=== PATIENT | female | born 1940 | race Caucasian/White ===

== ENCOUNTER → 2017-09-15 17:16 | Outpatient (CLI) | payer MEDICARE, BC, SELFPAY | PROVIDERS: Visit Provider Urology | DX: R31.9 Hematuria, unspecified (principal); R82.99 Other abnormal findings in urine | CPT/HCPCS: 87086; 87088 ==

== ENCOUNTER → 2017-10-21 10:25 | Outpatient (CLI) | payer MEDICARE, BC, SELFPAY ==
[2017-10-21 13:03] LABS: Absolute Lymphocyte Count 0.65 X10^3/ul (0.83-4.51); Absolute Neutrophil Count 5.7 X10^3/uL (2.0-7.7); Basophil# 0.02 X10^3/uL; Basophil% 0.3 % (0-1); Eosinophil# 0.19 X10^3/uL; Eosinophils% 2.7 % (0-5); Hematocrit 37.1 % (37-47); Hemoglobin 11.9 g/dl (12.0-15.0); Lymphocyte # 0.65 X10^3/ul (4.0); Lymphocyte % 9.1 % (19-41); Mean Corp Hgb Conc 32.1 g/gl (32-36); Mean Corpuscular Hgb 30.4 pg (27.0-32.0); Mean Corpuscular Volume 94.6 fL (81-99); Mean Platelet Vol. 9.4 fl (6.2-12.0); Monocyte% 8.4 % (0-10); Neutrophil # 5.65 X10^3/uL (2.7-7.7); Neutrophil % 79.1 % (47-70); Platelet Count 246 K/mm3 (150-450); RBC Distribution Width CV 14.6 % (11.6-14.6); RBC Distribution Width SD 48.4 fl (35.1-43.9); Red Blood Count 3.92 M/mm3 (4.2-5.4); White Blood Count 7.1 K/mm3 (4.4-11.0)
[2017-10-21 13:06] LABS: POSITIVE COUNT NO; POSITIVE DIFFERENTIAL NO; POSITIVE MORPHOLOGY NO
[2017-10-21 13:20] LABS: Anion Gap 7 (5-15); BUN 13 mg/dL (7-18); BUN/Creat Ratio 14.1 RATIO (10-20); Calcium,Total 9.8 mg/dL (8.5-10.1); Chloride 99 mmol/L (98-107); Creatinine, Serum 0.92 mg/dL (0.55-1.02); EST Glomerular Filtration Rate 63 mL/min (>60); Est Glom Filt Rate - Afr Amer 76 mL/min (>60); Glucose 98 mg/dL (74-106); Potassium 3.7 mmol/L (3.5-5.1); Sodium Level 139 mmol/L (136-145); T4 Free Direct 1.52 ng/dL (0.76-1.46); Thyroid Stim Hormone (TSH) 0.97 uIU/mL (0.358-3.74)
== END ==
PROVIDERS: Visit Provider Family Medicine
DX: I10 Essential (primary) hypertension (principal); E03.9 Hypothyroidism, unspecified
CPT/HCPCS: 36415; 80048; 84439; 84443; 85025

== ENCOUNTER → 2017-11-24 16:38 | Outpatient (CLI) | payer MEDICARE, BC, SELFPAY | PROVIDERS: Family Provider Family Medicine; PCP Family Medicine; Visit Provider Urology | DX: N39.0 Urinary tract infection, site not specified (principal) | CPT/HCPCS: 87077; 87086; 87088; 87186 ==

== ENCOUNTER → 2017-12-05 17:24 | Outpatient (CLI) | payer MEDICARE, BC, SELFPAY ==
--- NOTE | 2017-12-05 17:27 | CT_ITS ---
STUDY: CT CHEST WITH CONTRAST REASON FOR EXAM: Female, 77 years old. History of bladder cancer RADIATION DOSAGE (If Supplied By Facility): CTDIvol = ( 19.15 ) mGy, DLP = ( 2632.46 ) mGycm TECHNIQUE: Transaxial imaging was performed following intravenous administration of 100ML ml of Isovue 300 contrast material. Individualized dose optimization techniques were used for this CT. COMPARISON: None. FINDINGS: The lungs are normal. There is no demonstrated pleural abnormality. Normal heart and pericardium. Normal mediastinum. Normal hilar regions. Normal enhanced pulmonary arteries. Normal aorta arch and descending thoracic aorta. Normal osseous structures. There is no demonstrated abnormality of the visualized upper abdomen. CT/Chest WITH Contrast IMPRESSION: Normal enhanced CT Chest examination. Electronically Signed: Ha Vanegas MD at 2:35 EDT Tel , Service support ,
--- NOTE | 2017-12-05 17:27 | CT_ITS ---
STUDY: CT ABDOMEN AND PELVIS WITH CONTRAST REASON FOR EXAM: Female, 77 years old. Bladder cancer RADIATION DOSAGE (If Supplied By Facility): CTDIvol = ( 19.15 ) mGy, DLP = ( 2632.46 ) mGycm TECHNIQUE: Transaxial images were obtained from the dome of the diaphragm to the symphysis pubis with oral contrast. 100ML ml of Isovue 300 contrast was administered. Sagittal and coronal images were reconstructed. Individualized dose optimization techniques were used for this CT. COMPARISON: 09/20/2016 FINDINGS: The visualized lung bases are unremarkable. The visualized portions of the heart are within normal limits. Hypoattenuated lesion in the right posterior hepatic segment with peripheral puddling enhancement, unchanged compared to prior imaging. Calcified stones within a minimally distended gallbladder. No pericholecystic inflammation. Biliary ducts are unremarkable. Normal spleen. Normal pancreas. Normal bilateral adrenal glands. Hypoattenuated lesions within both kidneys measuring near water density. Normal ureters. Normal visualized stomach. Normal small intestine. Normal colon. The appendix is visualized and appears normal. Mild atherosclerotic calcification of the abdominal vasculature. Normal inferior vena cava. Normal retroperitoneum. Marked irregularity of the anterior urinary bladder wall with centralized calcification and pericystic inflammation, worsened from prior imaging. Uterus is surgically absent. Normal abdominal wall. Normal osseous structures. CT/Abdomen/Pelvis WITH Contrast IMPRESSION: 1. Marked irregular thickening of the anterior urinary bladder wall with internal calcification and surrounding ablation, consistent with patient's known history of bladder cancer. 2. Cholelithiasis with no CT evidence of acute cholecystitis. 3. Simple appearing bilateral renal cysts 4. Right posterior hepatic segment hemangioma Electronically Signed: Ha Vanegas MD at 1:52 EDT Tel , Service support ,
[2017-12-05 18:10] LABS: CREATININE FINGERSTICK 1.1 mg/dL (0.55-1.02)
== END ==
PROVIDERS: Family Provider Family Medicine; PCP Family Medicine; Visit Provider Urology
DX: Z01.812 Encounter for preprocedural laboratory examination (principal); Z85.51 Personal history of malignant neoplasm of bladder
CPT/HCPCS: 71260; 74177; Q9967; A4216

== ENCOUNTER → 2018-01-02 10:42 | Outpatient (CLI) | payer MEDICARE, BC, SELFPAY ==
[2018-01-02 12:27] LABS: Anion Gap 8 (5-15); BUN 10 mg/dL (7-18); BUN/Creat Ratio 12.1 RATIO (10-20); Calcium,Total 9.5 mg/dL (8.5-10.1); Chloride 98 mmol/L (98-107); Creatinine, Serum 0.83 mg/dL (0.55-1.02); EST Glomerular Filtration Rate 71 mL/min (>60); Est Glom Filt Rate - Afr Amer 86 mL/min (>60); Glucose 117 mg/dL (74-106); Potassium 3.9 mmol/L (3.5-5.1); Sodium Level 136 mmol/L (136-145)
== END ==
PROVIDERS: Family Provider Family Medicine; PCP Family Medicine; Visit Provider Family Medicine
DX: I10 Essential (primary) hypertension (principal)
CPT/HCPCS: 36415; 80048

== ENCOUNTER 2018-01-17 10:14 | Day surgery (SDC) | payer MEDICARE, BC, SELFPAY ==
--- NOTE | 2018-01-17 | COLBX_PTH ---
PATIENT: Mary ,SHAE Amado LOC: EN U#:[id number] AGE/SX: 77/F ROOM: RE01/17/[address]: Dr. Marta Covarrubias MD : 1940 BED: DIS: 01/17/2018 SPEC #: [id number] RECD: 01/17/18 14:49 STATUS: GENEVA REQ #: [id number] MAYA: 01/17/18 00:[address]: Marta Covarrubias DEPT: SURGICAL PATHOLOGY RECD BY: Ha Mcneal ENTERED: 01/17/18 14:49 SP TYPE: COLON BX OTHR DR: Dr. Yrn Allen MD Tissues: A - Ascending colon B - Descending colon Procedures: Surgery Specimen Level IV HEADER OPERATION: Colonoscopy (MAC) PRE-OP DIAGNOSIS: Screening TISSUE SUBMITTED: A - Ascending colon polyp biopsy, B - Descending colon polyp MICROSCOPIC DIAGNOSIS A. Ascending colon polyp, biopsy: Tubular adenoma. B. Descending colon polyp, biopsy: Tubular adenoma. OSITO:anai 01/18/18 MICROSCOPIC DESCRIPTION Slides are reviewed. GROSS DESCRIPTION A - Received in fixative is one container labeled with the patient's name and designated ascending colon polyp biopsy. The specimen consists of one irregular fragment of light gan soft tissue that measures 0.3 x 0.3 x 0.1 cm. The specimen is totally submitted in one cassette. B - Received in fixative is one container labeled with the patient's name and designated descending colon polyp. The specimen consists of a piece of gan-pink polyp measuring 0.5 x 0.5 x 0.3 cm. The specimen is totally submitted in one cassette. / OSITO:anai 01/17/18 TC:1 CPT: 58495 x2
[2018-01-17 10:40] VITALS: BP 121/58; PULSE 81; RESP 18; TEMP 37.2; O2SAT 100; BMI 31.4
[2018-01-17 12:23] VITALS: BP 100/57; BP 121/58; PULSE 70; RESP 16; TEMP 36.6; O2SAT 100
[2018-01-17 12:28] VITALS: BP 108/69; BP 121/58; PULSE 71; RESP 18; O2SAT 100
--- NOTE | 2018-01-17 12:30 | OP.ENDO_ITS ---
Patient Name: Clover Hernandez Procedure Date: 01/17/2018 11:29 AM Date of : 1940 Age: 77 Procedure: Colonoscopy Indications: Screening for colorectal malignant neoplasm Providers: Marta Covarrubias MD Referring MD: Marta Covarrubias MD Medicines: Monitored Anesthesia Care Patient Profile: Last Colonoscopy: none. The patient's first colonoscopy is today. Complications: No immediate complications. Procedure: Pre-Anesthesia Assessment: - Prior to the procedure, a History and Physical was performed, and patient medications and allergies were reviewed. The patient's tolerance of previous anesthesia was also reviewed. The risks and benefits of the procedure and the sedation options and risks were discussed with the patient. All questions were answered, and informed consent was obtained. Prior Anticoagulants: The patient has taken no previous anticoagulant or antiplatelet agents. ASA Grade Assessment: II - A patient with mild systemic disease. After reviewing the risks and benefits, the patient was deemed in satisfactory condition to undergo the procedure. After I obtained informed consent, the scope was passed under direct vision. Throughout the procedure, the patient's blood pressure, pulse, and oxygen saturations were monitored continuously. The pediatric colonoscope was introduced through the anus and advanced to the cecum, identified by the appendiceal orifice, IC valve and transillumination. The colonoscopy was somewhat difficult due to significant looping. Successful completion of the procedure was aided by applying abdominal pressure. The patient tolerated the procedure well. The quality of the bowel preparation was good. Scope In: 11:39:33 AM Scope Withdrawal Time 0 hours 18 minutes 57 seconds Scope Out: 12:17:28 PM Total Procedure Duration Time 0 hours 37 minutes 55 seconds Findings: A less than 5 mm polyp was found in the ascending colon. The polyp was sessile. The polyp was removed with a cold biopsy forceps. Resection and retrieval were complete. A 4 to 7 mm polyp was found in the descending colon. The polyp was semi-sessile. The polyp was removed with a hot snare. Resection and retrieval were complete. Multiple small-mouthed diverticula were found in the sigmoid colon and ascending colon. Hemorrhoids were found on perianal exam. Impression: - One less than 5 mm polyp in the ascending colon, removed with a cold biopsy forceps. Resected and retrieved. - One 4 to 7 mm polyp in the descending colon, removed with a hot snare. Resected and retrieved. - Diverticulosis in the sigmoid colon and in the ascending colon. - Hemorrhoids found on perianal exam. Recommendation: - Discharge patient to home. - High fiber diet. - Continue present medications. - Await pathology results. - Repeat colonoscopy in 3 - 5 years for surveillance based on pathology results. Procedure Code(s): --- Professional --- 41222, Colonoscopy, flexible; with removal of tumor(s), polyp(s), or other lesion(s) by snare technique 07303, 59, Colonoscopy, flexible; with biopsy, single or multiple Diagnosis Code(s): --- Professional --- Z12.11, Encounter for screening for malignant neoplasm of colon D12.2, Benign neoplasm of ascending colon D12.4, Benign neoplasm of descending colon K64.9, Unspecified hemorrhoids K57.30, Diverticulosis of large intestine without perforation or abscess without bleeding CPT copyright 2017 [employer]. All rights reserved. The codes documented in this report are preliminary and upon plug overwrap machine tender review may be revised to meet current compliance requirements. MD Marta Kearns MD 01/17/2018 12:30:49 PM This report has been signed electronically. Number of Addenda: 0 Note Initiated On: 01/17/2018 11:29 AM
[2018-01-17 12:33] VITALS: BP 109/78; BP 121/58; PULSE 72; RESP 18; O2SAT 99
[2018-01-17 12:38] VITALS: BP 116/65; BP 121/58; PULSE 71; RESP 18; TEMP 36.8; O2SAT 100
[2018-01-17 13:18] VITALS: BP 121/58
== END 2018-01-17 13:19 | disposition home or self-care (01) ==
LOC: EN 10:15 → AC 10:18
PROVIDERS: Family Provider Family Medicine; PCP Family Medicine; Referring Provider Surgery; Visit Provider Surgery
PROC: 0DJD8ZZ Inspection of Lower Intestinal Tract, Via Natural or Artificial Opening Endoscopic (ICD-10-PCS; CPT 45378; principal; 2018-01-17 11:25)
DX: Z12.11 Encounter for screening for malignant neoplasm of colon (principal); D12.2 Benign neoplasm of ascending colon; D12.4 Benign neoplasm of descending colon; K57.30 Diverticulosis of large intestine without perforation or abscess without bleeding; K64.9 Unspecified hemorrhoids; I10 Essential (primary) hypertension; E03.9 Hypothyroidism, unspecified; R32 Unspecified urinary incontinence; R35.0 Frequency of micturition; D64.9 Anemia, unspecified; Z78.0 Asymptomatic menopausal state; Z79.899 Other long term (current) drug therapy; Z85.51 Personal history of malignant neoplasm of bladder; Z87.440 Personal history of urinary (tract) infections; Z92.3 Personal history of irradiation; Z92.21 Personal history of antineoplastic chemotherapy; Z87.891 Personal history of nicotine dependence; Z90.710 Acquired absence of both cervix and uterus
CPT/HCPCS: 45380; 45385; 88305; J7120; A4216

== ENCOUNTER 2018-02-24 15:53 | Inpatient (IN) | payer MEDICARE, BC, SELFPAY ==
[2018-02-23 13:10] VITALS: BMI 28.6
[2018-02-24 15:53] VITALS: BP 113/53; PULSE 85; RESP 14; TEMP 36.9; O2SAT 95
[2018-02-24 17:16] LABS: Mucous, Urine 0 SEEN /hpf (<or=2+)
[2018-02-24 17:50] LABS: Color, Urine Red (Yellow); Glucose, Dipstick Normal (Normal); Ketone-Dipstick 5 mg/dl (Negative); Leukocyte Esterase-Dipstick 500 /ul (Negative); Nitrite-Dipstick Positive (Negative); Occult Blood-Urine 250 /ul (Negative); Protein-Dipstick 100 mg/dl (Negative); Urine Bilirubin Dipstick Negative (Negative); Urine Clarity Cloudy (Clear); Urine Urobilinogen 1 mg/dl (Normal)
[2018-02-24 17:51] LABS: Absolute Lymphocyte Count 0.83 X10^3/ul (0.83-4.51); Absolute Neutrophil Count 8.1 X10^3/uL (2.0-7.7); Basophil# 0.01 X10^3/uL; Basophil% 0.1 % (0-1); Eosinophil# 0.01 X10^3/uL; Eosinophils% 0.1 % (0-5); Hematocrit 27.8 % (37-47); Hemoglobin 8.5 g/dl (12.0-15.0); Lymphocyte # 0.83 X10^3/ul (4.0); Lymphocyte % 8.5 % (19-41); Mean Corp Hgb Conc 30.6 g/gl (32-36); Mean Corpuscular Hgb 27.3 pg (27.0-32.0); Mean Corpuscular Volume 89.4 fL (81-99); Mean Platelet Vol. 8.7 fl (6.2-12.0); Monocyte# 0.83 X10^3/uL; Monocyte% 8.5 % (0-10); Neutrophil # 8.12 X10^3/uL (2.7-7.7); Neutrophil % 82.6 % (47-70); Platelet Count 289 K/mm3 (150-450); RBC Distribution Width CV 18.2 % (11.6-14.6); RBC Distribution Width SD 59.5 fl (35.1-43.9); Red Blood Count 3.11 M/mm3 (4.2-5.4); White Blood Count 9.8 K/mm3 (4.4-11.0)
[2018-02-24 17:55] LABS: POSITIVE COUNT NO; POSITIVE DIFFERENTIAL NO; POSITIVE MORPHOLOGY NO
[2018-02-24 18:03] LABS: Anion Gap 8 (5-15); BUN 14 mg/dL (7-18); BUN/Creat Ratio 15.8 RATIO (10-20); Calcium,Total 8.4 mg/dL (8.5-10.1); Chloride 102 mmol/L (98-107); Creatinine, Serum 0.89 mg/dL (0.55-1.02); EST Glomerular Filtration Rate 66 mL/min (>60); Est Glom Filt Rate - Afr Amer 79 mL/min (>60); Estimated Creatinine Clearance 45.71 ml/min; Glucose 109 mg/dL (74-106); Potassium 3.2 mmol/L (3.5-5.1); Sodium Level 137 mmol/L (136-145)
[2018-02-24 18:17] LABS: Amorphous Sediment 4+; Bacteria 4+ /hpf (None Seen); Red Blood Cells-Urine > 100 SEEN /hpf (0-5); Squamous Epithelial Cells - UA 25-50 SEEN /hpf (5-10); White Blood Cells >100 SEEN /hpf (0-5)
[2018-02-24 18:50] LABS: International Normalized Ratio 1.3; Prothrombin Time (Protime)PT. 15.8 SECONDS (11.7-14.9)
[2018-02-24 19:13] VITALS: BP 145/75; PULSE 81; RESP 16; O2SAT 93
--- NOTE | 2018-02-24 19:22 | ED.DCSUM_ITS ---
- ER Visit Summary Date of Service: 02/24/18 Chief Complaint: [Romeo catheter problem] History of Present Illness: The patient is a 77 F [presents the emergency department complaint of Romeo catheter not draining. Patient has had a Romeo catheter in for about 2 weeks. Patient has a history of bladder cancer and recently was evaluated for possible surgery to remove her bladder and she was deemed not to be a good surgical candidate. Patient states that she had no urine in the Romeo bag this morning. Patient did state that her depends however was wet. Patient was advised by Dr. Alonzo to be evaluated in the emergency department. Patient denies any fevers. She has not had any vomiting. Patient denies any blood in her stool or black tarry stools. Patient currently on Coumadin for history of DVT and is also on Lovenox.] Physical Examination: [HEENT-PERRLA, EOMI. Cranial nerves II through XII grossly intact. TMs clear. Mucous membranes moist. No adenopathy. Cardiovascular-regular rate and rhythm without murmur or ectopy Lungs-clear to auscultation, chest wall stable without crepitus or subcu emphysema Abdomen-normoactive bowel sounds, soft, nontender, no rebound or rigidity, no peritoneal signs. Extremities-intact ?4, normal range of motion, normal pulses, atraumatic] Test Results: [CBC with additional cannot 9.8, hemoglobin 8.5, hematocrit 28, platelets 289. Chemistries unremarkable. INR was 1.3. Bladder scan initially only showed 28 cc.] Urinalysis was positive for greater than 100 WBCs, positive for nitrites, positive for 500 leukocyte esterase, positive for +4 bacteria. Urine culture was sent. Emergency Department Course and Treatment: [New Romeo catheter was placed.] Treatment Plan: [Patient was ordered vancomycin and Rocephin] Disposition: [Admit] Impression: [UTI Anemia Coumadin coagulopathy] This note was generated with [employer] dictation software. It may contain incorrect words, spelling, and punctuation that were not noted in review of the chart prior to signing ED Disposition - Plan for ED Patient: Chief Complaint: Romeo C/O Referrals: Yrn Allen MD [Primary Care Provider] -
--- NOTE | 2018-02-24 19:28 | PCM.HP.STD ---
Problem List (1) Cystitis Status: Acute History of Present Illness Date of Admission: 02/24/18 Chief Complaint: dominguez catheter not draining The patient is a 77 year old F with a significant history of bladder cancer status post chemotherapy and radiation and with an indwelling Dominguez catheter who presented to the emergency department because her catheter was not draining. However her depends were wet. Patient talked to her urologist who sent patient to the emergency department for for possible change of her urinary catheter. At emergency department her Dominguez catheter was changed and it was noticed to be draining appropriately. Her urinalysis was abnormal. Family reported that occasionally patient has chills. Patient was on outpatient cefdinir for a urinary tract infection. In regard to her bladder cancer patient was scheduled for surgery on the at [facility]. However while on the operating table it was found that her left leg was swollen. Also after patient had received anesthesia it was realized that her breathing pattern was not good. Because of the above-stated reasons and because of general deconditioning her bladder surgery was called off. Subsequent tests showed that patient had 2 blood clots in the left leg; one above the knee and one below the knee. She was started on Lovenox. About 3 days ago Coumadin was also started. At emergency department patient's INR was subtherapeutic at 1.3. Also to follow-up patient has low hemoglobin. In regard to her bladder cancer patient follows up with Dr. Mcgill Past Medical History Past Medical History (Chronic Problems): Chronic Problems (Last Reviewed 02/24/18 @ 20:24 by Murtaza Stanley MD) Bladder carcinoma (Chronic) History of bladder cancer (Chronic) Medical History: Medical History (Last Reviewed 02/24/18 @ 20:24 by Murtaza Stanley MD) Encounter for adjustment or management of vascular access device (Acute) Z45.2 Bladder carcinoma (Chronic) C67.9 Bladder cancer (Acute) C67.9 History of bladder cancer (Chronic) Z85.51 Hematuria, microscopic R31.29 History of hysterectomy Z98.890, Z90.710 Hypothyroidism E03.9 Incontinence R32 Recurrent UTI N39.0 UTI (urinary tract infection) N39.0 Urinary frequency R35.0 Hypertension I10 Allergies Sulfa (Sulfonamide Antibiotics) Allergy (Intermediate, Verified 02/24/18 15:57) Rash adhesive tape Adverse Reaction (Mild, Verified 02/24/18 15:57) Rash bee venom protein (honey bee) Adverse Reaction (Verified 02/24/18 15:57) Swelling Home Medications: Ambulatory Orders Medication Instructions Recorded traMADol [Ultram] 50 mg PO BID 11/22/15 Levothyroxine [Synthroid] 100 mcg PO DAILY 05/14/16 Acetaminophen [Tylenol Extra 500 mg PO Q6H PRN PRN 02/23/18 Strength] Cefdinir [Omnicef [equiv]] 300 mg PO Q12H 02/23/18 Fluoxetine [Prozac] 20 mg PO DAILY 02/23/18 Mirabegron [Myrbetriq] 50 mg PO DAILY 02/23/18 Warfarin [Coumadin ([facility])] 2.5 mg PO DAILY 02/23/18 Docusate Sodium [Colace] 100 mg PO DAILY 02/24/18 Enoxaparin Sodium [Lovenox] 80 mg SQ BID 02/24/18 Hydroxyzine HCl 1 - 2 tab PO DAILY 02/24/18 Surgical History: Surgical History (Last Reviewed 02/24/18 @ 20:24 by Murtaza Stanley MD) History of back surgery Z98.890 History of renal stent Z98.890 History of tonsillectomy Z98.890, Z90.89 S/P cystoscopy Z98.890 s/p port placement Lives: Spouse/ Significant Other Smoking Status: Former smoker Alcohol: None - *Family History Maternal Family History: Family History (Last Reviewed 02/24/18 @ 20:25 by Murtaza Stanley MD) Mother Hypertension Arthritis Father Metastatic cancer Review of Systems Constitutional: Reports: Chills HEENT: Denies: Head Aches, Sinus Congestion, Sinus Drainage Cardiovascular: Denies: Chest Pain, Palpitations Respiratory: Denies: Cough, Shortness of breath at rest, Sputum production Gastrointestinal: Denies: Abdominal Pain, Nausea, Vomiting Genitourinary: Reports: - - Dominguez catheter was not draining; but her depends were getting wet. Musculoskeletal: Reports: Back Pain. Denies: Joint Pain, Joint Tenderness Skin: Reports: Wounds - At the gluteal region Neurological: Denies: Numbness, Tingling, Focal weakness Psychiatric: Denies: Anxiety, Depression, Homicidal Ideations, Suicidal Ideations Hematologic/ Lymphatic: Denies: Easy Bruising, Easy Bleeding VTE Information - Inpt Only VTE Present on Admission: Yes VTE Mechan Device Prophylaxis: None VTE Pharm Prophylaxis ordered?: No Reason prophylaxis not ordered:: Treatment Not Indicated - On treatment dose of Lovenox and Coumadin for DVT. Patient Problems: Active and Suspected Problems (Last Reviewed 02/24/18 @ 20:24 by Murtaza Stanley MD) Cystitis (Acute) - Physical Exam General: Alert, Oriented x3, Cooperative HEENT: Atraumatic, PERRLA, EOMI, Normocephalic Neck: Supple, No JVD, Negative Carotid Bruits Lungs: Clear to auscultation, Normal air movement, - - Port-A-Cath on the right side of chest. Cardiovascular: Regular rate, No murmurs Abdomen: Bowel Sounds Present, Soft, Non Tender Extremities: No edema, Capillary Refill Less than 3 Seconds, Edema - Bilateral legs with some bruises on beal of left leg. Skin: No rashes, Ulcer/ Wound - Pressure ulcer on cheek of left buttocks and skin projections on the right buttocks. Noted to have prolapsed rectum. Musculoskeletal: No Tenderness to Palpation of Joints or Extremities Neurological: Neuro grossly intact Psych/Mental Status: Normal Affect, Appropriate Vital Signs Temp Pulse Resp BP Pulse Ox 98.4 F 81 16 145/75 H 93 02/24/18 15:53 02/24/18 19:13 02/24/18 19:13 02/24/18 19:13 02/24/18 19:13 Oxygen Delivery Method Room Air Weight: 79.379 kg Body Mass Index (BMI) 30.0 Laboratory Tests Past 24 Hrs 02/24/18 02/24/18 02/24/18 16:57 17:35 17:35 WBC 9.8 RBC 3.11 L Hgb 8.5 L Hct 27.8 L MCV 89.4 MCH 27.3 MCHC 30.6 L RDW 18.2 H RDW Differential 59.5 H Plt Count 289 MPV 8.7 Immature Gran % (Auto) 0.200 Neut % (Auto) 82.6 H Lymph % (Auto) 8.5 L [place] % (Auto) 8.5 Eos % (Auto) 0.1 Baso % (Auto) 0.1 Absolute Neuts (auto) 8.1 H Absolute Lymphs (auto) 0.83 Total Counted Not Reportable PT INR Sodium 137 Potassium 3.2 L Chloride 102 Carbon Dioxide 27.0 Anion Gap 8 BUN 14 Creatinine 0.89 Estim Creat Clear Calc 45.71 Est GFR (MDRD) Af Amer 79 Est GFR (MDRD) Non-Af 66 BUN/Creatinine Ratio 15.8 Glucose 109 H Calcium 8.4 L Urine Color Red Urine Clarity Cloudy Urine pH 8.0 Ur Specific [place] 1.010 Urine Protein 100 H Urine Glucose (UA) Normal Urine Ketones 5 H Urine Occult Blood 250 H Urine Nitrite Positive H Urine Bilirubin Negative Urine Urobilinogen 1 H Ur Leukocyte Esterase 500 H Urine RBC > 100 SEEN Urine WBC >100 SEEN Ur Squamous Epith Cells 25-50 SEEN Amorphous Sediment 4+ Urine Bacteria 4+ Urine Mucus 0 SEEN 02/24/18 18:20 WBC RBC Hgb Hct MCV MCH MCHC RDW RDW Differential Plt Count MPV Immature Gran % (Auto) Neut % (Auto) Lymph % (Auto) [place] % (Auto) Eos % (Auto) Baso % (Auto) Absolute Neuts (auto) Absolute Lymphs (auto) Total Counted PT 15.8 H INR 1.3 Sodium Potassium Chloride Carbon Dioxide Anion Gap BUN Creatinine Estim Creat Clear Calc Est GFR (MDRD) Af Amer Est GFR (MDRD) Non-Af BUN/Creatinine Ratio Glucose Calcium Urine Color Urine Clarity Urine pH Ur Specific [place] Urine Protein Urine Glucose (UA) Urine Ketones Urine Occult Blood Urine Nitrite Urine Bilirubin Urine Urobilinogen Ur Leukocyte Esterase Urine RBC Urine WBC Ur Squamous Epith Cells Amorphous Sediment Urine Bacteria Urine Mucus Assessment/Plan All Active Problems (Last Reviewed 02/24/18 @ 20:24 by Murtaza Stanley MD) Cystitis (Acute) Encounter for adjustment or management of vascular access device (Acute) Bladder cancer (Acute) The patient is a 77 year old F with a significant history of bladder cancer status post chemotherapy and radiation and with an indwelling Dominguez catheter who presented to the emergency department because her catheter was not draining; and found to have persistent abnormal urinalysis;as well as anemia. Acute cystitis Patient was started on cefdinir before this hospitalization. Of note she had a Dominguez catheter placed and this could be due to colonization. Will treat as acute cystitis. Urine cultures are pending. Patient received Ceftriaxone at the emergency department. Ceftriaxone continued. DVT In the last 2 weeks two blood clot was found in patient's left leg. Family reported that she has a previous history of DVT in the right leg. Of concern is that patient has a decreased hemoglobin. However to prevent PE will continue Coumadin with Lovenox bridge. We will continue same dose of Coumadin 2.5 mg without increasing the dosage. Consideration was made for heparin drip. However we will continue Lovenox and Coumadin for now. Bladder cancer Patient follows up with Dr. Alonzo and Dr. Mcgill Continue outpatient follow-up. We will continue mirabegron for bladder spasms. Normocytic Anemia RBCs are low. Review of old records show that her hemoglobin has dropped by about 3-4. Her last chemotherapy and radiation was about a year ago and is unlikely causing her symptoms. Occult stool; iron studies and haptoglobin ordered. LDH will be high anyway for patients with cancer. Consider discussing with Dr. Mcgill who is patient's oncologist Pressure ulcer on gluteal region Calmoseptine ordered Wound care consult. Back pain Patient and family reports a history of spinal stenosis with rods in her back. Ultram continued. Depression Prozac continued Hypothyroidism Synthroid continued. DVT prophylaxis Not indicated in the setting of patient being on Lovenox and Coumadin for DVT. Code Visit OBSV E&M: 29173 Initial observation care L3
[2018-02-24] MEDS: Ceftriaxone 1 GM/50 ML BAG IV (19:34)
[2018-02-24 19:39] VITALS: TEMP 38.1
[2018-02-24] MEDS: Acetaminophen 325 MG Tablet 650 MG PO (19:53)
[2018-02-24 21:22] VITALS: BP 106/49; PULSE 88; RESP 16; TEMP 37.4; O2SAT 94
[2018-02-24 21:36] VITALS: BMI 29.1
[2018-02-24 22:07] LABS: Iron 15 ug/dL (50-170); Iron Binding Capacity,Total 118 ug/dL (250-450); PERCENT IRON SATURATION 12.7 % (15.0-55.0)
[2018-02-24] MEDS: Enoxaparin 80 MG/0.8 ML Syringe SC (22:36)
[2018-02-24] MEDS: traMADol 50 MG Tablet PO (22:37)
[2018-02-24 22:41] VITALS: O2SAT 94
[2018-02-24] MEDS: Menthol/Lanolin/Calamine/Znox 113 GM Tube 1 APPLIC TOPICAL (22:45)
[2018-02-24 22:54] LABS: Ferritin 652 ng/mL (8-252)
[2018-02-24] MEDS: hydrOXYzine PAM 25 MG Capsule PO (23:24)
[2018-02-24] MEDS: Zolpidem Tartrate 5 MG Tablet PO (23:24)
--- NOTE | 2018-02-24 23:48 | NURSING ---
Called Lab about STAT haptoglobin put in by DR. Stanley and they said lab would come up in the am. to draw it with the other labs because it is sent out and results will not be back for 3 or 4 days.
[2018-02-25 02:31] VITALS: BP 124/53; PULSE 82; RESP 16; TEMP 36.8; O2SAT 95
--- NOTE | 2018-02-25 05:19 | NURSING ---
Checked with Villa in lab about PT/INR draw from central line. He advised against it in case someone would want to result a PTT off that lab sample which would not be allowed. He will notify tech to come and draw peripherally.
[2018-02-25] MEDS: Levothyroxine 100 MCG Tablet PO (06:17)
[2018-02-25 07:31] LABS: Absolute Lymphocyte Count 0.69 X10^3/ul (0.83-4.51); Absolute Neutrophil Count 6.8 X10^3/uL (2.0-7.7); Basophil# 0.02 X10^3/uL; Basophil% 0.2 % (0-1); Eosinophil# 0.12 X10^3/uL; Eosinophils% 1.4 % (0-5); Hematocrit 28.2 % (37-47); Hemoglobin 8.3 g/dl (12.0-15.0); Lymphocyte # 0.69 X10^3/ul (4.0); Lymphocyte % 8.2 % (19-41); Mean Corp Hgb Conc 29.4 g/gl (32-36); Mean Corpuscular Hgb 27.1 pg (27.0-32.0); Mean Corpuscular Volume 92.2 fL (81-99); Mean Platelet Vol. 9.5 fl (6.2-12.0); Monocyte# 0.74 X10^3/uL; Monocyte% 8.8 % (0-10); Neutrophil # 6.77 X10^3/uL (2.7-7.7); Neutrophil % 80.9 % (47-70); Platelet Count 312 K/mm3 (150-450); RBC Distribution Width CV 18.1 % (11.6-14.6); RBC Distribution Width SD 58.3 fl (35.1-43.9); Red Blood Count 3.06 M/mm3 (4.2-5.4); White Blood Count 8.4 K/mm3 (4.4-11.0)
[2018-02-25 07:32] LABS: POSITIVE COUNT NO; POSITIVE DIFFERENTIAL NO; POSITIVE MORPHOLOGY NO
[2018-02-25 07:40] VITALS: O2SAT 92
[2018-02-25 07:42] LABS: International Normalized Ratio 1.2; Prothrombin Time (Protime)PT. 15.5 SECONDS (11.7-14.9)
[2018-02-25 08:09] LABS: Anion Gap 8 (5-15); BUN 13 mg/dL (7-18); BUN/Creat Ratio 14.8 RATIO (10-20); Calcium,Total 8.6 mg/dL (8.5-10.1); Chloride 103 mmol/L (98-107); Creatinine, Serum 0.88 mg/dL (0.55-1.02); EST Glomerular Filtration Rate 66 mL/min (>60); Est Glom Filt Rate - Afr Amer 80 mL/min (>60); Estimated Creatinine Clearance 46.23 ml/min; Glucose 92 mg/dL (74-106); Potassium 3.7 mmol/L (3.5-5.1); Sodium Level 138 mmol/L (136-145)
[2018-02-25 08:12] VITALS: BP 112/60; PULSE 88; RESP 18; TEMP 37.3; O2SAT 96
[2018-02-25 08:14] VITALS: PULSE 88; RESP 18; O2SAT 93
[2018-02-25] MEDS: FLUoxetine 20 MG Capsule PO (11:00)
[2018-02-25] MEDS: Menthol/Lanolin/Calamine/Znox 113 GM Tube 1 APPLIC TOPICAL ×2 (11:00→22:24)
[2018-02-25] MEDS: Docusate Sodium 100 MG Capsule PO (11:00)
[2018-02-25] MEDS: traMADol 50 MG Tablet PO ×2 (11:00→22:22)
[2018-02-25] MEDS: Mirabegron 50 MG TAB.ER.24H PO (11:01)
[2018-02-25] MEDS: Enoxaparin 80 MG/0.8 ML Syringe SC ×2 (11:01→22:23)
[2018-02-25 15:00] VITALS: PULSE 80
--- NOTE | 2018-02-25 15:59 | CM.UR ---
See RM assessment. Patient denies any needs. States she does not want to go to SNF. States that she is fearful to do transfer. Been doing sponge baths due to fear of the transfers. PT is currently recommending 5x a week therapy. Patient at this time doesn't want to go to SNF but is willing to do home care. Is agreeable to [facility]. Ayla Valera RN, CCM.
--- NOTE | 2018-02-25 18:26 | PN_ITS ---
Patient Problems: Active and Suspected Problems (Last Reviewed 02/24/18 @ 20:24 by Murtaza Stanley MD) Cystitis (Acute) Subjective: Feels well, no complaints at this time, no lightheadedness or dizziness. Ousmane is now working Vitals/I&O's: Vital Signs Temp Pulse Resp BP Pulse Ox 99.1 F 80 18 112/60 93 02/25/18 08:12 02/25/18 15:00 02/25/18 08:14 02/25/18 08:12 02/25/18 08:14 Oxygen Delivery Method Room Air Weight: 170 lb 10.205 oz Body Mass Index (BMI) 29.1 Intake and Output for Last 24 Hours 02/23/18 02/24/18 02/25/18 23:59 23:59 23:59 Intake Total 1890 / 1890 Output Total 1025 / 1025 Balance 865 / 865 General: Alert, Oriented x3, Cooperative, No apparent distress HEENT: Atraumatic, EOMI, Normocephalic Oral: Moist Mucosa Neck: Supple, No JVD Lungs: Clear to auscultation, Normal air movement, No rhonchi, No wheeze, No rales Cardiovascular: Regular rate, Regular Rhythm, Normal S1, Normal S2, No murmurs Abdomen: Soft, Non Tender, Non-Distended, No Hepato-splenomegaly Extremities: No edema, Capillary Refill Less than 3 Seconds Skin: No rashes, No breakdown Neurological: Neuro grossly intact, Sensory exam intact to light touch and pain Microbiology Past 72 Hours 02/24/18 16:57 Urine Catheter - Dominguez Urine Culture - Preliminary GNR Poss Pseudomonas sp Laboratory Results 02/24/18 17:35: Iron 15 L, TIBC 118 L, Iron Saturation 12.7 L 02/24/18 17:35: Ferritin 652 H 02/24/18 18:20: PT 15.8 H, INR 1.3 02/25/18 06:10: PT 15.5 H, INR 1.2 02/25/18 06:10: Haptoglobin Pending 02/25/18 06:10: WBC 8.4, RBC 3.06 L, Hgb 8.3 L, Hct 28.2 L, MCV 92.2, MCH 27.1, MCHC 29.4 L, RDW 18.1 H, RDW Differential 58.3 H, Plt Count 312, MPV 9.5, Immature Gran % (Auto) 0.500, Neut % (Auto) 80.9 H, Lymph % (Auto) 8.2 L, [place] % (Auto) 8.8, Eos % (Auto) 1.4, Baso % (Auto) 0.2, Absolute Neuts (auto) 6.8, Absolute Lymphs (auto) 0.69 L, Total Counted Not Reportable 02/25/18 06:10: Sodium 138, Potassium 3.7, Chloride 103, Carbon Dioxide 27.0, Anion Gap 8, BUN 13, Creatinine 0.88, Estim Creat Clear Calc 46.23, Est GFR (MDRD) Af Amer 80, Est GFR (MDRD) Non-Af 66, BUN/Creatinine Ratio 14.8, Glucose 92, Calcium 8.6 Current Medications Acetaminophen (Tylenol) 650 mg PO Q6H PRN PRN PRN Reason: Mild Pain (scale 0-3)/T>100.7 Bisacodyl (Dulcolax) 10 mg PO DAILY PRN PRN PRN Reason: Constipation Calamine/Phenol (Calmoseptine Ointment) 1 applic TOPICAL BID [facility]; Protocol Last Admin: 02/25/18 11:00 Dose: 1 applicatio Docusate Sodium (Colace) 100 mg PO DAILY [facility] Last Admin: 02/25/18 11:00 Dose: 100 mg Enoxaparin Sodium (Lovenox) 80 mg SC BID [facility] Last Admin: 02/25/18 11:01 Dose: 80 mg Fluoxetine HCl (Prozac) 20 mg PO DAILY [facility] Last Admin: 02/25/18 11:00 Dose: 20 mg Heparin Sodium (Beef Lung) () 50 units IV UD PRN PRN Reason: HEPARIN FLUSH Hydroxyzine Pamoate (Vistaril Pamoate Capsule) 25 mg PO QHS [facility] Last Admin: 02/24/18 23:24 Dose: 25 mg Levothyroxine Sodium (Synthroid) 100 mcg PO DAILY@0600 [facility] Last Admin: 02/25/18 06:17 Dose: 100 mcg Magnesium Hydroxide (Milk Of Magnesia) 30 ml PO DAILY PRN PRN PRN Reason: Constipation Nutritional Formula (Lactose Free) (Ensure Enlive) 120 ml PO 4X/DAY [facility] Last Admin: 02/25/18 17:42 Dose: 120 ml Ondansetron HCl (Zofran) 4 mg IV Q8H PRN PRN PRN Reason: NAUSEA Sodium Chloride () 10 ml IV UD PRN PRN Reason: VAD FLUSH Tramadol HCl (Ultram) 50 mg PO BID [facility] Last Admin: 02/25/18 11:00 Dose: 50 mg Warfarin Sodium (Coumadin (Pbkc)) 2.5 mg PO DAILY@1700 [facility] Last Admin: 02/25/18 17:42 Dose: 2.5 mg Zolpidem Tartrate (Ambien (Generic)) 5 mg PO QHS PRN PRN PRN Reason: INSOMNIA Last Admin: 02/24/18 23:24 Dose: 5 mg Medical Necessity - Tobacco Use Smoking Status: Former smoker Tobacco Use: Cigarettes Assessment/Plan All Active Problems (Last Reviewed 02/24/18 @ 20:24 by Murtaza Stanley MD) Cystitis (Acute) Encounter for adjustment or management of vascular access device (Acute) Bladder cancer (Acute) 1. Malfunctioning Dominguez catheter/Chronic cystitis/Stage 2 bladder cancer/Pressure ulcer - She presented from home because her dominguez was not working - replaced in the ER and draining - She is not on operative candidate and has an open sore on her buttuck which precludes her from chemo at the moment - Per Oncology office noter, her chemo would be palliative in nature - Her cystitis is chronic and is on chronic amoxicillin for this and she is not symptomatic - Will DC abx - Wound care consult - I had a long discussion with her about prognosis and advance care planning, she does not want a SNF for therapy, will plan for DC on palliative care and home PT if possible. She will follow up with her PCP and oncologist as an outpatient for coordination fo care 2. DVT/Normocytic anemia - This was found 2 weeks ago at [facility] before her bladder resection surgery - Surgery was canceled because she was a poor candidate - She is currently on coumadin and will follow INR - can Can switch to xarelto or eliquis as an outpatient, PCC has demonstrated effect as a reversal agent for both - H/H is 8.3, will monitor, no aggressive work-up at the moment and will transfuse as needed 3. Depression - stable - c/w prozac 4. Hypothyroidism - stable - c/w synthroid DVT: Lovenox until coumadin is therapeutic Code Visit Inpatient E&M: 13591 Subs Hosp L2
[2018-02-25 20:00] VITALS: BP 116/60; PULSE 86; RESP 16; TEMP 37.4; O2SAT 95
[2018-02-25] MEDS: hydrOXYzine PAM 25 MG Capsule PO (22:22)
[2018-02-26 01:56] VITALS: BP 119/60; PULSE 79; RESP 16; TEMP 37.2; O2SAT 95
[2018-02-26] MEDS: Levothyroxine 100 MCG Tablet PO (06:09)
[2018-02-26] MEDS: 0.9% NaCl VAD Flush 10 ML IV ×3 (06:10→06:12)
--- NOTE | 2018-02-26 06:36 | PCM.PN.HOSP ---
Patient Problems: Active and Suspected Problems (Last Reviewed 02/24/18 @ 20:24 by Murtaza Stanley MD) Cystitis (Acute) Subjective: Feels fine, no complaints at the moment. Would like to go home Vitals/I&O's: Vital Signs Temp Pulse Resp BP Pulse Ox 98.9 F 79 16 119/60 95 02/26/18 01:56 02/26/18 01:56 02/26/18 01:56 02/26/18 01:56 02/26/18 01:56 Oxygen Delivery Method Room Air Weight: 170 lb 10.205 oz Body Mass Index (BMI) 29.1 Intake and Output for Last 24 Hours 02/24/18 02/25/18 02/26/18 23:59 23:59 23:59 Intake Total 1890 / 1890 Output Total 1025 / 1025 300 / 300 Balance 865 / 865 -300 / -300 General: Alert, Oriented x3, Cooperative, No apparent distress HEENT: Atraumatic, EOMI, Normocephalic Oral: Moist Mucosa Neck: Supple, No JVD Lungs: Clear to auscultation, Normal air movement, No rhonchi, No wheeze, No rales Cardiovascular: Regular rate, Regular Rhythm, Normal S1, Normal S2, No murmurs Abdomen: Soft, Non Tender, Non-Distended, No Hepato-splenomegaly Extremities: No edema, Capillary Refill Less than 3 Seconds Skin: No rashes, No breakdown Neurological: Neuro grossly intact, Sensory exam intact to light touch and pain Microbiology Past 72 Hours 02/24/18 16:57 Urine Catheter - Dominguez Urine Culture - Preliminary GNR Poss Pseudomonas sp Laboratory Results 02/25/18 06:10: PT 15.5 H, INR 1.2 02/25/18 06:10: Haptoglobin Pending 02/25/18 06:10: WBC 8.4, RBC 3.06 L, Hgb 8.3 L, Hct 28.2 L, MCV 92.2, MCH 27.1, MCHC 29.4 L, RDW 18.1 H, RDW Differential 58.3 H, Plt Count 312, MPV 9.5, Immature Gran % (Auto) 0.500, Neut % (Auto) 80.9 H, Lymph % (Auto) 8.2 L, [place] % (Auto) 8.8, Eos % (Auto) 1.4, Baso % (Auto) 0.2, Absolute Neuts (auto) 6.8, Absolute Lymphs (auto) 0.69 L, Total Counted Not Reportable 02/25/18 06:10: Sodium 138, Potassium 3.7, Chloride 103, Carbon Dioxide 27.0, Anion Gap 8, BUN 13, Creatinine 0.88, Estim Creat Clear Calc 46.23, Est GFR (MDRD) Af Amer 80, Est GFR (MDRD) Non-Af 66, BUN/Creatinine Ratio 14.8, Glucose 92, Calcium 8.6 02/26/18 05:55: WBC Pending, RBC Pending, Hgb Pending, Hct Pending, MCV Pending, MCH Pending, MCHC Pending, RDW Pending, RDW Differential Pending, Plt Count Pending, Neut % (Auto) Pending, Absolute Neuts (auto) Pending, Total Counted Pending Current Medications Acetaminophen (Tylenol) 650 mg PO Q6H PRN PRN PRN Reason: Mild Pain (scale 0-3)/T>100.7 Bisacodyl (Dulcolax) 10 mg PO DAILY PRN PRN PRN Reason: Constipation Calamine/Phenol (Calmoseptine Ointment) 1 applic TOPICAL BID [facility]; Protocol Last Admin: 02/25/18 22:24 Dose: 1 applicatio Docusate Sodium (Colace) 100 mg PO DAILY [facility] Last Admin: 02/25/18 11:00 Dose: 100 mg Enoxaparin Sodium (Lovenox) 80 mg SC BID [facility] Last Admin: 02/25/18 22:23 Dose: 80 mg Fluoxetine HCl (Prozac) 20 mg PO DAILY [facility] Last Admin: 02/25/18 11:00 Dose: 20 mg Heparin Sodium (Beef Lung) () 50 units IV UD PRN PRN Reason: HEPARIN FLUSH Hydroxyzine Pamoate (Vistaril Pamoate Capsule) 25 mg PO QHS [facility] Last Admin: 02/25/18 22:22 Dose: 25 mg Levothyroxine Sodium (Synthroid) 100 mcg PO DAILY@0600 [facility] Last Admin: 02/26/18 06:09 Dose: 100 mcg Magnesium Hydroxide (Milk Of Magnesia) 30 ml PO DAILY PRN PRN PRN Reason: Constipation Nutritional Formula (Lactose Free) (Ensure Enlive) 120 ml PO 4X/DAY [facility] Last Admin: 02/25/18 22:24 Dose: 120 ml Ondansetron HCl (Zofran) 4 mg IV Q8H PRN PRN PRN Reason: NAUSEA Sodium Chloride () 10 ml IV UD PRN PRN Reason: VAD FLUSH Last Admin: 02/26/18 06:12 Dose: 10 ml Tramadol HCl (Ultram) 50 mg PO BID [facility] Last Admin: 02/25/18 22:22 Dose: 50 mg Warfarin Sodium (Coumadin (Pbkc)) 2.5 mg PO DAILY@1700 [facility] Last Admin: 02/25/18 17:42 Dose: 2.5 mg Zolpidem Tartrate (Ambien (Generic)) 5 mg PO QHS PRN PRN PRN Reason: INSOMNIA Last Admin: 02/24/18 23:24 Dose: 5 mg Medical Necessity - Tobacco Use Smoking Status: Former smoker Tobacco Use: Cigarettes Assessment/Plan All Active Problems (Last Reviewed 02/24/18 @ 20:24 by Murtaza Stanley MD) Cystitis (Acute) Encounter for adjustment or management of vascular access device (Acute) Bladder cancer (Acute) 1. Malfunctioning Dominguez catheter/Chronic cystitis/Stage 2 bladder cancer/Pressure ulcer - She presented from home because her dominguez was not working, she has a dominguez because of chronic incontinence - replaced in the ER and draining - She is not on operative candidate and has an open sore on her buttock which precludes her from chemo at the moment - Per Oncology office note, her chemo would be palliative in nature - Her cystitis is chronic and is on chronic amoxicillin for this and she is not symptomatic, currently with Pseudomonas, will not treat unless symptomatic, afebrile and no leukocytosis - Wound care consult - I had a long discussion with her about prognosis and advance care planning, she does not want a SNF for therapy, will plan for DC on palliative care and home PT if possible. She will follow up with her PCP and oncologist as an outpatient for coordination fo care 2. DVT/Normocytic anemia - This was found 2 weeks ago at [facility] before her bladder resection surgery - Surgery was canceled because she was a poor candidate - She is currently on coumadin and will follow INR - can Can switch to xarelto or eliquis as an outpatient, PCC has demonstrated effect as a reversal agent for both - H/H is 8.3, will monitor, no aggressive work-up at the moment and will transfuse as needed 3. Depression - stable - c/w prozac 4. Hypothyroidism - stable - c/w synthroid DVT: Therapeutic Lovenox until coumadin is therapeutic Code Visit Inpatient E&M: 02214 Subs Hosp L2
[2018-02-26 06:38] LABS: Absolute Lymphocyte Count 0.83 X10^3/ul (0.83-4.51); Basophil# 0.01 X10^3/uL; Basophil% 0.1 % (0-1); Eosinophil# 0.16 X10^3/uL; Eosinophils% 1.8 % (0-5); Hematocrit 26.5 % (37-47); Hemoglobin 7.9 g/dl (12.0-15.0); Lymphocyte # 0.83 X10^3/ul (4.0); Lymphocyte % 9.4 % (19-41); Mean Corp Hgb Conc 29.8 g/gl (32-36); Mean Corpuscular Hgb 26.8 pg (27.0-32.0); Mean Corpuscular Volume 89.8 fL (81-99); Mean Platelet Vol. 8.5 fl (6.2-12.0); Monocyte% 9.1 % (0-10); Neutrophil # 6.98 X10^3/uL (2.7-7.7); Neutrophil % 79.3 % (47-70); Platelet Count 279 K/mm3 (150-450); RBC Distribution Width CV 18.2 % (11.6-14.6); RBC Distribution Width SD 59.7 fl (35.1-43.9); Red Blood Count 2.95 M/mm3 (4.2-5.4); White Blood Count 8.8 K/mm3 (4.4-11.0)
--- NOTE | 2018-02-26 06:39 | PN_ITS ---
Patient Problems: Active and Suspected Problems (Last Reviewed 02/24/18 @ 20:24 by Murtaza Stanley MD) Cystitis (Acute) Subjective: Feels fine, no complaints at the moment. Would like to go home Vitals/I&O's: Vital Signs Temp Pulse Resp BP Pulse Ox 98.9 F 79 16 119/60 95 02/26/18 01:56 02/26/18 01:56 02/26/18 01:56 02/26/18 01:56 02/26/18 01:56 Oxygen Delivery Method Room Air Weight: 170 lb 10.205 oz Body Mass Index (BMI) 29.1 Intake and Output for Last 24 Hours 02/24/18 02/25/18 02/26/18 23:59 23:59 23:59 Intake Total 1890 / 1890 Output Total 1025 / 1025 300 / 300 Balance 865 / 865 -300 / -300 General: Alert, Oriented x3, Cooperative, No apparent distress HEENT: Atraumatic, EOMI, Normocephalic Oral: Moist Mucosa Neck: Supple, No JVD Lungs: Clear to auscultation, Normal air movement, No rhonchi, No wheeze, No rales Cardiovascular: Regular rate, Regular Rhythm, Normal S1, Normal S2, No murmurs Abdomen: Soft, Non Tender, Non-Distended, No Hepato-splenomegaly Extremities: No edema, Capillary Refill Less than 3 Seconds Skin: No rashes, No breakdown Neurological: Neuro grossly intact, Sensory exam intact to light touch and pain Microbiology Past 72 Hours 02/24/18 16:57 Urine Catheter - Dominguez Urine Culture - Preliminary GNR Poss Pseudomonas sp Laboratory Results 02/25/18 06:10: PT 15.5 H, INR 1.2 02/25/18 06:10: Haptoglobin Pending 02/25/18 06:10: WBC 8.4, RBC 3.06 L, Hgb 8.3 L, Hct 28.2 L, MCV 92.2, MCH 27.1, MCHC 29.4 L, RDW 18.1 H, RDW Differential 58.3 H, Plt Count 312, MPV 9.5, Immature Gran % (Auto) 0.500, Neut % (Auto) 80.9 H, Lymph % (Auto) 8.2 L, [place] % (Auto) 8.8, Eos % (Auto) 1.4, Baso % (Auto) 0.2, Absolute Neuts (auto) 6.8, Absolute Lymphs (auto) 0.69 L, Total Counted Not Reportable 02/25/18 06:10: Sodium 138, Potassium 3.7, Chloride 103, Carbon Dioxide 27.0, Anion Gap 8, BUN 13, Creatinine 0.88, Estim Creat Clear Calc 46.23, Est GFR (MDRD) Af Amer 80, Est GFR (MDRD) Non-Af 66, BUN/Creatinine Ratio 14.8, Glucose 92, Calcium 8.6 02/26/18 05:55: WBC Pending, RBC Pending, Hgb Pending, Hct Pending, MCV Pending, MCH Pending, MCHC Pending, RDW Pending, RDW Differential Pending, Plt Count Pending, Neut % (Auto) Pending, Absolute Neuts (auto) Pending, Total Counted Pending Current Medications Acetaminophen (Tylenol) 650 mg PO Q6H PRN PRN PRN Reason: Mild Pain (scale 0-3)/T>100.7 Bisacodyl (Dulcolax) 10 mg PO DAILY PRN PRN PRN Reason: Constipation Calamine/Phenol (Calmoseptine Ointment) 1 applic TOPICAL BID [facility]; Protocol Last Admin: 02/25/18 22:24 Dose: 1 applicatio Docusate Sodium (Colace) 100 mg PO DAILY [facility] Last Admin: 02/25/18 11:00 Dose: 100 mg Enoxaparin Sodium (Lovenox) 80 mg SC BID [facility] Last Admin: 02/25/18 22:23 Dose: 80 mg Fluoxetine HCl (Prozac) 20 mg PO DAILY [facility] Last Admin: 02/25/18 11:00 Dose: 20 mg Heparin Sodium (Beef Lung) () 50 units IV UD PRN PRN Reason: HEPARIN FLUSH Hydroxyzine Pamoate (Vistaril Pamoate Capsule) 25 mg PO QHS [facility] Last Admin: 02/25/18 22:22 Dose: 25 mg Levothyroxine Sodium (Synthroid) 100 mcg PO DAILY@0600 [facility] Last Admin: 02/26/18 06:09 Dose: 100 mcg Magnesium Hydroxide (Milk Of Magnesia) 30 ml PO DAILY PRN PRN PRN Reason: Constipation Nutritional Formula (Lactose Free) (Ensure Enlive) 120 ml PO 4X/DAY [facility] Last Admin: 02/25/18 22:24 Dose: 120 ml Ondansetron HCl (Zofran) 4 mg IV Q8H PRN PRN PRN Reason: NAUSEA Sodium Chloride () 10 ml IV UD PRN PRN Reason: VAD FLUSH Last Admin: 02/26/18 06:12 Dose: 10 ml Tramadol HCl (Ultram) 50 mg PO BID [facility] Last Admin: 02/25/18 22:22 Dose: 50 mg Warfarin Sodium (Coumadin (Pbkc)) 2.5 mg PO DAILY@1700 [facility] Last Admin: 02/25/18 17:42 Dose: 2.5 mg Zolpidem Tartrate (Ambien (Generic)) 5 mg PO QHS PRN PRN PRN Reason: INSOMNIA Last Admin: 02/24/18 23:24 Dose: 5 mg Medical Necessity - Tobacco Use Smoking Status: Former smoker Tobacco Use: Cigarettes Assessment/Plan All Active Problems (Last Reviewed 02/24/18 @ 20:24 by Murtaza Stanley MD) Cystitis (Acute) Encounter for adjustment or management of vascular access device (Acute) Bladder cancer (Acute) 1. Malfunctioning Dominguez catheter/Chronic cystitis/Stage 2 bladder cancer/Pressure ulcer - She presented from home because her dominguez was not working, she has a dominguez because of chronic incontinence - replaced in the ER and draining - She is not on operative candidate and has an open sore on her buttock which precludes her from chemo at the moment - Per Oncology office note, her chemo would be palliative in nature - Her cystitis is chronic and is on chronic amoxicillin for this and she is not symptomatic, currently with Pseudomonas, will not treat unless symptomatic, afebrile and no leukocytosis - Wound care consult - I had a long discussion with her about prognosis and advance care planning, she does not want a SNF for therapy, will plan for DC on palliative care and home PT if possible. She will follow up with her PCP and oncologist as an outpatient for coordination fo care 2. DVT/Normocytic anemia - This was found 2 weeks ago at [facility] before her bladder resection surgery - Surgery was canceled because she was a poor candidate - She is currently on coumadin and will follow INR - can Can switch to xarelto or eliquis as an outpatient, PCC has demonstrated effect as a reversal agent for both - H/H is 8.3, will monitor, no aggressive work-up at the moment and will transfuse as needed 3. Depression - stable - c/w prozac 4. Hypothyroidism - stable - c/w synthroid DVT: Therapeutic Lovenox until coumadin is therapeutic Code Visit Inpatient E&M: 54652 Subs Hosp L2
[2018-02-26 07:09] LABS: POSITIVE COUNT NO; POSITIVE DIFFERENTIAL NO; POSITIVE MORPHOLOGY NO
[2018-02-26 08:00] VITALS: BP 115/61; PULSE 81; RESP 18; TEMP 37; O2SAT 97
[2018-02-26 08:41] VITALS: PULSE 94
[2018-02-26 08:45] LABS: International Normalized Ratio 1.2; Prothrombin Time (Protime)PT. 15.2 SECONDS (11.7-14.9)
[2018-02-26 10:19] LABS: Haptoglobin 342 mg/dL (34-200)
[2018-02-26] MEDS: Menthol/Lanolin/Calamine/Znox 113 GM Tube 1 APPLIC TOPICAL ×2 (10:55→22:23)
[2018-02-26] MEDS: Docusate Sodium 100 MG Capsule PO (10:55)
[2018-02-26] MEDS: Enoxaparin 80 MG/0.8 ML Syringe SC ×2 (10:56→22:22)
[2018-02-26] MEDS: FLUoxetine 20 MG Capsule PO (10:56)
[2018-02-26] MEDS: traMADol 50 MG Tablet PO ×2 (10:56→22:22)
[2018-02-26] MEDS: Mirabegron 50 MG TAB.ER.24H PO (10:56)
[2018-02-26 14:00] VITALS: BP 114/58; PULSE 82; PULSE 88; RESP 18; TEMP 37.1; O2SAT 94
[2018-02-26 20:33] VITALS: BP 123/66; PULSE 90; RESP 16; TEMP 37.6; O2SAT 94
[2018-02-26] MEDS: hydrOXYzine PAM 25 MG Capsule PO (22:22)
[2018-02-27] VITALS (11 sets, daily range): BP systolic 100–115; BP diastolic 45–64; PULSE 67–93; RESP 16–18; TEMP 36.6–38; O2SAT 93–96
[2018-02-27] MEDS: 0.9% NaCl VAD Flush 10 ML IV ×6 (05:58→17:28)
[2018-02-27] MEDS: Levothyroxine 100 MCG Tablet PO (05:58)
[2018-02-27 06:13] LABS: Absolute Lymphocyte Count 0.67 X10^3/ul (0.83-4.51); Absolute Neutrophil Count 7.1 X10^3/uL (2.0-7.7); Basophil# 0.01 X10^3/uL; Basophil% 0.1 % (0-1); Eosinophil# 0.16 X10^3/uL; Eosinophils% 1.8 % (0-5); Hematocrit 26.1 % (37-47); Hemoglobin 7.8 g/dl (12.0-15.0); Lymphocyte # 0.67 X10^3/ul (4.0); Lymphocyte % 7.6 % (19-41); Mean Corp Hgb Conc 29.9 g/gl (32-36); Mean Corpuscular Hgb 26.7 pg (27.0-32.0); Mean Corpuscular Volume 89.4 fL (81-99); Mean Platelet Vol. 8.4 fl (6.2-12.0); Monocyte# 0.82 X10^3/uL; Monocyte% 9.3 % (0-10); Platelet Count 272 K/mm3 (150-450); RBC Distribution Width CV 18.3 % (11.6-14.6); RBC Distribution Width SD 59.8 fl (35.1-43.9); Red Blood Count 2.92 M/mm3 (4.2-5.4); White Blood Count 8.8 K/mm3 (4.4-11.0)
[2018-02-27 06:15] LABS: POSITIVE COUNT NO; POSITIVE DIFFERENTIAL NO; POSITIVE MORPHOLOGY NO
[2018-02-27 06:24] LABS: Anion Gap 9 (5-15); BUN 13 mg/dL (7-18); BUN/Creat Ratio 15.9 RATIO (10-20); Calcium,Total 8.4 mg/dL (8.5-10.1); Chloride 103 mmol/L (98-107); Creatinine, Serum 0.82 mg/dL (0.55-1.02); EST Glomerular Filtration Rate 72 mL/min (>60); Est Glom Filt Rate - Afr Amer 87 mL/min (>60); Estimated Creatinine Clearance 49.61 ml/min; Glucose 96 mg/dL (74-106); Potassium 3.6 mmol/L (3.5-5.1); Sodium Level 139 mmol/L (136-145)
[2018-02-27] MEDS: Menthol/Lanolin/Calamine/Znox 113 GM Tube 1 APPLIC TOPICAL ×2 (08:07→21:28)
[2018-02-27] MEDS: Mirabegron 50 MG TAB.ER.24H PO (08:08)
[2018-02-27] MEDS: FLUoxetine 20 MG Capsule PO (08:08)
[2018-02-27] MEDS: traMADol 50 MG Tablet PO ×2 (08:11→21:28)
--- NOTE | 2018-02-27 12:16 | CASEMGMT ---
Social Work Note [facility] at [facility] to see other patients. Per [facility] they will speak to pt about Palliative Care. SW faxed referral to [facility] for Palliative Care Referral. Kay Osorio SUPERVISOR LOCOMOTIVE, ALTERATION TAILOR APPRENTICE
[2018-02-27] MEDS: Rivaroxaban 15 MG Tablet PO (17:11)
--- NOTE | 2018-02-27 18:09 | PCM.PROGNOTE ---
Patient Problems: Active and Suspected Problems (Last Reviewed 02/24/18 @ 20:24 by Murtaza Stanley MD) Cystitis (Acute) Subjective: Patient was seen and examined today, I had extensive conversation with her and her family today as well as her oncologist and her urologist. I also talked with hospice/palliative care concerning the patient-they saw the patient today and she told them that she was going to decide whether to become a hospice patient, this afternoon, patient states that she has made up her mind that she will go into the hospice program. She does not want to be resuscitated if she has an arrest, I will change her CODE STATUS today. Patient is consented to take blood after talking with her , she had an adverse blood reaction many years ago according to the . Patient has iron deficiency anemia, I will also give her IV iron. Also discussed using Eliquis or Xarelto instead of her Lovenox, patient is in favor of this, patient is currently on Coumadin which is not used in patients with DVTs and concurrent cancer. I have stopped the patient's Coumadin today. Patient is due to be seen by the wound care nurse, I have not inspected the patient's pressure injury areas today-I will talk with wound care tomorrow morning, they did not have time to see the patient today as she requested they return at a later time to reexamine her. - Physical Exam General: Alert, Oriented x3, Cooperative, No apparent distress, Well developed HEENT: Atraumatic, PERRLA, EOMI, Normocephalic Oral: Moist Mucosa Neck: Supple, No Nuchal Rigidity, Trachea Midline, Thyroid Normal Size and Texture Lungs: Clear to auscultation, Normal air movement, No rhonchi, No wheeze, No rales Cardiovascular: Regular rate, Regular Rhythm, Normal S1, Normal S2, No murmurs, No Ectopic Activity, PMI Normal, No rub noted, No Gallop Abdomen: Bowel Sounds Present, Soft, Non Tender, Non-Distended, No hernias noted Extremities: No clubbing, No cyanosis, No edema, Capillary Refill Less than 3 Seconds Skin: No rashes, No breakdown Neurological: Cranial nerves II-XII grossly intact, Neuro grossly intact, Sensory exam intact to light touch and pain, Coordination normal Psych/Mental Status: Normal Affect, Appropriate, Alert and oriented to time, place, person, mood and affect Vital Signs Temp Pulse Resp BP Pulse Ox 98.4 F 80 18 110/58 L 95 02/27/18 14:00 02/27/18 14:00 02/27/18 14:00 02/27/18 14:00 02/27/18 14:00 Oxygen Delivery Method Room Air Weight: 77.4 kg Body Mass Index (BMI) 29.1 Intake and Output for Last 24 Hours 02/25/18 02/26/18 02/27/18 23:59 23:59 23:59 Intake Total 1890 / 1890 800 / 800 1600 / 1600 Output Total 1025 / 1025 1250 / 1250 1450 / 1450 Balance 865 / 865 -450 / -450 150 / 150 Microbiology Past 72 Hours 02/26/18 15:39 Stool Occult Blood (HEIKE) - Final Stool 02/24/18 16:57 Urine Culture - Final Urine Catheter - Romeo Pseudomonas aeroginosa Laboratory Tests Past 24 Hrs 02/27/18 02/27/18 02/27/18 06:00 06:00 17:10 WBC 8.8 RBC 2.92 L Hgb 7.8 L Hct 26.1 L MCV 89.4 MCH 26.7 L MCHC 29.9 L RDW 18.3 H RDW Differential 59.8 H Plt Count 272 MPV 8.4 Immature Gran % (Auto) 0.200 Neut % (Auto) 81.0 H Lymph % (Auto) 7.6 L [place] % (Auto) 9.3 Eos % (Auto) 1.8 Baso % (Auto) 0.1 Absolute Neuts (auto) 7.1 Absolute Lymphs (auto) 0.67 L Total Counted Not Reportable Sodium 139 Potassium 3.6 Chloride 103 Carbon Dioxide 27.0 Anion Gap 9 BUN 13 Creatinine 0.82 Estim Creat Clear Calc 49.61 Est GFR (MDRD) Af Amer 87 Est GFR (MDRD) Non-Af 72 BUN/Creatinine Ratio 15.9 Glucose 96 Calcium 8.4 L Blood Type Pending Antibody Screen Pending Crossmatch See Detail Medical Necessity - Tobacco Use Smoking Status: Former smoker Tobacco Use: Cigarettes Assessment/Plan All Active Problems (Last Reviewed 02/24/18 @ 20:24 by Murtaza Stanley MD) Cystitis (Acute) Encounter for adjustment or management of vascular access device (Acute) Bladder cancer (Acute) #1 acute bladder obstruction secondary to blocked Romeo catheter-patient's Romeo catheter appears to be draining adequately at this time #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 #3 bladder cancer-patient does not want to go undergo any chemotherapy, she is not a surgical candidate, patient is consented to be active with hospice at the time of her discharge #4 iron deficiency anemia-probably secondary to chronic blood loss from bladder cancer with a possible overlay of nutritional iron deficiency-patient will receive Venofer today, I will give her another dose tomorrow, she will receive 2 units of packed red blood cells and I will recheck her hemoglobin in the morning. 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 #7 hypokalemia-resolved Code Visit Inpatient E&M: 97900 Subs Hosp L2
[2018-02-27] MEDS: Acetaminophen 325 MG Tablet 650 MG PO (19:01)
[2018-02-27] MEDS: hydrOXYzine PAM 25 MG Capsule PO (21:28)
[2018-02-28 00:04] VITALS: BP 107/60; PULSE 62; RESP 16; TEMP 36.4; O2SAT 96
--- NOTE | 2018-02-28 03:00 | NURSING ---
Urine leaking on pad and sheets. Pt currently has Romeo intact and draining however chux pad continues to be saturated on hourly checks. Dr. Richard notified. Ok to d/c current Romeo and insert new catheter.
[2018-02-28 04:30] VITALS: BP 129/69; PULSE 77; RESP 14; TEMP 37.1; O2SAT 95
--- NOTE | 2018-02-28 04:54 | NURSING ---
Pt continues to be incontinent of urine despite having dominguez intact. Urine noted in dominguez tubing and in drainage bag.
[2018-02-28] MEDS: Levothyroxine 100 MCG Tablet PO (06:02)
--- NOTE | 2018-02-28 07:37 | NURSING ---
wound photo: buttocks
[2018-02-28 08:15] VITALS: BP 114/57; PULSE 74; RESP 18; TEMP 37.1; O2SAT 96
[2018-02-28] MEDS: Rivaroxaban 15 MG Tablet PO ×2 (08:27→17:56)
[2018-02-28] MEDS: traMADol 50 MG Tablet PO (08:28)
[2018-02-28] MEDS: Menthol/Lanolin/Calamine/Znox 113 GM Tube 1 APPLIC TOPICAL (08:28)
[2018-02-28] MEDS: FLUoxetine 20 MG Capsule PO (08:28)
[2018-02-28] MEDS: 0.9% NaCl VAD Flush 10 ML IV ×3 (09:27→19:21)
[2018-02-28 09:34] LABS: Hematocrit 31.4 % (37-47); Hemoglobin 9.9 g/dl (12.0-15.0)
--- NOTE | 2018-02-28 14:04 | CHAPLAIN ---
Type of Pastoral Visit _x__ Initial Visit ___ Follow-up Visit ___ On-call Visit ___ General Patient Visit ___ Spiritual Assessment ___ Family Conference ___ Bereavement ___ Rapid Response ___ Code Blue ___ Other (describe below) Pastoral Care Referral From _x__ Patient ___ Family ___ Nurse ___ Physician ___ Machine Carton Marker ___ Crimping Press Operator ___ Other (describe below) Sacrament/Intervention _x__ Active listening ___ Anointing ___ Rastafari ___ Bereavement ___ Communion _x__ Cherelle exploration ___ _x__ Life review _x__ Prayer ___ Reconciliation ___ Sacrament of Sick _x__ Supportive presence ___ Wedding ___ Other (describe below) Pastoral Comments talked about how patient receives calm and support; pt has a cherelle connection with [facility] in [place]; patient has concerns for a granddaughter
--- NOTE | 2018-02-28 14:17 | DCINST_ITS ---
- Discharge Diagnoses Current Active Problems: Current Active and Chronic Problems (Last Reviewed 02/24/18 @ 20:24 by Murtaza Stanley MD) Cystitis (Acute) You will use the following diet at home:: No restrictions Your food should be the consistency of: Regular Your liquids should be the consistency of: Regular/Thin Discharge Activity: Return to Normal Activity Weight Bearing Status: Weight bearing as tolerated Allergies/Adverse Reactions: Allergies Sulfa (Sulfonamide Antibiotics) Allergy (Intermediate, Verified 02/24/18 15:57) Rash adhesive tape Adverse Reaction (Mild, Verified 02/24/18 15:57) Rash bee venom protein (honey bee) Adverse Reaction (Verified 02/24/18 15:57) Swelling Medications to take at Discharge traMADol [Ultram] 50 mg PO BID 11/22/15 Levothyroxine [Synthroid] 100 mcg PO DAILY 05/14/16 Acetaminophen [Tylenol] 500 mg PO Q6H PRN PRN 02/23/18 Fluoxetine [Prozac] 20 mg PO DAILY 02/23/18 Docusate Sodium [Colace] 100 mg PO DAILY 02/24/18 Hydroxyzine HCl 1 - 2 tab PO DAILY 02/24/18 Acetaminophen [Tylenol Tablet] 650 mg PO Q6H PRN PRN tablet 02/28/18 Menthol/Lanolin/Calamine/Znox [Calmoseptine Ointment] 1 applic TOPICAL BID tube 02/28/18 Rivaroxaban [Xarelto] 15 mg PO BIDCM #40 tab 02/28/18 Rivaroxaban [Xarelto] 20 mg PO DAILY #30 tab 02/28/18 The following prescriptions were given: Rivaroxaban [Xarelto] 20 mg PO DAILY #30 tab Rivaroxaban [Xarelto] 15 mg PO BIDCM #40 tab Primary Care Physician: Yrn Allen MD [Primary Care Provider] - Please follow up with your Primary Care Physician in: in 1-2 weeks Test Results: Test results from this visit will be discussed in further detail at your follow- up appointment, if applicable. Please Follow Up With: [facility] When: as instructed
--- NOTE | 2018-02-28 15:15 | CASEMGMT ---
Social Work Note RANULFO met with [facility]. [facility] states pt signed with Hospice services. RANULFO updated RN BRANDON Dick. RANULFO faxed discharge instructions to [facility]. Kay Osorio GRADUATION COACH, TECHNICAL SERVICES REP
[2018-02-28 15:25] VITALS: BP 132/62; PULSE 79; RESP 16; TEMP 37.9; O2SAT 95
[2018-02-28 15:27] VITALS: RESP 16
[2018-02-28 18:15] VITALS: BP 120/60; PULSE 80; RESP 14; TEMP 37.6; O2SAT 95
--- NOTE | 2018-03-02 09:24 | DS.PCM_ITS ---
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-present on admission to the hospital #7 hypokalemia - Secondary Discharge Diagnosis Chronic Problems (Last Reviewed 02/24/18 @ 20:24 by Murtaza Stanley MD) Bladder carcinoma (Chronic) History of bladder cancer (Chronic) Hospital Course and Treatment Consultations 02/24/18 21:21 Consult: Onc/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 Patient had recently been diagnosed with DVT of the legs and is on Lovenox and Coumadin. Workup in the emergency room included CBC which showed a white blood cell count of 9.8, hemoglobin was 8.5, blood chemistry was unremarkable. INR was 1.3. Urinalysis was positive for greater than 100 WBCs, positive for nitrites, positive for leukocyte esterase, and positive for +4 bacteria, her urine was sent for culture. Emergency room physician felt that the patient had a urinary tract infection and the hospitalist service was called for admission. She was admitted to [place] [address], she had been on outpatient oral antibiotics and she was given ceftriaxone in the emergency room and this was continued briefly on the floor. Patient was then seen and evaluated by a second hospitalist who felt that the urine of the patient was colonized due to her chronic Romeo catheter usage. Patient did not appear to be toxic, she was afebrile, and she was not diaphoretic and her white blood cell count was normal. The antibiotics were discontinued, discussions were carried out with the patient concerning taking chemotherapy for her bladder cancer, patient and the patient's family decided that she was not going to have chemotherapy for her bladder cancer and she was seen in consultation by hospice who would be following up with the patient after discharge. Patient's Coumadin was stopped as it was felt her DVT was probably secondary to her bladder cancer, she agreed to take Xarelto instead and was sent home on this medication. Patient was given a blood transfusion and IV Venofer due to iron deficiency anemia which was felt to be secondary to her bladder cancer and probably nutritional in origin. On 02/28/18, patient was seen and examined: On examination she appeared in good health and spirits. Vital signs as documented. Skin warm and dry and without overt rashes. Neck without JVD. Lungs clear. Heart exam notable for regular rhythm, normal sounds and absence of murmurs, rubs or gallops. Abdomen unremarkable and without evidence of organomegaly, masses, or abdominal aortic enlargement. Extremities nonedematous. Neuro: Cranial nerves II through XII are grossly intact, no focal motor deficits were noted. Psych: Patient was alert and oriented x3, she did not appear to be depressed or anxious. On 02/28/18, patient was seen and examined and discharged home in stable condition. She was going to follow-up with hospice at her home. - Physical Exam Vital Signs Temp Pulse Resp BP Pulse Ox 99.6 F H 80 14 120/60 95 02/28/18 18:15 02/28/18 18:15 02/28/18 18:15 02/28/18 18:15 02/28/18 18:15 Oxygen Delivery Method Room Air Weight: 77.4 kg Body Mass Index (BMI) 29.1 Intake and Output for Last 24 Hours 02/28/18 03/01/18 03/02/18 23:59 23:59 23:59 Intake Total 3006.4 / 3006.4 Output Total 1700 / 1700 Balance 1306.4 / 1306.4 Discharge Activity: Return to Normal Activity Weight Bearing Status: Weight bearing as tolerated Home Medications: Medications to take at Discharge traMADol [Ultram] 50 mg PO BID 11/22/15 Levothyroxine [Synthroid] 100 mcg PO DAILY 05/14/16 Acetaminophen [Tylenol] 500 mg PO Q6H PRN PRN 02/23/18 Fluoxetine [Prozac] 20 mg PO DAILY 02/23/18 Docusate Sodium [Colace] 100 mg PO DAILY 02/24/18 Hydroxyzine HCl 1 - 2 tab PO DAILY 02/24/18 Acetaminophen [Tylenol Tablet] 650 mg PO Q6H PRN PRN tablet 02/28/18 Menthol/Lanolin/Calamine/Znox [Calmoseptine Ointment] 1 applic TOPICAL BID tube 02/28/18 Rivaroxaban [Xarelto] 15 mg PO BIDCM #40 tab 02/28/18 Rivaroxaban [Xarelto] 20 mg PO DAILY #30 tab 02/28/18 Following Prescrptions Were Given to Patient: Rivaroxaban [Xarelto] 20 mg PO DAILY #30 tab Rivaroxaban [Xarelto] 15 mg PO BIDCM #40 tab Primary Care Physician: Yrn Allen MD [Primary Care Provider] - Please follow up with your Primary Care Physician in: in 1-2 weeks Please Follow Up With: [facility] When: as instructed Disposition: Home with Hospice Minutes spent on discharge:: 32 Patient Condition:: Stable Medical Necessity - Tobacco Use Smoking Status: Former smoker Tobacco Use: Cigarettes Meaningful Use Info Meaningful Use Diagnoses (Choose all that apply): None applicable Code Visit Inpatient E&M: 42506 Disch Hosp
--- OUTSIDE RECORDS SUMMARY | 2018-04-21 16:24 | XMS RPT_ITS ---
:1940 Author Organization [place] Support Name Relationship Address Phone TESSA BARRY Unavailable [address] + [place], [place] [id number] [place], [place] [address]MURTAZA Jones Unavailable [address] + [place] [address] R Unavailable Unavailable Unavailable TESSA BARRY Unavailable [address] + [place], [place] [id number] [place], [place] [address]MURTAZA Jones Unavailable [address] + [place] [address] R Unavailable Unavailable Unavailable ETSSA BARRY Unavailable [address] + [place], [place] [id number] [place], [place] [address]MURTAZA Unavailable [address] + [place] [address] R Unavailable Unavailable Unavailable TESSA BARRY Unavailable [address] + [place], [place] [id number] [place], [place] [address]MURTAZA Jones Unavailable [address] + [place] [address] R Unavailable Unavailable Unavailable TESSA BARRY Unavailable [address] + [place], [place] [id number] [place], [place] [address]MURTAZA Jones Unavailable [address] + [place] [address] R Unavailable Unavailable Unavailable TESSA BARRY Unavailable [address] + [place] [address] MURTAZA HERNANDEZ Unavailable [address] + [place] [address] R Unavailable Unavailable Unavailable TESSA BARRY Unavailable [address] + [place] [address] MURTAZA HERNANDEZ Unavailable [address] + [place] [address] R Unavailable Unavailable Unavailable ASHA, TESSA Unavailable [address] + [place] [address] [facility], MURTAZA Unavailable [address] + [place] [address] R Unavailable Unavailable Unavailable ANN BARRYANNE Unavailable Unavailable + ASHA TESSA Unavailable Unavailable + ASHA TESSA Unavailable Unavailable + ASHA TESSA Unavailable Unavailable + ASHA, TESSA Unavailable Unavailable + ASHA, TESSA Unavailable Unavailable + ANN BARRYANNE Unavailable [address] + [place] [address] [facility], MURTAZA Unavailable [address] + [place] [address] R Unavailable Unavailable Unavailable KYRA BARRYE Unavailable [address] + [place] [address] [facility], MURTAZA Unavailable [address] + [place] [address] R Unavailable Unavailable Unavailable KYRA BARRYE Unavailable Unavailable + KYRA BARRYE Unavailable Unavailable + ANN BARRYANNE Unavailable [address] + [place] [address] [facility], MURTAZA Unavailable [address] + [place] [address] R Unavailable Unavailable Unavailable ANN BARRYANNE Unavailable Unavailable + ANN BARRYANNE Unavailable Unavailable + ANN BARRYANNE Unavailable [address] + [place], [place] [id number] [place] [address], MURTAZA Unavailable [address] + [place] [address] R Unavailable Unavailable Unavailable ANN BARRYANNE Unavailable Unavailable + ASHA TESSA Unavailable Unavailable + Asha, Tessa Unavailable Unavailable + Asha, Tessa Unavailable Unavailable + ASHA, TESSA Unavailable [address] + [place] [address] [facility], MURTAZA Unavailable [address] + [place] [address] R Unavailable Unavailable Unavailable ASHAKYRA ODOME Unavailable [address] + [place] [address] [facility], MURTAZA Unavailable [address] + [place] [address] R Unavailable Unavailable Unavailable ASHAKYRA ODOME Unavailable [address] + [place] [address] [facility], MURTAZA Unavailable [address] + [place] [address] R Unavailable Unavailable Unavailable ASHAKYRA ODOME Unavailable [address] + [place] [address] [facility], MURTAZA Unavailable [address] + [place] [address] R Unavailable Unavailable Unavailable KYRA BARRYE Unavailable [address] + [place] [address] [facility], MURTAZA Unavailable [address] + [place] [address] R Unavailable Unavailable Unavailable KYRA BARRYE Unavailable [address] + [place] [address] [facility], MURTAZA Unavailable [address] + [place] [address] R Unavailable Unavailable Unavailable ASHA, TESSA Unavailable [address] + [place] [address] [facility], MURTAZA Unavailable [address] + [place] [address] R Unavailable Unavailable Unavailable ASHAKYRA ODOME Unavailable [address] + [place] [address] [facility], MURTAZA Unavailable [address] + [place] [address] R Unavailable Unavailable Unavailable ASHAKYRA ODOME Unavailable [address] + [place] [address] MARY UMRTAZA Unavailable [address] + [place] [address] R Unavailable Unavailable Unavailable TESSA BARRY Unavailable [address] + [place] [address] MARY MURTAZA Unavailable [address] + [place] [address] R Unavailable Unavailable Unavailable Care Team Providers Name Role Phone Murtaza Mcgill Attending Unavailable Primay Care Physicia, No Primary Care Unavailable Clinton, Sean Referring Unavailable Clinton, Juan Mak Attending Unavailable Primay Care Physicia, No Primary Care Unavailable ClintonJuan Attending Unavailable Clinton, Sean Referring Unavailable Tiffany, Yrn Primary Care Unavailable Tiffany, Yrn Attending Unavailable Tiffany, Yrn Primary Care Unavailable Murtaza Mcgill Attending Unavailable Clinton, Sean Referring Unavailable Primay Care Physicia, No Primary Care Unavailable Murtaza Mcgill Consulting Unavailable ClintonJuan Attending Unavailable Primay Care Physicia, No Primary Care Unavailable Clinton, Juan Mak Attending Unavailable Clinton, Sean Referring Unavailable Primay Care Physicia, No Primary Care Unavailable Tiffany, Yrn Attending Unavailable Clinton, Juan Mak Attending Unavailable Clinton, Sean Referring Unavailable Tiffany, Yrn Primary Care Unavailable Murtaza Mcgill Attending Unavailable Clinton, Sean Referring Unavailable Primay Care Physicia, No Primary Care Unavailable Murtaza Mcgill Consulting Unavailable Clinton, Juan Mak Attending Unavailable Clinton, Sean Referring Unavailable Tiffany, Yrn Primary Care Unavailable Tiffany, Yrn Attending Unavailable Tiffany, Yrn Primary Care Unavailable Satish, Marta Attending Unavailable SONIA PRUETT Referring Unavailable Satish, Marta Attending Unavailable Robotshmuel, Marta Referring Unavailable Tiffany, Yrn Primary Care Unavailable Satish, Marta Attending Unavailable Murtaza Mcgill Attending Unavailable Clinton, Sean Referring Unavailable Primay Care Physicia, No Primary Care Unavailable Murtaza Mcgill Consulting Unavailable Tiffany, Ryn Primary Care Unavailable Murtaza Stanley Admitting Unavailable Celestino Helms Attending Unavailable Murtaza Stanley Admitting Unavailable Murtaza Stanley Attending Unavailable Tiffany, Yrn Primary Care Unavailable Murtaza Stanley Consulting Unavailable Agyepong, Murtaza Admitting Unavailable Katia Shaffers F Attending Unavailable Tiffany, Yrn Primary Care Unavailable Kotsonis, Boris F Consulting Unavailable Agyepong, Murtaza Admitting Unavailable Kotsonis, Boris F Attending Unavailable Tiffany, Yrn Primary Care Unavailable Kotsonis, Boris F Consulting Unavailable Agyepong, Murtaza Admitting Unavailable Tereletsky, Celestino Attending Unavailable Tiffany, Yrn Primary Care Unavailable Tereletsky, Ceelstino Consulting Unavailable Agyepong, Murtaza Admitting Unavailable Tereletsky, Celestino Attending Unavailable Tiffany, Yrn Primary Care Unavailable Tereletsky, Celestino Consulting Unavailable Wayne Aguilar Admitting Unavailable Wayne Aguilar Attending Unavailable No Doctor Assigned, Nodr Primary Care Unavailable Lizzie, Dr. Wayne Quinones Attending Unavailable ClintonJuan Referring Unavailable Tiffany, [facility] Primary Care Unavailable Lizzie, Dr. Wayne Quinones Attending Unavailable Tiffany, [facility] Primary Care Unavailable Lizzie, Dr. Wayne Quinones Attending Unavailable Lizzie, Dr. Wayne Quinones Referring Unavailable Tiffany, Yrn Ry Primary Care Unavailable Lizzie, Dr. Wayne Quinones Admitting Unavailable Samara Hallman Attending Unavailable Tiffany, [facility] Referring Unavailable Tiffany, [facility] Primary Care Unavailable Tiffany, [facility] Primary Care Unavailable Lizzie, Dr. Wayne Quinones Attending Unavailable Tiffany, [facility] Primary Care Unavailable Lizzie, Dr. Wayne Quinones Admitting Unavailable Lizzie, Dr. Wayne Quinones Attending Unavailable Lizzie, Dr. Wayne Quinones Referring Unavailable Tiffany, [facility] Primary Care Unavailable PROBLEMS PROBLEMS DATE TYPE CONDITION / CODE ATTENDING STATUS SOURCE 03/02/2018 Unknown T83.091A - Other Pavan Helms mechanical [facility] complication of Hospital indwelling urethral Repository catheter, initial encounter / T83.091A(ICD-10) 02/23/2018 Unknown Z45.2 - Encounter for Murtaza Mcgill Active [facility] adjustment and Community management of Hospital vascular access Repository device / Z45.2(ICD-10) 02/12/2018 Final Malignant neoplasm of Dr. Wayne Aguilar [facility] diagnosis bladder, unspecified [facility] (discharge) / C67.9(ICD-10) Repository 02/12/2018 Final Hypothyroidism, Dr. Wayne Aguilar [facility] diagnosis unspecified / [facility] (discharge) E03.9(ICD-10) Repository 02/12/2018 Final Personal history of Dr. Wayne Aguilar [facility] diagnosis nicotine dependence / [facility] (discharge) Z87.891(ICD-10) Repository 02/12/2018 Final Allergy status to Dr. Wayne Aguilar [facility] diagnosis sulfonamides status / [facility] (discharge) Z88.2(ICD-10) Repository 02/12/2018 Admitting Malignant neoplasm of Dr. Wayne Aguilar [facility] diagnosis bladder, unspecified [facility] / C67.9(ICD-10) Repository 02/12/2018 Final Acute embolism and Dr. Wayne Aguilar [facility] diagnosis thrombosis of left [facility] (discharge) femoral vein / Repository I82.412(ICD-10) 02/12/2018 Final Acute embolism and Dr. 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 Wayne Aguilar [facility] diagnosis palliative care / [facility] (discharge) Z51.5(ICD-10) Repository 02/12/2018 Final Personal history of Dr. Wayne Aguilar [facility] diagnosis antineoplastic [facility] (discharge) chemotherapy / Repository Z92.21(ICD-10) 02/12/2018 Final Personal history of Dr. Wayne Aguilar [facility] diagnosis irradiation / [facility] (discharge) Z92.3(ICD-10) Repository 02/12/2018 Final Spinal stenosis, site Dr. Wayne Aguilar [facility] diagnosis unspecified / [facility] (discharge) M48.00(ICD-10) Repository 02/12/[address] Wayne Aguilar [facility] diagnosis incontinence / [facility] (discharge) R32(ICD-10) Repository 01/26/2018 Unknown Z12.11 - Encounter Pavan Covarrubias for screening for [facility] malignant neoplasm of Hospital colon / Repository Z12.11(ICD-10) 01/26/2018 Unknown D12.2 - Benign Robotham, Active [facility] neoplasm of ascending [facility] colon / D12.2(ICD-10) Hospital Repository 01/26/2018 Unknown D12.4 - Benign Robotham, Active [facility] neoplasm of [facility] descending colon / Hospital D12.4(ICD-10) Repository 01/26/2018 Unknown K64.9 - Unspecified Robotham, Active [facility] hemorrhoids / [facility] K64.9(ICD-10) Hospital Repository 01/26/2018 Unknown K57.30 - Robotham, Active [facility] Diverticulosis of [facility] large intestine Hospital without perforation Repository or abscess without bleeding / K57.30(ICD-10) 01/06/2018 Final Constipation, Dr. Wayne Aguilar Active [place] diagnosis unspecified / [facility] (discharge) K59.00(ICD-10) Repository 01/06/2018 Final Essential (primary) Dr. Wayne Aguilar [facility] [place] diagnosis hypertension / [facility] (discharge) I10(ICD-10) Repository 01/06/2018 Final Hypo-osmolality and Dr. Wayne Aguilar Active [place] diagnosis hyponatremia / [facility] (discharge) E87.1(ICD-10) Repository 01/06/[address] Wayne Aguilar [facility] diagnosis disorder, single [facility] (discharge) episode, unspecified Repository / F32.9(ICD-10) 01/06/2018 Final Anemia, unspecified / Dr. Wayne Aguilar Active [place] diagnosis D64.9(ICD-10) [facility] (discharge) Repository 01/06/[address] Wayne Aguilar Active [place] diagnosis osteoarthritis, [facility] (discharge) unspecified site / Repository M19.90(ICD-10) 01/06/2018 Final Arthrodesis status / Dr. Wayne Aguilar Active [place] diagnosis Z98.1(ICD-10) [facility] (discharge) Repository 01/06/[address] Wayne Aguilar unspecified behavior [facility] bladder / Repository D49.4(ICD-10) 01/06/2018 Active [address] of Dr. Wayne Aguilar [facility] malignant neoplasm of [facility] bladder / Repository Z85.51(ICD-10) 01/05/[address] Wayne Aguilar [facility] diagnosis unspecified behavior [facility] bladder / Repository D49.4(ICD-10) 01/02/2018 Unknown I10 - Essential Yrn Allen Active [facility] (primary) [facility] hypertension / Hospital I10(ICD-10) Repository 12/15/2017 Unknown Z01.812 - Encounter Juan Alonzo Active [facility] for preprocedural [facility] examination / Repository Z01.812(ICD-10) 10/21/2017 Unknown E03.9 - Yrn Allen Active [facility] Hypothyroidism, Community unspecified / Hospital E03.9(ICD-10) Repository 09/16/2017 Unknown R82.99 - Other ClintonJuan rucker Active [facility] abnormal findings in [facility] urine / Hospital R82.99(ICD-10) Repository 04/19/2017 Unknown N32.89 - Other Yrn Allen Active [facility] specified disorders Community of bladder / Hospital N32.89(ICD-10) Repository 04/19/2017 Unknown N39.0 - Urinary tract ClintonJuan rucker Active [facility] infection, site not [facility] specified / Hospital N39.0(ICD-10) Repository PROCEDURES PROCEDURES DATE CODE DESCRIPTION STATUS SOURCE 01/05/2018 52906([facility] [address] Completed [place] CPT-4) Hospitals Repository 01/05/2018 49181([facility] [address] Completed [place] CPT-4) Hospitals Repository RESULTS RESULTS DISCHARGE SUMMARY Observed: 03/02/2018 Status: F Source: [place] 9:26 AM [facility] Medical Records Department [address] [place] [address] Discharge Summary 03/02/18 0917 MR#: [id number] Acct: [id number] Name: CLOVER HERNANDEZ Rep #: [id number] : 1940 77 From: Celestino Helms DO PCP: Yrn Allen MD Status: DIS IN Y [place] [id number] 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-present on admission to the hospital #7 hypokalemia - Secondary Discharge Diagnosis Chronic Problems (Last Reviewed 02/24/18 @ 20:24 by Murtaza Stanley MD) Bladder carcinoma (Chronic) History of bladder cancer (Chronic) Hospital Course and Treatment Consultations 02/24/18 21:21 Consult: 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 Patient had recently been diagnosed with DVT of the legs and is on Lovenox and Coumadin. Workup in the emergency room included CBC which showed a white blood cell count of 9.8, hemoglobin was 8.5, blood chemistry was unremarkable. INR was 1.3. Urinalysis was positive for greater than 100 WBCs, positive for nitrites, positive for leukocyte esterase, and positive for +4 bacteria, her urine was sent for culture. Emergency room physician felt that the patient had a urinary tract infection and the hospitalist service was called for admission. She was admitted to [place] [address], she had been on outpatient oral antibiotics and she was given ceftriaxone in the emergency room and this was continued briefly on the floor. Patient was then seen and evaluated by a second hospitalist who felt that the urine of the patient was colonized due to her chronic Romeo catheter usage. Patient did not appear to be toxic, she was afebrile, and she was not diaphoretic and her white blood cell count was normal. The antibiotics were discontinued, discussions were carried out with the patient concerning taking chemotherapy for her bladder cancer, patient and the patient's family decided that she was not going to have chemotherapy for her bladder cancer and she was seen in consultation by hospice who would be following up with the patient after discharge. Patient's Coumadin was stopped as it was felt her DVT was probably secondary to her bladder cancer, she agreed to take Xarelto instead and was sent home on this medication. Patient was given a blood transfusion and IV Venofer due to iron deficiency anemia which was felt to be secondary to her bladder cancer and probably nutritional in origin. On 02/28/18, patient was seen and examined: On examination she appeared in good health and spirits. Vital signs as documented. Skin warm and dry and without overt rashes. Neck without JVD. Lungs clear. Heart exam notable for regular rhythm, normal sounds and absence of murmurs, rubs or gallops. Abdomen unremarkable and without evidence of organomegaly, masses, or abdominal aortic enlargement. Extremities nonedematous. Neuro: Cranial nerves II through XII are grossly intact, no focal motor deficits were noted. Psych: Patient was alert and oriented x3, she did not appear to be depressed or anxious. On 02/28/18, patient was seen and examined and discharged home in stable condition. She was going to follow-up with hospice at her home. - Physical Exam Vital Signs Temp Pulse Resp BP Pulse Ox 99.6 F H 80 14 120/60 95 02/28/18 18:15 02/28/18 18:15 02/28/18 18:15 02/28/18 18:15 02/28/18 18:15 Oxygen Delivery Method Room Air Weight: 77.4 kg Body Mass Index (BMI) 29.1 Intake and Output for Last 24 Hours Intake Total 3006.4 / 3006.4 Output Total 1700 / 1700 Balance 1306.4 / 1306.4 Discharge Activity: Return to Normal Activity Weight Bearing Status: Weight bearing as tolerated Home Medications: Medications to take at Discharge traMADol [Ultram] 50 mg PO BID 11/22/15 Levothyroxine [Synthroid] 100 mcg PO DAILY 05/14/16 Acetaminophen [Tylenol] 500 mg PO Q6H PRN PRN 02/23/18 Fluoxetine [Prozac] 20 mg PO DAILY 02/23/18 Docusate Sodium [Colace] 100 mg PO DAILY 02/24/18 Hydroxyzine HCl 1 - 2 tab PO DAILY 02/24/18 Acetaminophen [Tylenol Tablet] 650 mg PO Q6H PRN PRN tablet 02/28/18 Menthol/Lanolin/Calamine/Znox [Calmoseptine Ointment] 1 applic TOPICAL BID tube 02/28/18 Rivaroxaban [Xarelto] 15 mg PO BIDCM #40 tab 02/28/18 Rivaroxaban [Xarelto] 20 mg PO DAILY #30 tab 02/28/18 Following Prescrptions Were Given to Patient: Rivaroxaban [Xarelto] 20 mg PO DAILY #30 tab Rivaroxaban [Xarelto] 15 mg PO BIDCM #40 tab Primary Care Physician: Yrn Allen MD [Primary Care Provider] - Please follow up with your Primary Care Physician in: in 1- 2 weeks Please Follow Up With: [facility] When: as instructed Disposition: Home with Hospice Minutes spent on discharge:: 32 Patient Condition:: Stable Medical Necessity - Tobacco Use Smoking Status: Former smoker Tobacco Use: Cigarettes Meaningful Use Info Meaningful Use Diagnoses (Choose all that apply): None applicable Code Visit Inpatient E AND M: 27597 Disch Hosp 03/02/18 0926 <Electronically signed by Celestino Helms DO> Date Celestino Helms DO Cosigner Signature (if applicable): Date CC: Celestino Helms DO; Yrn Allen MD Signed DISCHARGE INSTRUCTION Observed: 02/28/2018 Status: F Source: [place] 4:32 PM [facility] Medical Records Department [address] [place] [address] Instructions for Home/Discharge Instructions 02/28/18 1415 MR#: [id number] Acct: [id number] Name: CLOVER HERNANDEZ Rep #: [id number] : 1940 77 From: Celestino Helms DO PCP: Yrn Allen MD Status: ADM IN ADDENDUM by Celestino Helms DO on 02/28/18 at 1632 Take Cipro 250 mg twice a day as directed if temperature exceeds 100.5 within the next 7 days 02/28/18 1632 Date Celestino Helms DO cc: Yrn Allen MD * Signed - Discharge Diagnoses Current Active Problems: Current Active and Chronic Problems (Last Reviewed 02/24/18 @ 20:24 by Murtaza Stanley MD) Cystitis (Acute) You will use the following diet at home:: No restrictions Your food should be the consistency of: Regular Your liquids should be the consistency of: Regular/Thin Discharge Activity: Return to Normal Activity Weight Bearing Status: Weight bearing as tolerated Allergies/Adverse Reactions: Allergies Sulfa (Sulfonamide Antibiotics) Allergy (Intermediate, Verified 02/24/18 15:57) Rash adhesive tape Adverse Reaction (Mild, Verified 02/24/18 15:57) Rash bee venom protein (honey bee) Adverse Reaction (Verified 02/24/18 15:57) Swelling Medications to take at Discharge traMADol [Ultram] 50 mg PO BID 11/22/15 Levothyroxine [Synthroid] 100 mcg PO DAILY 05/14/16 Acetaminophen [Tylenol] 500 mg PO Q6H PRN PRN 02/23/18 Fluoxetine [Prozac] 20 mg PO DAILY 02/23/18 Docusate Sodium [Colace] 100 mg PO DAILY 02/24/18 Hydroxyzine HCl 1 - 2 tab PO DAILY 02/24/18 Acetaminophen [Tylenol Tablet] 650 mg PO Q6H PRN PRN tablet 02/28/18 Menthol/Lanolin/Calamine/Znox [Calmoseptine Ointment] 1 applic TOPICAL BID tube 02/28/18 Rivaroxaban [Xarelto] 15 mg PO BIDCM #40 tab 02/28/18 Rivaroxaban [Xarelto] 20 mg PO DAILY #30 tab 02/28/18 The following prescriptions were given: Rivaroxaban [Xarelto] 20 mg PO DAILY #30 tab Rivaroxaban [Xarelto] 15 mg PO BIDCM #40 tab Primary Care Physician: Yrn Allen MD [Primary Care Provider] - Please follow up with your Primary Care Physician in: in 1- 2 weeks Test Results: Test results from this visit will be discussed in further detail at your follow-up appointment, if applicable. Please Follow Up With: [facility] When: as instructed 02/28/18 1417 <Electronically signed by Celestino Helms DO> Date Celestino Helms DO CC: Yrn Allen MD HH, HEMOGLOBIN AND Collected: 02/28/2018 Status: F Source: [place] HEMATOCR[place] 9:25 AM [facility] [place] TYPE CODE TESTS RESULT OUT OF RANGE REFERENCE UNITS LAB L100.1300 12.0-15.0 g/dl Low HGB 9.9 LAB L100.1400 37-47 % Low HCT 31.4 Performed By: #### L100.0600 #### [facility] [address] [place], [address] TYPE AND SCREEN Collected: 02/27/2018 Status: F Source: [place] 5:10 PM [facility] Order Comment: CMV NEG? N Number of units to transfuse: 2 Is the EBL >/= 1000ml in adults or >/= 12ml/kg in children? Y Reason for Ordering Blood: Acute Are the blood/blood products to be transfused? Y Is the patient having/had surgery? N LINE DRAW Give When? When Ready Irradiated? N Leukodepleted? Y TYPE CODE TESTS RESULT OUT OF RANGE REFERENCE UNITS LAB B10.0800 O Normal BLOOD TYPE GEL POSITIVE LAB B100.4000 Normal Antibody NEGATIVE Screen Performed By: #### B101.7450 #### [facility] [address] [place], [address] RC Collected: 02/27/2018 Status: F Source: [place] 5:10 PM [facility] [place] TYPE CODE TESTS RESULT OUT OF REFERENCE UNITS RANGE LAB U100.0000 [id number] TRANSFUSED PRODUCT: T AND S with Crossmatch, Red Cells COUNT: 2 Performed By: #### U100.0000 #### [facility] - refer to report for specific site CBC W/DIFF, AUTOMATED Collected: 02/27/2018 Status: F Source: [place] 6:00 AM [facility] [place] TYPE CODE TESTS RESULT OUT OF RANGE REFERENCE UNITS LAB L100.1000 4.4-11.0 K/mm3 Normal WBC 8.8 LAB L100.1200 4.2-5.4 M/mm3 Low RBC 2.92 LAB L100.1300 12.0-15.0 g/dl Low HGB 7.8 LAB L100.1400 37-47 % Low HCT 26.1 LAB L100.1500 81-99 fL Normal MCV 89.4 LAB L100.1600 27.0-32.0 pg Low MCH 26.7 LAB L100.1700 32-36 g/gl Low MCHC 29.9 LAB L100.1810 11.6-14.6 % High RDW CV 18.3 LAB L100.1820 35.1-43.9 fl High RDW SD 59.8 LAB L100.1900 150-450 K/mm3 Normal PLT 272 LAB L100.2000 6.2-12.0 fl Normal MPV 8.4 LAB L100.2100 47-70 % High NEUT% 81.0 LAB L100.2200 19-41 % Low LY% 7.6 LAB L100.2300 0-10 % Normal MONO% 9.3 LAB L100.2400 0-5 % Normal EO% 1.8 LAB L100.2500 0-1 % Normal BASO% 0.1 LAB L100.2550 0.0-0.9 % Normal IM GRAN % 0.200 Result Comment: IG% - Immature Granulocytes (promyelocytes, myelocytes and metamyelocytes) > 1% indicates that a LEFT SHIFT is Present. LAB L100.2620 2.0-7.7 X10 3/uL Normal Absolute Neut 7.1 LAB L100.2720 0.83-4.51 X10 3/ul Low Absolute Lymph 0.67 Performed By: #### L100.0100 #### [facility] [address] [place], [address] BASIC METABOLIC Collected: 02/27/2018 Status: F Source: [place] PROFILE ([facility]) 6:00 AM [facility] [place] TYPE CODE TESTS RESULT OUT OF RANGE REFERENCE UNITS LAB L501.0100 74-106 mg/dL Normal GLU 96 Result Comment: Please note revised GLUCOSE reference range effective 2017. LAB L501.1000 7-18 mg/dL Normal BUN 13 LAB L501.1100 0.55-1.02 mg/dL Normal CREAT,SERUM 0.82 Result Comment: The validity of the calculated GFR AND GFRAA in patients over 70 years has not been determined. Clinical correlation is essential. LAB L501.1110 >60 mL/min Normal EST GFR 72 Result Comment: Non- GFR Calc LAB L501.1115 >60 mL/min Normal EST GFR - AA 87 Result Comment: GFR Calc LAB L501.1255 ml/min Normal Estimated CRCL 49.61 LAB L501.1300 10-20 RATIO Normal BUN/CRE 15.9 LAB L501.2200 8.5-10 mg/dL Low .1 CA 8.4 LAB L501.5300 136-14 mmol/L Normal 5 NA 139 LAB L501.5600 3.5-5. mmol/L Normal 1 K 3.6 LAB L501.5900 98-107 mmol/L Normal CL 103 LAB L501.6100 21.0-3 mmol/L Normal 2.0 CO2 27.0 LAB L501.6200 5-15 Normal GAP 9 Performed By: #### L500.2500 #### [facility] [address] [place], [address] Observed: 02/26/2018 Status: F Source: [place] STOOL OCCULT BLOOD 3:39 PM [facility] [place] STOB iFOB Occult Blood Negative Performed By: #### M100.7900 #### [facility] [address] [place], [address] PROTHROMBIN TIME W/INR Collected: 02/26/2018 Status: F Source: [place] 8:20 AM [facility] [place] TYPE CODE TESTS RESULT OUT OF RANGE REFERENCE UNITS LAB L300.4150 11.7-14.9 SECONDS High PROTIME 15.2 LAB L300.4200 Normal INR 1.2 Performed By: #### L300.3900 #### [facility] [address] [place], [address] CBC W/DIFF, AUTOMATED Collected: 02/26/2018 Status: F Source: [place] 5:55 AM [facility] [place] TYPE CODE TESTS RESULT OUT OF RANGE REFERENCE UNITS LAB L100.1000 4.4-11.0 K/mm3 Normal WBC 8.8 LAB L100.1200 4.2-5.4 M/mm3 Low RBC 2.95 LAB L100.1300 12.0-15.0 g/dl Low HGB 7.9 LAB L100.1400 37-47 % Low HCT 26.5 LAB L100.1500 81-99 fL Normal MCV 89.8 LAB L100.1600 27.0-32.0 pg Low MCH 26.8 LAB L100.1700 32-36 g/gl Low MCHC 29.8 LAB L100.1810 11.6-14.6 % High RDW CV 18.2 LAB L100.1820 35.1-43.9 fl High RDW SD 59.7 LAB L100.1900 150-450 K/mm3 Normal PLT 279 LAB L100.2000 6.2-12.0 fl Normal MPV 8.5 LAB L100.2100 47-70 % High NEUT% 79.3 LAB L100.2200 19-41 % Low LY% 9.4 LAB L100.2300 0-10 % Normal MONO% 9.1 LAB L100.2400 0-5 % Normal EO% 1.8 LAB L100.2500 0-1 % Normal BASO% 0.1 LAB L100.2550 0.0-0.9 % Normal IM GRAN % 0.300 Result Comment: IG% - Immature Granulocytes (promyelocytes, myelocytes and metamyelocytes) > 1% indicates that a LEFT SHIFT is Present. LAB L100.2620 2.0-7.7 X10 3/uL Normal Absolute Neut 7.0 LAB L100.2720 0.83-4.51 X10 3/ul Normal Absolute Lymph 0.83 Performed By: #### L100.0100 #### [facility] [address] [facility] [place], [address] CBC W/DIFF, AUTOMATED Collected: 02/25/2018 Status: F Source: [place] 6:10 AM [facility] [place] TYPE CODE TESTS RESULT OUT OF RANGE REFERENCE UNITS LAB L100.1000 4.4-11.0 K/mm3 Normal WBC 8.4 LAB L100.1200 4.2-5.4 M/mm3 Low RBC 3.06 LAB L100.1300 12.0-15.0 g/dl Low HGB 8.3 LAB L100.1400 37-47 % Low HCT 28.2 LAB L100.1500 81-99 fL Normal MCV 92.2 LAB L100.1600 27.0-32.0 pg Normal MCH 27.1 LAB L100.1700 32-36 g/gl Low MCHC 29.4 LAB L100.1810 11.6-14.6 % High RDW CV 18.1 LAB L100.1820 35.1-43.9 fl High RDW SD 58.3 LAB L100.1900 150-450 K/mm3 Normal PLT 312 LAB L100.2000 6.2-12.0 fl Normal MPV 9.5 LAB L100.2100 47-70 % High NEUT% 80.9 LAB L100.2200 19-41 % Low LY% 8.2 LAB L100.2300 0-10 % Normal MONO% 8.8 LAB L100.2400 0-5 % Normal EO% 1.4 LAB L100.2500 0-1 % Normal BASO% 0.2 LAB L100.2550 0.0-0.9 % Normal IM GRAN % 0.500 Result Comment: IG% - Immature Granulocytes (promyelocytes, myelocytes and metamyelocytes) > 1% indicates that a LEFT SHIFT is Present. LAB L100.2620 2.0-7.7 X10 3/uL Normal Absolute Neut 6.8 LAB L100.2720 0.83-4.51 X10 3/ul Low Absolute Lymph 0.69 Performed By: #### L100.0100 #### [facility] [address] [place], [place], [address] PROTHROMBIN TIME W/INR Collected: 02/25/2018 Status: F Source: [place] 6:10 AM [facility] [place] TYPE CODE TESTS RESULT OUT OF RANGE REFERENCE UNITS LAB L300.4150 11.7-14.9 SECONDS High PROTIME 15.5 LAB L300.4200 Normal INR 1.2 Performed By: #### L300.3900 #### [facility] [address] [place], [address] BASIC METABOLIC Collected: 02/25/2018 Status: F Source: [place] PROFILE ([place]) 6:10 AM [facility] [place] [facility] [place] TYPE CODE TESTS RESULT OUT OF RANGE REFERENCE UNITS LAB L501.0100 74-106 mg/dL Normal GLU 92 Result Comment: Please note revised GLUCOSE reference range effective 2017. LAB L501.1000 7-18 mg/dL Normal BUN 13 LAB L501.1100 0.55-1.02 mg/dL Normal CREAT,SERUM 0.88 Result Comment: The validity of the calculated GFR AND GFRAA in patients over 70 years has not been determined. Clinical correlation is essential. LAB L501.1110 >60 mL/min Normal EST GFR 66 Result Comment: Non- GFR Calc LAB L501.1115 >60 mL/min Normal EST GFR - AA 80 Result Comment: GFR Calc LAB L501.1255 ml/min Normal Estimated CRCL 46.23 LAB L501.1300 10-20 RATIO Normal BUN/CRE 14.8 LAB L501.2200 8.5-10 mg/dL Normal .1 CA 8.6 LAB L501.5300 136-14 mmol/L Normal 5 NA 138 LAB L501.5600 3.5-5. mmol/L Normal 1 K 3.7 LAB L501.5900 98-107 mmol/L Normal CL 103 LAB L501.6100 21.0-3 mmol/L Normal 2.0 CO2 27.0 LAB L501.6200 5-15 Normal GAP 8 Performed By: #### L500.2500 #### [facility] [address] [place], [address] HAPTOGLOBIN Collected: 02/25/2018 Status: F Source: [place] 6:10 AM [facility] [place] TYPE CODE TESTS RESULT OUT OF REFERENCE UNITS RANGE LAB L3100.1850 34-200 mg/dL High HAPTOGLOB 1628 342 Result Comment: Performed at: - [facility] [id number] Entrepreneurship Program Director: Titus Santamaria PhD, Phone: [phone] Performed By: #### L3100.1850 #### [facility] (refer to report for specific site) refer to report for address and phone number HISTORY AND PHYSICAL Observed: 02/24/2018 Status: F Source: [place] EXAM 8:39 PM [facility] [place] [facility] Medical Records Department [address] [place] [address] History and Physical 02/24/181927 MR#: [id number] Acct: [id number] Name: SOFICLOVER Jones Ingris Rep #: [id number] : 1940 77 From: Murtaza Stanley MD PCP: Yrn Allen MD Status: ADM IN Y Location: MS3 [id number] Problem List (1) Cystitis Status: Acute History of Present Illness Date of Admission: 02/24/18 Chief Complaint: romeo catheter not draining The patient is a 77 year old F with a significant history of bladder cancer status post chemotherapy and radiation and with an indwelling Romeo catheter who presented to the emergency department because her catheter was not draining. However her depends were wet. Patient talked to her urologist who sent patient to the emergency department for for possible change of her urinary catheter. At emergency department her Romeo catheter was changed and it was noticed to be draining appropriately. Her urinalysis was abnormal. Family reported that occasionally patient has chills. Patient was on outpatient cefdinir for a urinary tract infection. In regard to her bladder cancer patient was scheduled for surgery on the at [facility]. However while on the operating table it was found that her left leg was swollen. Also after patient had received anesthesia it was realized that her breathing pattern was not good. Because of the above-stated reasons and because of general deconditioning her bladder surgery was called off. Subsequent tests showed that patient had 2 blood clots in the left leg; one above the knee and one below the knee. She was started on Lovenox. About 3 days ago Coumadin was also started. At emergency department patient's INR was subtherapeutic at 1.3. Also to follow-up patient has low hemoglobin. In regard to her bladder cancer patient follows up with Dr. Mcgill Past Medical History Past Medical History (Chronic Problems): Chronic Problems (Last Reviewed 02/24/18 @ 20:24 by Murtaza Stanley MD) Bladder carcinoma (Chronic) History of bladder cancer (Chronic) Medical History: Medical History (Last Reviewed 02/24/18 @ 20:24 by Murtaza Stanley MD) Encounter for adjustment or management of vascular access device (Acute) Z45.2 Bladder carcinoma (Chronic) C67.9 Bladder cancer (Acute) C67.9 History of bladder cancer (Chronic) Z85.51 Hematuria, microscopic R31.29 History of hysterectomy Z98.890, Z90.710 Hypothyroidism E03.9 Incontinence R32 Recurrent UTI N39.0 UTI (urinary tract infection) N39.0 Urinary frequency R35.0 Hypertension I10 Allergies Sulfa (Sulfonamide Antibiotics) Allergy (Intermediate, Verified 02/24/18 15:57) Rash adhesive tape Adverse Reaction (Mild, Verified 02/24/18 15:57) Rash bee venom protein (honey bee) Adverse Reaction (Verified 02/24/18 15:57) Swelling Home Medications: Ambulatory Orders Medication Instructions Recorded traMADol [Ultram] 50 mg PO BID 11/22/15 Levothyroxine [Synthroid] 100 mcg PO DAILY 05/14/16 Acetaminophen [Tylenol Extra 500 mg PO Q6H PRN PRN 02/23/18 Surgical History: Surgical History (Last Reviewed 02/24/18 @ 20:24 by Murtaza Stanley MD) History of back surgery Z98.890 History of renal stent Z98.890 History of tonsillectomy Z98.890, Z90.89 S/P cystoscopy Z98.890 s/p port placement Lives: Spouse/ Significant Other Smoking Status: Former smoker Alcohol: None - *Family History Maternal Family History: Family History (Last Reviewed 02/24/18 @ 20:25 by Murtaza Stanley MD) Mother Hypertension Arthritis Father Metastatic cancer Review of Systems Constitutional: Reports: Chills HEENT: Denies: Head Aches, Sinus Congestion, Sinus Drainage Cardiovascular: Denies: Chest Pain, Palpitations Respiratory: Denies: Cough, Shortness of breath at rest, Sputum production Gastrointestinal: Denies: Abdominal Pain, Nausea, Vomiting Genitourinary: Reports: - - Romeo catheter was not draining; but her depends were getting wet. Musculoskeletal: Reports: Back Pain. Denies: Joint Pain, Joint Tenderness Skin: Reports: Wounds - At the gluteal region Neurological: Denies: Numbness, Tingling, Focal weakness Psychiatric: Denies: Anxiety, Depression, Homicidal Ideations, Suicidal Ideations Hematologic/ Lymphatic: Denies: Easy Bruising, Easy Bleeding VTE Information - Inpt Only VTE Present on Admission: Yes VTE Mechan Device Prophylaxis: None VTE Pharm Prophylaxis ordered?: No Reason prophylaxis not ordered:: Treatment Not Indicated - On treatment dose of Lovenox and Coumadin for DVT. Patient Problems: Active and Suspected Problems (Last Reviewed 02/24/18 @ 20:24 by Murtaza Stanley MD) Cystitis (Acute) - Physical Exam General: Alert, Oriented x3, Cooperative HEENT: Atraumatic, PERRLA, EOMI, Normocephalic Neck: Supple, No JVD, Negative Carotid Bruits Lungs: Clear to auscultation, Normal air movement, - - Port-A-Cath on the right side of chest. Cardiovascular: Regular rate, No murmurs Abdomen: Bowel Sounds Present, Soft, Non Tender Extremities: No edema, Capillary Refill Less than 3 Seconds, Edema - Bilateral legs with some bruises on beal of left leg. Skin: No rashes, Ulcer/ Wound - Pressure ulcer on cheek of left buttocks and skin projections on the right buttocks. Noted to have prolapsed rectum. Musculoskeletal: No Tenderness to Palpation of Joints or Extremities Neurological: Neuro grossly intact Psych/Mental Status: Normal Affect, Appropriate Vital Signs Temp Pulse Resp BP Pulse Ox 98.4 F 81 16 145/75 H 93 02/24/18 15:53 02/24/18 19:13 02/24/18 19:13 02/24/18 19:13 02/24/18 19:13 Oxygen Delivery Method Room Air Weight: 79.379 kg Body Mass Index (BMI) 30.0 Laboratory Tests Past 24 Hrs WBC 9.8 RBC 3.11 L Hgb 8.5 L WBC RBC Hgb Hct MCV MCH MCHC Assessment/Plan All Active Problems (Last Reviewed 02/24/18 @ 20:24 by Murtaza Stanley MD) Cystitis (Acute) Encounter for adjustment or management of vascular access device (Acute) Bladder cancer (Acute) The patient is a 77 year old F with a significant history of bladder cancer status post chemotherapy and radiation and with an indwelling Romeo catheter who presented to the emergency department because her catheter was not draining; and found to have persistent abnormal urinalysis;as well as anemia. Acute cystitis Patient was started on cefdinir before this hospitalization. Of note she had a Romeo catheter placed and this could be due to colonization. Will treat as acute cystitis. Urine cultures are pending. Patient received Ceftriaxone at the emergency department. Ceftriaxone continued. DVT In the last 2 weeks two blood clot was found in patient's left leg. Family reported that she has a previous history of DVT in the right leg. Of concern is that patient has a decreased hemoglobin. However to prevent PE will continue Coumadin with Lovenox bridge. We will continue same dose of Coumadin 2.5 mg without increasing the dosage. Consideration was made for heparin drip. However we will continue Lovenox and Coumadin for now. Bladder cancer Patient follows up with Dr. Alonzo and Dr. Mcgill Continue outpatient follow-up. We will continue mirabegron for bladder spasms. Normocytic Anemia RBCs are low. Review of old records show that her hemoglobin has dropped by about 3-4. Her last chemotherapy and radiation was about a year ago and is unlikely causing her symptoms. Occult stool; iron studies and haptoglobin ordered. LDH will be high anyway for patients with cancer. Consider discussing with Dr. Mcgill who is patient's oncologist Pressure ulcer on gluteal region Calmoseptine ordered Wound care consult. Back pain Patient and family reports a history of spinal stenosis with rods in her back. Ultram continued. Depression Prozac continued Hypothyroidism Synthroid continued. DVT prophylaxis Not indicated in the setting of patient being on Lovenox and Coumadin for DVT. Code Visit OBSV E AND M: [id number] Initial observation care L3 02/24/182038 <Electronically signed by Murtaza Stanley MD> Date Murtaza Stanley MD Cosigner Signature: Date (if applicable) CC: Murtaza Stanley MD; Yrn Allen MD Signed EMERGENCY DEPARTMENT Observed: 02/24/2018 Status: F Source: [place] 7:22 PM [facility] [place] [facility] Medical Records Department [address] [place] [address] Emergency Department Summary 02/24/181919 MR#: [id number] Acct: [id number] Name: CLOVER HERNANDEZ Rep #: [id number] : 1940 77 From: Annamaria Rajan DO PCP: Yrn Allen MD Status: REG ER - ER Visit Summary Date of Service: 02/24/18 Chief Complaint: [Romeo catheter problem] History of Present Illness: The patient is a 77 F [presents the emergency department complaint of Romeo catheter not draining. Patient has had a Romeo catheter in for about 2 weeks. Patient has a history of bladder cancer and recently was evaluated for possible surgery to remove her bladder and she was deemed not to be a good surgical candidate. Patient states that she had no urine in the Romeo bag this morning. Patient did state that her depends however was wet. Patient was advised by Dr. Alonzo to be evaluated in the emergency department. Patient denies any fevers. She has not had any vomiting. Patient denies any blood in her stool or black tarry stools. Patient currently on Coumadin for history of DVT and is also on Lovenox.] Physical Examination: [HEENT-PERRLA, EOMI. Cranial nerves II through XII grossly intact. TMs clear. Mucous membranes moist. No adenopathy. Cardiovascular-regular rate and rhythm without murmur or ectopy Lungs-clear to auscultation, chest wall stable without crepitus or subcu emphysema Abdomen-normoactive bowel sounds, soft, nontender, no rebound or rigidity, no peritoneal signs. Extremities-intact 4, normal range of motion, normal pulses, atraumatic] Test Results: [CBC with additional cannot 9.8, hemoglobin 8.5, hematocrit 28, platelets 289. Chemistries unremarkable. INR was 1.3. Bladder scan initially only showed 28 cc.] Urinalysis was positive for greater than 100 WBCs, positive for nitrites, positive for 500 leukocyte esterase, positive for +4 bacteria. Urine culture was sent. Emergency Department Course and Treatment: [New Romeo catheter was placed.] Treatment Plan: [Patient was ordered vancomycin and Rocephin] Disposition: [Admit] Impression: [UTI Anemia Coumadin coagulopathy] This note was generated with [employer] dictation software. It may contain incorrect words, spelling, and punctuation that were not noted in review of the chart prior to signing ED Disposition - Plan for ED Patient: Chief Complaint: Romeo C/O Referrals: Yrn Allen MD [Primary Care Provider] - What to do if you have Problems For any increased pain, shortness of breath, bleeding, nausea or vomiting, chest pain, or any unexpected problems, contact your Primary Care Provider. Call [facility] ([phone]) or report to the closest Emergency Room. Call 911 if necessary. 02/24/181921 <Electronically signed by Annamaria Rajan DO> Date Annamaria Rajan DO Cosigner Signature (If Indicated): Date CC: Yrn Allen MD PROTHROMBIN TIME W/INR Collected: 02/24/2018 Status: F Source: [place] 6:20 PM [facility] [place] TYPE CODE TESTS RESULT OUT OF RANGE REFERENCE UNITS LAB L300.4150 11.7-14.9 SECONDS High PROTIME 15.8 LAB L300.4200 Normal INR 1.3 Performed By: #### L300.3900 #### [facility] [address] [place], [address] CBC W/DIFF, AUTOMATED Collected: 02/24/2018 Status: F Source: [place] 5:35 PM [facility] [place] TYPE CODE TESTS RESULT OUT OF RANGE REFERENCE UNITS LAB L100.1000 4.4-11.0 K/mm3 Normal WBC 9.8 LAB L100.1200 4.2-5.4 M/mm3 Low RBC 3.11 LAB L100.1300 12.0-15.0 g/dl Low HGB 8.5 LAB L100.1400 37-47 % Low HCT 27.8 LAB L100.1500 81-99 fL Normal MCV 89.4 LAB L100.1600 27.0-32.0 pg Normal MCH 27.3 LAB L100.1700 32-36 g/gl Low MCHC 30.6 LAB L100.1810 11.6-14.6 % High RDW CV 18.2 LAB L100.1820 35.1-43.9 fl High RDW SD 59.5 LAB L100.1900 150-450 K/mm3 Normal PLT 289 LAB L100.2000 6.2-12.0 fl Normal MPV 8.7 LAB L100.2100 47-70 % High NEUT% 82.6 LAB L100.2200 19-41 % Low LY% 8.5 LAB L100.2300 0-10 % Normal MONO% 8.5 LAB L100.2400 0-5 % Normal EO% 0.1 LAB L100.2500 0-1 % Normal BASO% 0.1 LAB L100.2550 0.0-0.9 % Normal IM GRAN % 0.200 Result Comment: IG% - Immature Granulocytes (promyelocytes, myelocytes and metamyelocytes) > 1% indicates that a LEFT SHIFT is Present. LAB L100.2620 2.0-7.7 X10 3/uL High Absolute Neut 8.1 LAB L100.2720 0.83-4.51 X10 3/ul Normal Absolute Lymph 0.83 Performed By: #### L100.0100 #### [facility] [address] [place], [address] BASIC METABOLIC Collected: 02/24/2018 Status: F Source: [place] PROFILE ([facility]) 5:35 PM [facility] [place] TYPE CODE TESTS RESULT OUT OF RANGE REFERENCE UNITS LAB L501.0100 74-106 mg/dL High GLU 109 Result Comment: Fasting Glucose result from 100 to 125 mg/dL suggests IMPAIRED HOMEOSTASIS per A.D.A. criteria. Please note revised GLUCOSE reference range effective 2017. LAB L501.1000 7-18 mg/dL Normal BUN 14 LAB L501.1100 0.55-1.02 mg/dL Normal CREAT,SERUM 0.89 Result Comment: The validity of the calculated GFR AND GFRAA in patients over 70 years has not been determined. Clinical correlation is essential. LAB L501.1110 >60 mL/min Normal EST GFR 66 Result Comment: Non- GFR Calc LAB L501.1115 >60 mL/min Normal EST GFR - AA 79 Result Comment: GFR Calc LAB L501.1255 ml/min Normal Estimated CRCL 45.71 LAB L501.1300 10-20 RATIO Normal BUN/CRE 15.8 LAB L501.2200 8.5-10 mg/dL Low .1 CA 8.4 LAB L501.5300 136-14 mmol/L Normal 5 NA 137 LAB L501.5600 3.5-5. mmol/L Low 1 K 3.2 LAB L501.5900 98-107 mmol/L Normal CL 102 LAB L501.6100 21.0-3 mmol/L Normal 2.0 CO2 27.0 LAB L501.6200 5-15 Normal GAP 8 Performed By: #### L500.2500 #### [facility] [address] [place], [address] IRON+IRON BINDING Collected: 02/24/2018 Status: F Source: [place] CAPACITY 5:35 PM [facility] [place] TYPE CODE TESTS RESULT OUT OF REFERENCE UNITS RANGE LAB L503.6075 250-450 ug/dL Low TIBC 118 LAB L503.6150 50-170 ug/dL Low IRON 15 LAB L503.6250 15.0-55.0 % Low IRON SATURATION 12.7 Performed By: #### L503.6030 #### [facility] [address] [place], [address] FERRITIN Collected: 02/24/2018 Status: F Source: [place] 5:35 PM [facility] [place] TYPE CODE TESTS RESULT OUT OF REFERENCE UNITS RANGE LAB L503.6550 8-252 ng/mL High FERRITIN 652 Performed By: #### L503.6550 #### [facility] [address] [place], [address] URINALYSIS, COMPLETE Collected: 02/24/2018 Status: F Source: [place] 4:57 PM [facility] [place] Order Comment: Order Date: 02/24/18 Has pt arrived? Y COLOR OF URINE MAY AFFECT DIPSTICK RESULTS. How was Urine Obtained? PYTHON CONSULTANT TO SPECIFY TYPE CODE TESTS RESULT OUT OF RANGE REFERENCE UNITS LAB L400.3000 Yellow COLOR Normal Red LAB L400.3050 Clear Normal CLARITY Cloudy LAB L400.3200 Normal mg/dl Normal GLUCOSE, UR Normal LAB L400.3300 Negative mg/dL Normal BILIRUBIN URINE Negative LAB L400.3400 Negative mg/dl High 5 KETONE UR LAB L400.3465 1.002-1.030 Normal SP.GR. DIPSTX 1.010 LAB L400.3550 5.0 - 8.0 pH UR Normal 8.0 LAB L400.3600 Negative mg/dl High PROT DIPSTX 100 LAB L400.3700 Normal mg/dl High 1 UROBILI LAB L400.3750 Negative High NITRITE UR Positive LAB L400.3780 Negative /ul High OCCULT BLOOD-UR 250 LAB L400.3800 Negative /ul High LEUK ESTERASE 500 LAB L400.4050 0-5 /hpf WBC Normal >100 SEEN Result Comment: Microscopic field is filled. Other elements may be obscured. LAB L400.4100 0-5 /hpf Normal RBC-UA > 100 SEEN Result Comment: Microscopic field is filled. Other elements may be obscured. LAB L400.4150 5-10 /hpf SQUAM Normal EPI 25-50 SEEN LAB L400.4300 None Seen /hpf BACTERIA Normal 4+ LAB L400.4350 <or=2+ /hpf MUCUS, Normal URINE 0 SEEN LAB L400.4900 Normal AMORPHOUS 4+ Performed By: #### L400.0001 #### [facility] [address] [place], [place], [address] Observed: 02/24/2018 Status: F Source: [place] CULTURE, URINE 4:57 PM [facility] [place] Urine Culture ORGANISM 1: Pseudomonas aeroginosa [place] Count >100,000 Pseudomonas aeroginosa: REACTION Amikacin $ 4 S Cefepime $ 4 S Ceftazidime *NF 2 S Ciprofloxacin $ 1 S Gentamicin $ 4 S Imipenem *NF 2 S Levofloxacin $ 4 I Meropenem $ <=0.25 S Piperacillin/Tazobactam $$ <=4 S Tobramycin $ <=1 S (NF) indicates non-formulary drug at [facility]. Approval by Infectious Disease Specialist required before non-formulary drugs may be ordered and/or dispensed. Performed By: #### M100.0650 #### [facility] [address] [place], [place], [address] ONCOLOGY VISIT REPORT Observed: 02/23/2018 Status: F Source: [place] 4:03 PM [facility] [place] [facility] [place] [address] OFFICE VISIT Date of Service: 02/23/18 1343 MR#: [id number] Acct: [id number] Name: CLOVER HERNANDEZ Rep #: [id number] : 1940 From: Murtaza Mcgill MD Age/Sex: 77/F Location: D Status: Signed Subjective - Date of Service Date of Service:: 02/23/18 - Chief Complaint F/u for Bladder cancer. - History of Present Illness Ms. Clover Hernandez is a pleasant 77 year old woman who presented with frequency urinary tract infections. She underwent cystoscopy, which revealed a bladder mass. Subsequently, she underwent CT scan of the abdomen and pelvis on 04/24/2016, which again showed a bladder mass with no lymphadenopathy. CXR 05/14/16 was negative for metastatic disease. She underwent TURBT 05/21/16. Biopsy proved positive for invasive bladder cancer with squamous differentiation involving the muscularis propria, stage II (T2, N0, M0). The patient elected treatment with the goal of bladder preservation and began concomitant chemoradiation with cisplatin weekly on 06/16/16 . Cycle 5 cisplatin due 07/14/16 held d/t thrombocytopenia and cellulitis of the lower legs. Finished with cycle 5 on 08/11/16. CT a/p on 09/21/2015 showed contracted thick wall bladder. She had cystoscopy and bladder biopsy on 10/29/2016 which showed no malignant cells. She has had chronic UTI and has been taking antibiotics. She had recurrent disease, was referred to Urologic surgeon in [place] for radical cystectomy. She developed DVT, decubitus ulcers so surgery was cancelled and comes in follow up. - Past Medical/Social History Past Medical History Past Medical History: Hypertension Other Past Medical History: HYPOTHYROIDISM FREQUENCY OF URINATION HEMATURIA, MICROSCOPIC INCONTINENCE, UNSPECIFIED UTI Cancer: Bladder cancer Past Surgical History Surgical: Back,Hysterectomy,Tonsillectomy Other Surgical History: stent placed left kidney 11/11 Family History Paternal Past Medical History: Unknown Paternal History of Cancer Metastatic cancer Maternal Past Medical History: Arthritis,Hypertension Social History Social History: No changes Smoking Status Former smoker Review of Systems Constitutional:: Reports: Weakness, Fatigue. Denies: Fever, Sweats Cardiovascular:: Denies: Chest pain, Palpitations, Dyspnea on exertion, Orthopnea, PND, Shortness of breath Respiratory: Denies: Cough, Hemoptysis, Shortness of Breath, Wheezing Musculoskeletal:: Reports: Joint stiffness, - - Deformed lower extremities Skin: Reports: Wounds - cheek of L buttock. Vital Signs Height 5 ft 5 in Weight: 85.275 kg Weight in Pounds 188.0 lbs Pulse Ox 95 - Physical Exam General: Alert, Oriented x3, No apparent distress, - - cachectic HEENT: Atraumatic, PERRLA, EOMI, Normocephalic Oropharynx:: Dry mucosa Neck:: Supple, Trachea midline. Negative for: JVD, bilateral Cardiac:: Regular rate, Regular rhythm, Normal S1, Normal S2. Negative for: Murmur Lungs: Clear to auscultation, Excusion symmetrical. Negative for: Rhonchi, Wheezes Abdomen:: - - + foleys catheter, + decubitus ulcers buttocks. Extremities:: Edema - lower legs. Lymphatics:: Negative for: Cervical lymphadenopathy, Supraclavicular lymphadenopathy, Axillary lymphadenopathy Assessment and Plan Bladder cancer stage II S/P chemoradiation therapy for bladder preservation. Recurrent disease, poor surgical candidate. Decubitus ulcer, Poor functional status. She has been told about palliative chemotherapy. Discussed therapy with chemotherapy, risks, benefits and side effects. Plan is to obtain records from Surgeon Dr. Aguilar. RTC 1 wk. Medications: Prescriptions This Visit Medication Instructions Recorded Acetaminophen [Tylenol Extra 500 mg PO Q6H PRN PRN 02/23/18 Strength] Cefdinir [Omnicef [equiv]] 300 mg PO Q12H 02/23/18 Primary Care Provider: No Primary Care Phys Referring Provider: Juan Alonzo - Problem List (1) Bladder carcinoma Status: Chronic Code Visit Office Visits / Consults: [id number] OV L4 Est 02/23/18 1603 <Electronically signed by Murtaza Mcgill MD> Date Murtaza Mcgill MD Cosigner Signature: Date (if applicable) CC: URINALYSIS Collected: 02/12/2018 Status: F Source: [place] 6:38 PM HOSPITALS REPOSITORY TYPE CODE TESTS RESULT OUT OF RANGE REFERENCE UNITS LAB COLU(LOIN STRAW,YELLOW C) COLOR YELLOW LAB APPRU(KRISTAN CLEAR NC) APPEARANCE HAZY LAB SPGRU(KRISTAN 1.005 - 1.035 NC) SPECIFIC GRAVITY 1.012 LAB DANELLE(LOINC 5.0 - 8.0 ) pH 8.0 LAB PROTU(KRISTAN NEGATIVE mg/dL NC) PROTEIN Abnormal >=500 (3+) LAB GLUCU(KRISTAN NEGATIVE mg/dL NC) GLUCOSE NEGATIVE LAB BLDU(LOIN NEGATIVE C) BLOOD Abnormal SMALL (1+) LAB KETU(LOIN NEGATIVE mg/dL C) KETONES NEGATIVE LAB BILIU(KRISTAN NEGATIVE NC) BILIRUBIN NEGATIVE LAB UROU2(KRISTAN 0.0 - 1.9 mg/dL NC) UROBILINOGEN <2.0 LAB NITRU(KRISTAN NEGATIVE NC) NITRITE NEGATIVE LAB LEUKU(KRISTAN NEGATIVE NC) LEUKOCYTE Abnormal ESTERASE SMALL (1+) Performed By: #### UA #### [facility] [address] [place] [id number] UA MICROSCOPIC Collected: 02/12/2018 Status: F Source: [place] 6:38 [facility] REPOSITORY TYPE CODE TESTS RESULT OUT OF RANGE REFERENCE UNITS LAB WBCUR(LOIN 0-5 /HPF C) Abnormal WBC 10 LAB RBCUR(LOIN 0-5 /HPF C) Abnormal RBC 8 LAB EPSQE(LOIN /HPF C) SQUAMOUS 2 EPITH. CELLS LAB BACUR(LOIN /HPF C) Abnormal BACTERIA 1+ Performed By: #### UAMIC #### [facility] [address] [place] [id number] URINE Observed: 02/12/2018 Status: F Source: [place] CULTURE,BACTERIAL 6:38 [facility] REPOSITORY PATIENT: CLOVER HERNANDEZ LOCATION: [address] [facility] BILL#: [id number] : 40 AGE: SEX: F ORDERED BY: YANELY RAMSEY SOURCE: URINE COLLECTED: 02/12/18 18:38 ANTIBIOTICS AT [facility].: RECEIVED : 02/12/18 22:04 SITE: [facility] R E S U L T S URINE CULTURE,BACTERIAL FINAL 02/14/18 11:11 ISOLATE1 : Pseudomonas aeruginosa >100,000 CFU/ML Organism Ps aerug Antibiotic BP INTRP Aztreonam S Ceftazidime S Ciprofloxacin I Cefepime S Gentamicin I Levofloxacin I Piperc/Tazobact S Tobramycin S S=SUSCEPTIBLE I=INTERMEDIATE R=RESISTANT SDD=SUSCEPTIBLE DOSE DEPENDENT NS=NONSUSCEPTIBLE X=REPORTED IN ERROR Performed By: #### URINC #### [facility] [address] [place] [address] CONSULT-PALLIATIVE CARE Observed: 02/12/2018 Status: COMPLETED Source: [place] 1:58 PM HOSPITALS REPOSITORY Service: Service: Palliative Care Consult: Reason: symptom control and goals of care History of Present Illness: HPI: 77 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 Decision was made to reschedule the case after a more thorough workup for LE edema. DVT ultrasound revealed acute left fem/pop vein DVT, right chronic DVT. ECHO with EF 62%. Patient was offered IVC filter vs therapeutic lovenox. Patient was started on therapeutic lovenox afternoon of 02/10. The patient has decided to forgo surgery and is opting for palliative chemotherapy. today the patient is awake in bed with her and daughter at bedside. We discussed the role of palliative care being that of symptom support as well as overall goals regarding treatment and quality of life. The patient plans on starting palliative chemotherapy in the near future closer to [place] where she lives currently. The patient understands that the chemo will likely be only palliative in nature. From a symptom standpoint the patients main issues are bladder incontinence and back pain (from spinal stenosis for many years). The patient is currently taking 50mg of tramadol twice a day which helps but she has periods of pain in between. The pain will go up to around a 6-8/10. I discussed that the patient may take tramadol 50mg q6 hours instead of q12. the patient would like to follow up with palliative care in the out patient setting and I will have the palliative nurses set up a follow up visit for her. At this time no other changes are recommended. We will continue to follow the patient in the out patient setting. Review Family/Social History and ROS: Review Family/Social History and ROS: No family/social history has been recorded on this patient. No ROS has been documented on this patient. I have reviewed the family and social history and review of systems from the History and Physical. Family History: Family History: reviewed and not pertinent to presenting problem Social History: Social History: denies smoking, alcohol and drug use Social History: lives with her in [place] Constitutional: NEGATIVE: Fever, Chills, Anorexia, Weight Loss, Malaise Eyes: NEGATIVE: Blurry Vision, Drainage, Diploplia, Redness, Vision Loss/ Change ENMT: NEGATIVE: Nasal Discharge, Nasal Congestion, Ear Pain, Mouth Pain, Throat Pain Respiratory: NEGATIVE: Dry Cough, Productive Cough, Hemoptysis, Wheezing, Shortness of Breath Cardiac: NEGATIVE: Chest Pain, Dyspnea on Exertion, Orthopnea, Palpitations, Syncope Gastrointestinal: NEGATIVE: Nausea, Vomiting, Diarrhea, Constipation, Abdominal Pain Genitourinary: POSITIVE: Dysuria, Frequency; NEGATIVE: Discharge, Flank Pain, Hematuria Musculoskeletal: POSITIVE: Pain; NEGATIVE: Decreased ROM, Swelling, Stiffness, Weakness Neurological: NEGATIVE: Dizziness, Confusion, Headache, Seizures, Syncope Psychiatric: NEGATIVE: Mood Changes, Anxiety, Hallucinations, Sleep Changes, Suicidal Ideas Skin: NEGATIVE: Mass, Pain, Pruritus, Rash, Ulcer All Other Systems: All other systems reviewed and are negative Allergies: sulfamethoxazole: Other, Itching sulfa drugs: Unknown Tape - Adhesive, Bandaids, Paper: Unknown Objective: Objective Information: T PRBPSpO2 [id number]/5193% Date/Time02/12 7: 7: 7: 7: 7:51 Range(36.4C - 37.4C ) (77 - 89 ) (18 - 18 ) (104 - 106 )/ (51 - 53 ) (93% - 94% ) Highest temp of 37.4 C was recorded at 02/12 7:51 Physical Exam: Constitutional: oriented x3, no distress, alert and cooperative Eyes: PERRL, EOMI, clear sclera ENMT: mucous membranes moist, no apparent injury, no lesions seen Head/Neck: no apparent injury Respiratory/Thorax: good chest expansion, thorax symmetric Cardiovascular: Regular, rate and rhythm Gastrointestinal: Nondistended Musculoskeletal: ROM intact Extremities: normal extremities, no cyanosis edema, contusions or wounds, no clubbing Neurological: alert and oriented x3 Psychological: Appropriate mood and behavior Skin: Warm and dry, no lesions, no rashes Assessment: 77 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 Decision was made to reschedule the case after a more thorough workup for LE edema. DVT ultrasound revealed acute left fem/pop vein DVT, right chronic DVT. ECHO with EF 62%. Patient was offered IVC filter vs therapeutic lovenox. Patient was started on therapeutic lovenox afternoon of 02/10. The patient has decided to forgo surgery and is opting for palliative chemotherapy. today the patient is awake in bed with her and daughter at bedside. We discussed the role of palliative care being that of symptom support as well as overall goals regarding treatment and quality of life. The patient plans on starting palliative chemotherapy in the near future closer to [place] where she lives currently. The patient understands that the chemo will likely be only palliative in nature. From a symptom standpoint the patients main issues are bladder incontinence and back pain (from spinal stenosis for many years). The patient is currently taking 50mg of tramadol twice a day which helps but she has periods of pain in between. The pain will go up to around a 6-8/10. I discussed that the patient may take tramadol 50mg q6 hours instead of q12. the patient would like to follow up with palliative care in the out patient setting and I will have the palliative nurses set up a follow up visit for her. At this time no other changes are recommended. We will continue to follow the patient in the out patient setting. Recommendations #neoplasm related pain and spinal stenosis -Continue tramadol 50mg tabs but increase to q6 hours as needed OARRS reviewed and is consistent with current prescriptions and patient's report of medication use. Information about my safer prescribing practices given to patient. #goals of care -The patient realizes that the treatment is likely only palliative in nature -She would like to follow with palliative care in the out patient setting. i will set up an appointment with her. -The patient has a good support system at home with her and daughter. Signature/Cosignature/Attestation: Comments/ Additional Findings Above d/w primary team. Thank you for inviting us to participate in the care of this patient. Please page with any questions. We will continue to follow. Time spent: 110 minutes with >50% spent in counseling/educating/supporting the patient/family as well as coordinating plan of care and medication regimen. 32 minutes was spent on advanced care planning. Electronic Signatures: Caleb Rey) (Signed 12-Feb-2018 14:20) Authored: Service, History of Present Illness, Review Family/Social History and ROS, Allergies, Objective, Assessment/Recommendations, Signature/Cosignature/Attestation Last Updated: 12-Feb-2018 14:20 by Caleb Rey) DISCHARGE SUMMARY Observed: 02/12/2018 Status: COMPLETED Source: [place] 10:30 AM HOSPITALS REPOSITORY Send Summary: Discharge Summary Providers: Provider RoleProvider Name Wayne Chavez ConsultingOncology Consult ConsultingSiDashawn narayanan Scott Andrew AttendingKim, Simon Note Recipients: Yrn Allen MD - [id number] [] Wayne Aguilar MD Discharge: Summary: Admission Date: .09-Feb-2018 08:53:00 Discharge Date: 12-Feb-2018 Attending Physician at Discharge: Wayne Aguilar Admission Reason: Cystectomy(1) Final Discharge Diagnoses: Acute DVT Chronic DVT High Grade Muscle Invasive Bladder Cancer Procedures: None Condition at Discharge: Satisfactory Disposition at Discharge: .Home Vital Signs: T PRBPSpO2 [id number]/5193% Date/Time02/12 7: 7: 7: 7: 7:51 Range(36.4C - 37.4C ) (73 - 89 ) (18 - 18 ) (104 - 108 )/ (51 - 60 ) (93% - 99% ) Highest temp of 37.4 C was recorded at 02/12 7:51 Physical Exam: Constitutional: Lying comfortably in bed, in no acute distress, alert and cooperative Eyes: EOMI, sclerae anicteric ENMT: Mucous membranes moist Head/Neck: Neck supple, no apparent injury Respiratory/Thorax: Breathing comfortably on room air, symmetric chest expansion Cardiovascular: Regular rate and rhythm Gastrointestinal: Abdomen soft, non-tender, non-distended. No rebound tenderness/guarding Genitourinary: Voiding. Musculoskeletal: Moving all extremities. Extremities: Extremities warm and well perfused. BL LE edema. Neurological: Awake/alert/oriented x3. No gross neurological deficits. Psychological: Appropriate mood and behavior Skin: Warm and dry, no lesions, no rashes Hospital Course: Ms. 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 Patient was admitted for a radical cystectomy with Dr. Aguilar. Surgery was cancelled due to acute bilateral LE edema. DVT ultrasound revealed acute left fem/pop vein DVT, right chronic DVT. ECHO with EF 62%. Patient was offered IVC filter vs therapeutic lovenox. Patient was started on therapeutic lovenox afternoon of 02/10. She decided that she would no longer like to pursue surgery and will proceed with palliative options. Medical oncology and palliative care teams were consulted. At discharge, she is tolerating a diet, ambulating, pain is well controlled. She will need close follow up with her PCP and home oncologist. She is discharged on therapeutic lovenox (1mg/kg BID). She was seen by palliative care and will also be following up with them as an outpatient. Discharge Information: and Continuing Care: Discharge Instructions: Activity: activity as tolerated. May shower.. Nutrition/Diet: regular Follow Up Appointments: Follow-Up Appointment 01: Physician/Dept/Service: Medical Oncology Reason for Referral: Discuss palliative chemotherapy vs immunotherapy options Call to Schedule in: 2-3 days Follow-Up Appointment 02: Physician/Dept/Service: Primary Care Provider Reason for Referral: Acute DVT on therapeutic lovenox Call to Schedule in: 2-3 days Discharge Medications: Home Medication Levothyroxin 100mcg oral - 1 oral once a day Multi vitamin - 0 once a day Myrbetriq 50 MG oral - 1 oral once a day Potassium Gluconate 99mg oral - 1 oral once a day Tramadol 50 MG (expressed as tramadol hydrochloride) oral - 1 oral enoxaparin 80 mg/0.8 mL injectable solution - 80 milligram(s) subcutaneously 2 times a day Calcium - 0 oral once a day colace 100mg oral - 0 oral prn PRN Medication Lab Results - Pending: None Radiology Results - Pending: None Electronic Signatures: Wayne Aguilar) (Signed 13-Feb-2018 06:10) Authored: Ongoing Care, Signature/Cosignature/Attestation Co-Signer: Send Summary, Summary Content, Ongoing Care, Signature/Cosignature/Attestation Yanely Muller ( (Resident)) (Signed 12-Feb-2018 15:32) Entered: Summary Content, Ongoing Care Authored: Send Summary, Summary Content, Ongoing Care, Signature/Cosignature/Attestation Angie Mac ( (Resident)) (Signed 12-Feb-2018 10:34) Authored: Send Summary, Summary Content, Ongoing Care, Signature/Cosignature/Attestation Last Updated: 13-Feb-2018 06:10 by Wayne Aguilar) References: 1. Data Referenced From Consult-Oncology 02/11/2018 11:06 AM DISCHARGE PROFILE2 Observed: 02/12/2018 Status: UNK Source: [facility] 10:19 AM HOSPITALS REPOSITORY Discharge Orders: Anticipated Discharge Date: Anticipated Discharge [id number] Problem List: Additional Dx: Constipation: Catalog Name: Constipation, unspecified Bladder cancer: Catalog Name: Malignant neoplasm of bladder, unspecified Significant Events: former smoker: Past Medical History tonsillectomy: Past Medical History urinary incontinence: Past Medical History peripheral edema: Past Medical History chronic back pain: Past Medical History HTN: Past Medical History hypothyroid: Past Medical History bladder mass: Past Medical History Hospital Providers: Provider RoleProvider Name Wayne Merritt ConsultingOncology Consult ConsultingSidagam, Dashawn PrimaryHannan, Yrn Ry Activity: activity as tolerated. May shower. Diet: Dietregular Call Provider If (Homegoing Patients): Breathing faster than normal. Breathing harder than normal or having retractions. Fever of 100.4 F (38 C) or higher. Temperature is greater than 102 degrees. Chills. Drinking less than normal. Not being able to go 4-6 hours between albuterol treatments. Urinating less than normal, over 1 day. Urinating less than 4 times per day. Acting very sleepy and difficult to awaken. Vomiting (throwing up) and not able to eat or drink for 12 hours. 3 or more loose, watery bowel movements in 24 hours (diarrhea). Any new concerning symptoms. Hospital Course (Home Care/Gold Form): Hospital Course: Hospital Course: include significant abnormal lab values Ms. 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 Patient was admitted for a radical cystectomy with Dr. Aguilar. Surgery was cancelled due to acute bilateral LE edema. DVT ultrasound revealed acute left fem/pop vein DVT, right chronic DVT. ECHO with EF 62%. Patient was offered IVC filter vs therapeutic lovenox. Patient was started on therapeutic lovenox afternoon of 02/10. She decided that she would no longer like to pursue surgery and will proceed with palliative options. Medical oncology and palliative care teams were consulted. At discharge, she is tolerating a diet, ambulating, pain is well controlled. She will need close follow up with her PCP and home oncologist. She is discharged on therapeutic lovenox (1mg/kg BID). Provider FINAL REVIEW of Orders: Final Review: Final Review of Medication Reconciliation and Orders Completedby Physician Reviewing ProviderAngie Mac MD (Resident) at 12-Feb-2018 10:29:33 Appointments: Follow-Up Appointment 01: Physician/Dept/ServiceMedical Oncology Reason for ReferralDiscuss palliative chemotherapy vs immunotherapy options Call to Schedule in2-3 days Follow-Up Appointment 02: Physician/Dept/ServicePrimary Care Provider Reason for ReferralAcute DVT on therapeutic lovenox Call to Schedule in2-3 days Electronic Signatures: Wayne Aguilar) (Signed 13-Feb-2018 06:10) Co-Signer: Discharge Orders, Hospital Course (Home Care/Gold Form), Provider FINAL REVIEW of Orders, Appointments, Gold Form - Small Business Representative Summary Angie Mac (Resident)) (Signed 12-Feb-2018 10:29) Authored: Discharge Orders, Hospital Course (Home Care/Gold Form), Provider FINAL REVIEW of Orders, Appointments, Gold Form - Small Business Representative Summary Last Updated: 13-Feb-2018 06:10 by Wayne Aguilar) DAILY PROGRESS Observed: 02/12/2018 Status: COMPLETED Source: [facility] 7:18 AM HOSPITALS REPOSITORY Service: Urology Subjective Data: CLOVER HERNANDEZ is a 77 year old Female who is Hospital Day # 4. Objective Data: Objective Information: T PRBPSpO2 [id number]/5394% Date/Time02/11 23: 23: 23: 23: 23:43 Range(36.4C - 36.9C ) (73 - 89 ) (18 - 18 ) (106 - 108 )/ (52 - 60 ) (94% - 99% ) Highest temp of 36.9 C was recorded at 02/11 12:03 Pain with Activity reported at 02/12 3:52: 0 Pain at Rest reported at 02/12 3:52: 0 T PRBPSpO2 [id number]/5394% Date/Time02/11 23: 23: 23: 23: 23:43 Range(36.4C - 36.9C ) (73 - 89 ) (18 - 18 ) (106 - 108 )/ (52 - 60 ) (94% - 99% ) Highest temp of 36.9 C was recorded at 02/11 12:03 Physical Exam: Constitutional: Lying comfortably in bed, in no acute distress, alert and cooperative Eyes: EOMI, sclerae anicteric ENMT: Mucous membranes moist Head/Neck: Neck supple, no apparent injury Respiratory/Thorax: Breathing comfortably on room air, symmetric chest expansion Cardiovascular: Regular rate and rhythm Gastrointestinal: Abdomen soft, non-tender, non-distended. No rebound tenderness/guarding Genitourinary: Voiding. Musculoskeletal: Moving all extremities. Extremities: Extremities warm and well perfused. BL LE edema. Neurological: Awake/alert/oriented x3. No gross neurological deficits. Psychological: Appropriate mood and behavior Skin: Warm and dry, no lesions, no rashes Medication: Medications: Continuous Medications No continuous medications are active Scheduled Medications 1. Enoxaparin SubCutaneous: 80 mg SubCutaneous Every 12 Hours 2. Iron Sucrose IV Piggy Back: 200 mg IntraVenous Piggyback Every Other Day 3. Levothyroxine: 100 microgram(s) Oral Daily 4. Oxybutynin: 5 mg Oral 3 Times a Day PRN Medications 1. Heparin Flush 10 unit/ mL PF Injectable: 5 mL IntraVenous Flush Every 12 Hours 2. Lidocaine 1% Injectable (PICC KIT): 1 mL IntraDermal Once 3. Melatonin: 3 mg Oral At Bedtime 4. traMADol: 50 mg Oral Every 12 Hours Recent Lab Results: Results: I have reviewed these laboratory results: Complete Blood Count 12-Feb-2018 05:32:00 ResultValue White Blood Cell Count 10.2 Nucleated Erythrocyte Count 0.0 Red Blood Cell Count 2.93 L HGB 7.9 L HCT 25.3 L MCV 86 MCHC 31.2 L PLT 264 RDW-CV 16.9 H Radiology Results: Results: Conclusion: CONCLUSIONS: Right Lower Venous: There are chronic changes visualized in the mid femoral and distal Femoral veins. Cannot rule out thrombus in non-visualized posterior tibial vein. Left Lower Venous: There is acute occlusive deep vein thrombosis visualized in the popliteal vein. There is acute non-occlusive deep vein thrombosis visualized in the distal femoral vein. VAS LAB Venous Duplex Ultrasound for DVT [Feb 10 2018 5:07PM] Conclusion: CONCLUSIONS: 1. The left ventricular systolic function is normal with a 60-65% estimated ejection fraction. 2. Spectral Doppler shows an impaired relaxation pattern of left ventricular diastolic filling. QUANTITATIVE DATA SUMMARY: 2D MEASUREMENTS: Normal Ranges: IVSd: 1.19 cm (0.6-1.1cm) LVPWd: 1.04 cm (0.6-1.1cm) LVIDd: 5.07 cm (3.9-5.9cm) LVIDs: 3.18 cm LV Mass Index: 114.3 g/m2 LV % FS 37.3 % LA VOLUME: Normal Ranges: LA Volume Index: 25.3 ml/m2 M-MODE MEASUREMENTS: Normal Ranges: Ao Root: 2.90 cm (2.0-3.7cm) LAs: 3.30 cm (2.7-4.0cm) AORTA MEASUREMENTS: Normal Ranges: Asc Ao, d: 3.80 cm (2.1-3.4cm) LV SYSTOLIC FUNCTION BY 2D PLANIMETRY (MOD): Normal Ranges: EF-A4C View: 62.4 % (>55%) EF-A2C View: 58.5 % LV DIASTOLIC FUNCTION: Normal Ranges: MV Peak E: 0.65 m/s (0.7-1.2 m/s) MV Peak A: 0.92 m/s (0.42-0.7 m/s) E/A Ratio: 0.71 (1.0-2.2) MV e' 0.08 m/s (>8.0) MV lateral e' 0.10 m/s MV medial e' 0.06 m/s MV A Dur: 166.00 msec E/e' Ratio: 8.14 (<8.0) MV DT: 166 msec (150-240 msec) PulmV Sys Storm: 75.40 cm/s PulmV Soria Storm: 36.00 cm/s PulmV S/D Storm: 1.80 PulmV A Revs Storm: 35.60 cm/s PulmV A Revs Dur: 137.00 msec AORTIC VALVE: Normal Ranges: AoV Vmax: 1.35 m/s (<1.7m/s) AoV Peak P.3 mmHg (<20mmHg) LVOT Max Storm: 1.22 m/s (<1.1m/s) LVOT VTI: 21.50 cm LVOT Diameter: 2.20 cm (1.8-2.4cm) AoV Area,Vmax: 3.44 cm2 (2.5-4.5cm2) RIGHT VENTRICLE: RV 1 3.46 cm RV 2 2.37 cm RV 3 6.54 cm TAPSE: 25.4 mm RV s' 0.21 m/s PULMONIC VALVE: Normal Ranges: PV Max Storm: 1.2 m/s (0.6-0.9m/s) PV Max P.6 mmHg Pulmonary Veins: PulmV A Revs Dur: 137.00 msec PulmV A Revs Storm: 35.60 cm/s PulmV DiasVel: 36.00 cm/s PulmV S/D Storm: 1.80 PulmV Sys Storm: 75.40 cm/s Echocardiogram [Feb 10 2018 12:21PM] Assessment and Plan: Assessment: 77 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 Decision was made to reschedule the case after a more thorough workup for LE edema. DVT ultrasound revealed acute left fem/pop vein DVT, right chronic DVT. ECHO with EF 62%. Patient was offered IVC filter vs therapeutic lovenox. Patient was started on therapeutic lovenox afternoon of 02/10. Plan: Feeding: RD Pain control: PO IVF: HLIV PT consulted Sats > 92%, encourage IS Therapeutic lovenox No transfusion indicated at this time No glycemic concerns at this time No ulcer prophylaxis indicated at this time Palliative care consult - appreciate recommendations Medical oncology consult - recommended PDL1 and palliative consult Will have her follow up with her outpatient oncologist - Follow up Dr. Nichols recommendations Discussed with Attending, Dr. Lizzie Mac, PGY-1 Urology pg#: [id number] Urology Service: [id number] Electronic Signatures: Wayne Aguilar) (Signed 13-Feb-2018 06:10) Authored: Signature/Cosignature/Attestation Co-Signer: Service, Subjective Data, Objective Data, Assessment and Plan, Signature/Cosignature/Attestation Angie Mac (Resident)) (Signed 12-Feb-2018 07:27) Authored: Service, Subjective Data, Objective Data, Assessment and Plan, Signature/Cosignature/Attestation Last Updated: 13-Feb-2018 06:10 by Wayne Aguilar) CBC Collected: 02/12/2018 Status: F Source: [facility] 5:32 AM [facility]OSPITALS REPOSITORY TYPE CODE TESTS RESULT OUT OF REFERENCE UNITS RANGE LAB WBCR(LOINC 4.4 - 11.3 x10E9/L ) WBC 10.2 LAB NRBC(LOINC 0.0-0.0 /100 WBC ) NUCLEATED RBC 0.0 LAB RBCCT(LOIN 4.00 - 5.20 x10E12/L C) Low RBC 2.93 LAB HGB(LOINC) 12.0 - 16.0 g/dL Low HGB 7.9 LAB HCT(LOINC) 36.0 - 46.0 % Low HCT 25.3 LAB MCV(LOINC) 80 - 100 fL MCV 86 LAB MCHC2(LOIN 32.0 - 36.0 g/dL C) Low MCHC 31.2 LAB PLTCT(LOIN 150 - 450 x10E9/L C) PLT 264 LAB RDWCV(LOIN 11.5 - 14.5 % C) High RDW-CV 16.9 Performed By: #### CBC #### [facility] [id number] [place] [id number] CONSULT-ONCOLOGY Observed: 02/11/2018 Status: COMPLETED Source: [facility] 11:06 AM HOSPITALS REPOSITORY Service: Service: Oncology Consult: Consult requested by (Attending Name): Dr. Aguilar Reason: Bladder cancer History of Present Illness: Admission Reason: Cystectomy HPI: 77 y/o F with hx of MIBC s/p cisplatin and radiation initially with recurrence, was admitted to the hospital for elective radical cystectomy. The patient was not felt to be a candidate for radical resection of the urinary bladder at present. She was noted to have LE edema and w/u with Dopplers showed an acute left LE DVT and right sided chronic DVT. Surgery has been postponed. SHe was started on therapeutic lovenox. Oncology was consulted for further management. At present, she is denying any nausea, vomiting, diarrhea, abd pain, rash, fevers, chills. She does have uirnary incontinence. No bleeeding symptoms. She reports LE edema b/y which is worse in the left LE and has been there for > a month. She normally uses a walker to ambulate. Not usually very ambulatory. Rest of ROS was negative Onc Hx: - urinary urgency as well as overflow incontinence in 03/2016. - found to have atypical cells in urine and CT concerning for bladder mass. 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 - s/p 4 cycles of Cisplatin with XRT as she refused cystectomy at that time. - Her first surveillance scan was in 10/11 per patient and was reported cancer free. - November 2016: again urinary urgency and worsening incontinence. Two episodes of mild hematuria. - s/p TURBT on 01/05/18. Per operative report Necrotic tumor in upper bladder and left urethral orifice not visualized Tumor was not completely resected as plan for radical cystectomy. Path showed inv. poorly diff muscle invasive cancer. 02/09/18 - admitted for radical cystectomy PMH: HTN- was recently taken off Lisinopril and HCTZ for hyponatremia. Hypothyroidism Bladder cancer as above. PSH: Lumbar spinal stenosis s/p laminectomy in 2004 TURBT in 05/14 Family Hx: Father had bladder cancer at 78 yrs of age-had ileal conduit No other h/o malignancy Social hx: Smoker in her teens. Quit since then. Occasional alcohol use. Denies Illicit drug use. Lives with her . Review Family/Social History and ROS: Review Family/Social History and ROS: I have reviewed the family and social history and review of systems from the History and Physical. Allergies: sulfamethoxazole: Other, Itching sulfa drugs: Unknown Tape - Adhesive, Bandaids, Paper: Unknown Objective: Objective Information: T PRBPSpO2 [id number]/6099% Date/Time02/11 12: 12: 12: 12: 12:03 Range(36.7C - 37.2C ) (73 - 83 ) (16 - 18 ) (100 - 110 )/ (46 - 60 ) (91% - 99% ) Highest temp of 37.2 C was recorded at 02/11 6:56 Physical Exam: Constitutional: sitting comfortably in bed in no acute distress ECOG 2 Eyes: no scleral icterus Respiratory/Thorax: CTA b/l Cardiovascular: S1, S2, no m/r/g Gastrointestinal: soft, NT, normal BS Extremities: 2+ edema b/l, L > R Neurological: non focal Skin: no skin rash warm Medications: Medications: Continuous Medications No continuous medications are active Scheduled Medications 1. Enoxaparin SubCutaneous: 80 mg SubCutaneous Every 12 Hours 2. Iron Sucrose IV Piggy Back: 200 mg IntraVenous Piggyback Every Other Day 3. Levothyroxine: 100 microgram(s) Oral Daily 4. Oxybutynin: 5 mg Oral 3 Times a Day PRN Medications 1. Heparin Flush 10 unit/ mL PF Injectable: 5 mL IntraVenous Flush Every 12 Hours 2. Lidocaine 1% Injectable (PICC KIT): 1 mL IntraDermal Once 3. Melatonin: 3 mg Oral At Bedtime 4. traMADol: 50 mg Oral Every 12 Hours Recent Lab Results: Results: I have reviewed these laboratory results: Complete Blood Count 10-Feb-2018 05:02:00 ResultValue White Blood Cell Count 9.5 Nucleated Erythrocyte Count 0.0 Red Blood Cell Count 3.12 L HGB 8.4 L HCT 28.4 L MCV 91 MCHC 29.6 L PLT 281 RDW-CV 17.3 H Basic Metabolic Panel 10-Feb-2018 05:02:00 ResultValue Glucose, Serum 92 NA 135 L K 4.3 CL 98 Bicarbonate, Serum 29 Anion Gap, Serum 12 BUN 12 CREAT 0.99 GFR-Non 54 A GFR- 65 Calcium, Serum 8.9 Iron + TIBC, Serum 10-Feb-2018 05:02:00 ResultValue Iron, Serum 18 L Total Iron Binding Capacity 152 L % Saturation 12 L Ferritin, Serum 10-Feb-2018 05:02:00 ResultValue Ferritin, Serum 503 H Assessment: 77 y/o F with hx of MIBC s/p cisplatin and radiation initially with recurrence, was admitted to the hospital for elective radical cystectomy. Pt felt not be a candidate for radical cystectomy. Also found to have left LE DVT. Oncology was consulted for further recommendations. Patient understands that she is not a candidate for surgery, and chemotherapy will be palliative. She has received cisplatin in the past and may not be a candidate for cisplatin based therapy. However, there are other options available including, gemcitabine/carboplatin, atezolizumab or other immunotherapy, single agent gemzar and subsequent therapies of immunotherapy if not not eligible upfront, signle agent paclitaxel or docetaxel. Would favor chemotherapy first before immunotherapy. Please also check PD-L1 on the previous biopsy. Patient has an oncologist at [facility] Dr. Murtaza Mcgill. Pt would like to continue follow up with her primary oncologist for further treatment. Please make sure she has an appointment with her oncologist after discharge so the patient and her oncologist can decide on what the best option is for further treatment. Agree with palliative care consult for symptom management. Discussed with Dr. Rohan [facility] [id number] Signature/Cosignature/Attestation: Attending AttestationI saw and evaluated the patient. I personally obtained the owusu and critical portions of the history and physical exam or was physically present for owusu and critical portions performed by the resident/fellow. I reviewed the resident/fellows documentation and discussed the patient with the resident/fellow. I agree with the resident/fellows medical decision making as documented in the residents note. I personally evaluated the patient (as noted in the above attestation) on 11-Feb-2018 Electronic Signatures: Lauro Key (Fellow)) (Signed 11-Feb-2018 14:39) Authored: Service, History of Present Illness, Review Family/Social History and ROS, Allergies, Objective, Assessment/Recommendations, Signature/Cosignature/Attestation Douglas Madrigal) (Signed 11-Feb-2018 19:06) Authored: Assessment/Recommendations, Signature/Cosignature/Attestation Co-Signer: History of Present Illness, Review Family/Social History and ROS, Objective, Assessment/Recommendations, Signature/Cosignature/Attestation Last Updated: 11-Feb-2018 19:06 by Douglas Madrigal) DAILY PROGRESS Observed: 02/11/2018 Status: COMPLETED Source: [facility] 5:42 AM [facility]OS[facility]ITALS REPOSITORY Service: Urology Subjective Data: CLOVER HERNANDEZ is a 77 year old Female who is Hospital Day # 3. Objective Data: Objective Information: T PRBPSpO2 [id number]/5391% Date/Time02/11 0:00104/13 0:00104/13 0:00104/13 0:00104/13 0:00 Range(36.7C - 37.1C ) (79 - 83 ) (16 - 17 ) (107 - 110 )/ (46 - 53 ) (91% - 93% ) Highest temp of 37.1 C was recorded at 02/11 0:00 Physical Exam: Constitutional: Lying comfortably in bed, in no acute distress, alert and cooperative Eyes: EOMI, sclerae anicteric ENMT: Mucous membranes moist Head/Neck: Neck supple, no apparent injury Respiratory/Thorax: Breathing comfortably on room air, symmetric chest expansion Cardiovascular: Regular rate and rhythm Gastrointestinal: Abdomen soft, non-tender, non-distended. No rebound tenderness/guarding Genitourinary: Voiding. Musculoskeletal: Moving all extremities. Extremities: Extremities warm and well perfused. BL LE edema. Neurological: Awake/alert/oriented x3. No gross neurological deficits. Psychological: Appropriate mood and behavior Skin: Warm and dry, no lesions, no rashes Medication: Medications: Continuous Medications No continuous medications are active Scheduled Medications 1. Enoxaparin SubCutaneous: 80 mg SubCutaneous Every 12 Hours 2. Iron Sucrose IV Piggy Back: 200 mg IntraVenous Piggyback Every Other Day 3. Levothyroxine: 100 microgram(s) Oral Daily 4. Oxybutynin: 5 mg Oral 3 Times a Day PRN Medications 1. Heparin Flush 10 unit/ mL PF Injectable: 5 mL IntraVenous Flush Every 12 Hours 2. Lidocaine 1% Injectable (PICC KIT): 1 mL IntraDermal Once 3. Melatonin: 3 mg Oral At Bedtime 4. traMADol: 50 mg Oral Every 12 Hours Recent Lab Results: Results: I have reviewed these laboratory results: Complete Blood Count 10-Feb-2018 05:02:00 ResultValue White Blood Cell Count 9.5 Nucleated Erythrocyte Count 0.0 Red Blood Cell Count 3.12 L HGB 8.4 L HCT 28.4 L MCV 91 MCHC 29.6 L PLT 281 RDW-CV 17.3 H Basic Metabolic Panel 10-Feb-2018 05:02:00 ResultValue Glucose, Serum 92 NA 135 L K 4.3 CL 98 Bicarbonate, Serum 29 Anion Gap, Serum 12 BUN 12 CREAT 0.99 GFR-Non 54 A GFR- 65 Calcium, Serum 8.9 Radiology Results: Results: Conclusion: CONCLUSIONS: Right Lower Venous: There are chronic changes visualized in the mid femoral and distal Femoral veins. Cannot rule out thrombus in non-visualized posterior tibial vein. Left Lower Venous: There is acute occlusive deep vein thrombosis visualized in the popliteal vein. There is acute non-occlusive deep vein thrombosis visualized in the distal femoral vein. VASC LAB Venous Duplex Ultrasound for DVT [Feb 10 2018 5:07PM] Conclusion: CONCLUSIONS: 1. The left ventricular systolic function is normal with a 60-65% estimated ejection fraction. 2. Spectral Doppler shows an impaired relaxation pattern of left ventricular diastolic filling. QUANTITATIVE DATA SUMMARY: 2D MEASUREMENTS: Normal Ranges: IVSd: 1.19 cm (0.6-1.1cm) LVPWd: 1.04 cm (0.6-1.1cm) LVIDd: 5.07 cm (3.9-5.9cm) LVIDs: 3.18 cm LV Mass Index: 114.3 g/m2 LV % FS 37.3 % LA VOLUME: Normal Ranges: LA Volume Index: 25.3 ml/m2 M-MODE MEASUREMENTS: Normal Ranges: Ao Root: 2.90 cm (2.0-3.7cm) LAs: 3.30 cm (2.7-4.0cm) AORTA MEASUREMENTS: Normal Ranges: Asc Ao, d: 3.80 cm (2.1-3.4cm) LV SYSTOLIC FUNCTION BY 2D PLANIMETRY (MOD): Normal Ranges: EF-A4C View: 62.4 % (>55%) EF-A2C View: 58.5 % LV DIASTOLIC FUNCTION: Normal Ranges: MV Peak E: 0.65 m/s (0.7-1.2 m/s) MV Peak A: 0.92 m/s (0.42-0.7 m/s) E/A Ratio: 0.71 (1.0-2.2) MV e' 0.08 m/s (>8.0) MV lateral e' 0.10 m/s MV medial e' 0.06 m/s MV A Dur: 166.00 msec E/e' Ratio: 8.14 (<8.0) MV DT: 166 msec (150-240 msec) PulmV Sys Storm: 75.40 cm/s PulmV Soria Storm: 36.00 cm/s PulmV S/D Storm: 1.80 PulmV A Revs Storm: 35.60 cm/s PulmV A Revs Dur: 137.00 msec AORTIC VALVE: Normal Ranges: AoV Vmax: 1.35 m/s (<1.7m/s) AoV Peak P.3 mmHg (<20mmHg) LVOT Max Storm: 1.22 m/s (<1.1m/s) LVOT VTI: 21.50 cm LVOT Diameter: 2.20 cm (1.8-2.4cm) AoV Area,Vmax: 3.44 cm2 (2.5-4.5cm2) RIGHT VENTRICLE: RV 1 3.46 cm RV 2 2.37 cm RV 3 6.54 cm TAPSE: 25.4 mm RV s' 0.21 m/s PULMONIC VALVE: Normal Ranges: PV Max Storm: 1.2 m/s (0.6-0.9m/s) PV Max P.6 mmHg Pulmonary Veins: PulmV A Revs Dur: 137.00 msec PulmV A Revs Storm: 35.60 cm/s PulmV DiasVel: 36.00 cm/s PulmV S/D Storm: 1.80 PulmV Sys Storm: 75.40 cm/s Echocardiogram [Feb 10 2018 12:21PM] Assessment and Plan: Assessment: 77 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 Decision was made to reschedule the case after a more thorough workup for LE edema. DVT ultrasound revealed acute left fem/pop vein DVT, right chronic DVT. ECHO with EF 62%. Patient was offered IVC filter vs therapeutic lovenox. Patient was started on therapeutic lovenox afternoon of 02/10. Plan: Feeding: RD Pain control: PO IVF: HLIV PT consulted Sats > 92%, encourage IS Therapeutic lovenox No transfusion indicated at this time No glycemic concerns at this time No ulcer prophylaxis indicated at this time Palliative care consult Medical oncology consult - Follow up Dr. Nichols recommendations - Will reschedule case pending workup Discussed with Attending, Dr. Lizzie Mac, PGY-1 Urology pg#: [id number] Urology Service: [id number] Electronic Signatures: Wayne Aguilar) (Signed 11-Feb-2018 09:05) Authored: Signature/Cosignature/Attestation Co-Signer: Service, Subjective Data, Objective Data, Assessment and Plan Angie Mac (Resident)) (Signed 11-Feb-2018 05:48) Authored: Service, Subjective Data, Objective Data, Assessment and Plan Last Updated: 11-Feb-2018 09:05 by Wayne Aguilar) EMR ADDON Collected: 02/10/2018 Status: F Source: [facility] 10:30 AM [facility]PITALS REPOSITORY TYPE CODE TESTS RESULT OUT OF REFERENCE UNITS RANGE LAB EMRAC(LOIN C) ADDON CONFIRMATION REQUEST REC'D Performed By: #### EMRAD #### NO LOCATION NEEDED ECHOCARDIOGRAM Observed: 02/10/2018 Status: F Source: [facility] 8:57 AM [facility] REPOSITORY [facility], [address] [place] [address] and TRANSTHORACIC ECHOCARDIOGRAM REPORT Patient Name: [facility] Reading Physician: [id number] Eloy Kemp MD Study Date: 02/10/2018 Referring Physician: Wayne Aguilar MD MPH MRN/PID: [id number] PCP: Accession/Order#: [id number] Department Location: [facility] Non Invasive Date of : 1940 Fellow: Shellie Maher MD Gender: F Nurse: Admit Date: 02/09/2018 Ex Chef: Whit Quan [facility] Admission Status: Inpatient - Additional Staff: Routine Height: 162.56 cm CC Report to: [address] [place] [address] Weight: 83.46 kg Study Type: Echocardiogram BSA: 1.89 m2 Blood Pressure: 131 /50 mmHg Diagnosis/ICD: Z01.818-Encounter for other preprocedural examination Indication: Pre-op work up Procedure/CPT: Echo Complete w Full Doppler-[id number] Patient History: Pertinent History: Bladder cancer s/p chemo and radiation. Study Detail: The following Echo studies were performed: 2D, M-Mode, Doppler and color flow. Technically challenging study due to body habitus. PHYSICIAN INTERPRETATION: Left Ventricle: The left ventricular systolic function is normal, with an estimated ejection fraction of 60-65%. The left ventricular cavity size is normal. Spectral Doppler shows an impaired relaxation pattern of left ventricular diastolic filling. Left Atrium: The left atrium is normal in size. Right Ventricle: The right ventricle is normal in size. There is normal right ventricular global systolic function. Right Atrium: The right atrium is normal in size. Aortic Valve: The aortic valve is trileaflet. There is mild to moderate aortic valve cusp calcification. There is trivial aortic valve regurgitation. The peak instantaneous gradient of the aortic valve is 7.3 mmHg. Mitral Valve: The mitral valve is normal in structure. There is trace mitral valve regurgitation. Tricuspid Valve: The tricuspid valve is structurally normal. There is trace tricuspid regurgitation. The right ventricular systolic pressure is unable to be estimated. Pulmonic Valve: The pulmonic valve is not well visualized. There is trace pulmonic valve regurgitation. Pericardium: There is no pericardial effusion noted. Aorta: The aortic root is abnormal. There is mild dilatation of the aortic root. Systemic Veins: The inferior vena cava appears to be of normal size. There is IVC inspiratory collapse greater than 50%. CONCLUSIONS: 1. The left ventricular systolic function is normal with a 60-65% estimated ejection fraction. 2. Spectral Doppler shows an impaired relaxation pattern of left ventricular diastolic filling. QUANTITATIVE DATA SUMMARY: 2D MEASUREMENTS: Normal Ranges: IVSd: 1.19 cm (0.6-1.1cm) LVPWd: 1.04 cm (0.6-1.1cm) LVIDd: 5.07 cm (3.9-5.9cm) LVIDs: 3.18 cm LV Mass Index: 114.3 g/m2 LV % FS 37.3 % LA VOLUME: Normal Ranges: LA Volume Index: 25.3 ml/m2 M-MODE MEASUREMENTS: Normal Ranges: Ao Root: 2.90 cm (2.0-3.7cm) LAs: 3.30 cm (2.7-4.0cm) AORTA MEASUREMENTS: Normal Ranges: Asc Ao, d: 3.80 cm (2.1-3.4cm) LV SYSTOLIC FUNCTION BY 2D PLANIMETRY (MOD): Normal Ranges: EF-A4C View: 62.4 % (>55%) EF-A2C View: 58.5 % LV DIASTOLIC FUNCTION: Normal Ranges: MV Peak E: 0.65 m/s (0.7-1.2 m/s) MV Peak A: 0.92 m/s (0.42-0.7 m/s) E/A Ratio: 0.71 (1.0-2.2) MV e' 0.08 m/s (>8.0) MV lateral e' 0.10 m/s MV medial e' 0.06 m/s MV A Dur: 166.00 msec E/e' Ratio: 8.14 (<8.0) MV DT: 166 msec (150-240 msec) PulmV Sys Storm: 75.40 cm/s PulmV Soria Storm: 36.00 cm/s PulmV S/D Storm: 1.80 PulmV A Revs Strom: 35.60 cm/s PulmV A Revs Dur: 137.00 msec AORTIC VALVE: Normal Ranges: AoV Vmax: 1.35 m/s (<1.7m/s) AoV Peak P.3 mmHg (<20mmHg) LVOT Max Storm: 1.22 m/s (<1.1m/s) LVOT VTI: 21.50 cm LVOT Diameter: 2.20 cm (1.8-2.4cm) AoV Area,Vmax: 3.44 cm2 (2.5-4.5cm2) RIGHT VENTRICLE: RV 1 3.46 cm RV 2 2.37 cm RV 3 6.54 cm TAPSE: 25.4 mm RV s' 0.21 m/s PULMONIC VALVE: Normal Ranges: PV Max Storm: 1.2 m/s (0.6-0.9m/s) PV Max P.6 mmHg Pulmonary Veins: PulmV A Revs Dur: 137.00 msec PulmV A Revs Storm: 35.60 cm/s PulmV Soria Storm: 36.00 cm/s PulmV S/D Storm: 1.80 PulmV Sys Storm: 75.40 cm/s [id number] Eloy Kemp MD Electronically signed on 02/10/2018 at 12:20:58 PM Final VASC LAB VENOUS DUPLEX Observed: 02/10/2018 Status: F Source: [facility] ULTRASOUND DVT 8:18 AM [facility], [address] [place] [address] and Vascular Lab Report Lower Venous Duplex Ultrasound Patient Name: CLOVER Stevens Physician: [id number] Foss DO Study Date: 02/10/2018 Referring Physician: Wayne Aguilar MD MPH MRN/PID: [id number] PCP: Accession/Order#: [id number] CC Report to: Date of : 1940 Technologist: Dorina Garduno RVT, RDMS Gender: F Technologist 2: Admission Status: Inpatient Location Performed: [facility] Diagnosis/ICD: R60.0-Localized (leg) edema Procedure/CPT: 68619 Peripheral venous duplex scan for DVT complete-[id number] CRITICAL RESULT Critical Result: Positive for Acute DVT of the left distal FV and popliteal vein. Notification called to Dr. Angie Mac on 02/10/2018 at 8:54:50 AM by . CONCLUSIONS: Right Lower Venous: There are chronic changes visualized in the mid femoral and distal Femoral veins. Cannot rule out thrombus in non- visualized posterior tibial vein. Left Lower Venous: There is acute occlusive deep vein thrombosis visualized in the popliteal vein. There is acute non-occlusive deep vein thrombosis visualized in the distal femoral vein. Imaging AND Doppler Findings: Right Compressible Thrombus CFV Yes None PFV Yes None FV Proximal Yes None FV Mid Partial None and Chronic FV Distal Partial Chronic Popliteal Yes None Peroneal Yes None Left Compress Thrombus CFV Yes None PFV Yes None FV Proximal Yes None FV Mid Yes None FV Distal Partial Acute non-occlusive Popliteal No Acute occlusive Peroneal Yes None PTV Yes None [id number] Reece Foss DO Final DAILY PROGRESS Observed: 02/10/2018 Status: COMPLETED Source: [facility] NOTE-[facility]OLOGY 6:46 AM [facility]ITALS REPOSITORY Service: Urology Subjective Data: CLOVER HERNANDEZ is a 77 year old Female who is Hospital Day # 2. No acute events overnight. No nausea/vomiting, fevers/chills, chest pain/SOB. Objective Data: Objective Information: T PRBPSpO2 [id number]/3995% Date/Time02/10 0:00104/12 0:00104/12 0:00104/12 0:00104/12 0:00 Range(37C - 37.4C ) (78 - 93 ) (16 - 18 ) (105 - 131 )/ (39 - 55 ) (94% - 99% ) Highest temp of 37.4 C was recorded at 02/09 20:34 Pain with Activity reported at 02/09 16:30: 0 Pain at Rest reported at 02/09 16:30: 0 Physical Exam: Constitutional: Lying comfortably in bed, in no acute distress, alert and cooperative Eyes: EOMI, sclerae anicteric ENMT: Mucous membranes moist Head/Neck: Neck supple, no apparent injury Respiratory/Thorax: Breathing comfortably on room air, symmetric chest expansion Cardiovascular: Regular rate and rhythm Gastrointestinal: Abdomen soft, non-tender, non-distended. No rebound tenderness/guarding Genitourinary: Voiding. Musculoskeletal: Moving all extremities. Extremities: Extremities warm and well perfused. No LE edema. Neurological: Awake/alert/oriented x3. No gross neurological deficits. Psychological: Appropriate mood and behavior Skin: Warm and dry, no lesions, no rashes Medication: Medications: Continuous Medications No continuous medications are active Scheduled Medications 1. Heparin SubCutaneous: 5000 unit(s) SubCutaneous Every 8 Hours 2. Levothyroxine: 100 microgram(s) Oral Daily 3. Oxybutynin: 5 mg Oral 3 Times a Day PRN Medications 1. Heparin Flush 10 unit/ mL PF Injectable: 5 mL IntraVenous Flush Every 12 Hours 2. Lidocaine 1% Injectable (PICC KIT): 1 mL IntraDermal Once 3. Melatonin: 3 mg Oral At Bedtime 4. traMADol: 50 mg Oral Every 12 Hours Recent Lab Results: Results: I have reviewed these laboratory results: Complete Blood Count 10-Feb-2018 05:02:00 ResultValue White Blood Cell Count 9.5 Nucleated Erythrocyte Count 0.0 Red Blood Cell Count 3.12 L HGB 8.4 L HCT 28.4 L MCV 91 MCHC 29.6 L PLT 281 RDW-CV 17.3 H Basic Metabolic Panel 10-Feb-2018 05:02:00 ResultValue Glucose, Serum 92 NA 135 L K 4.3 CL 98 Bicarbonate, Serum 29 Anion Gap, Serum 12 BUN 12 CREAT 0.99 GFR-Non 54 A GFR- 65 Calcium, Serum 8.9 Assessment and Plan: Assessment: 77 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 Decision was made to reschedule the case after a more thorough workup for LE edema. Plan: - Mid-line placement - Follow up DVT scan - Follow up Echo - Follow up Dr. Nichols recommendations - Will reschedule case pending workup Discussed with Attending, Dr. Lizzie Munson, PGY-2 Urology pg#: [id number] Urology Service: [id number] Electronic Signatures: Jessi Munson (Resident)) (Signed 10-Feb-2018 06:52) Authored: Service, Subjective Data, Objective Data, Assessment and Plan Wayne Aguilar) (Signed 10-Feb-2018 12:54) Authored: Signature/Cosignature/Attestation Co-Signer: Service, Subjective Data, Objective Data, Assessment and Plan Last Updated: 10-Feb-2018 12:54 by Wayne Aguilar) CBC Collected: 02/10/2018 Status: F Source: [facility] 5:02 AM HOSPITALS REPOSITORY TYPE CODE TESTS RESULT OUT OF REFERENCE UNITS RANGE LAB WBCR(LOINC 4.4 - 11.3 x10E9/L ) WBC 9.5 LAB NRBC(LOINC 0.0-0.0 /100 WBC ) NUCLEATED RBC 0.0 LAB RBCCT(LOIN 4.00 - 5.20 x10E12/L C) Low RBC 3.12 LAB HGB(LOINC) 12.0 - 16.0 g/dL Low HGB 8.4 LAB HCT(LOINC) 36.0 - 46.0 % Low HCT 28.4 LAB MCV(LOINC) 80 - 100 fL MCV 91 LAB MCHC2(LOIN 32.0 - 36.0 g/dL C) Low MCHC 29.6 LAB PLTCT(LOIN 150 - 450 x10E9/L C) PLT 281 LAB RDWCV(LOIN 11.5 - 14.5 % C) High RDW-CV 17.3 Performed By: #### CBC #### [facility] [address] [place] [address] BASIC METABOLIC PANEL Collected: 02/10/2018 Status: F Source: [facility] 5:02 AM HOSPITALS REPOSITORY TYPE CODE TESTS RESULT OUT OF RANGE REFERENCE UNITS LAB GLU(LOINC) 74 - 99 mg/dL GLUCOSE 92 LAB SOD(LOINC) 136 - 145 mmol/L Low SODIUM 135 LAB K(LOINC) 3.5 - 5.3 mmol/L POTASSIUM 4.3 LAB CHLOR(LOIN 98 - 107 mmol/L C) CHLORIDE 98 LAB BIC(LOINC) 21 - 32 mmol/L BICARBONATE 29 LAB ANGAP(LOIN 10 - 20 mmol/L C) ANION GAP 12 LAB UREA(LOINC 6 - 23 mg/dL ) UREA NITROGEN 12 LAB CREA(LOINC 0.50 - 1.05 mg/dL ) CREATININE 0.99 LAB GFRFN(LOIN >60 mL/min/1.7 C) 3m2 GFR-NON Abnormal AM. 54 LAB GFRAA(LOIN >60 mL/min/1.7 C) 3m2 GFR- AM. 65 Result Comment: CALCULATIONS OF ESTIMATED GFR ARE PERFORMED USING THE MDRD STUDY EQUATION FOR THE IDMS-TRACEABLE CREATININE METHODS. CLIN CHEM 2007;53:766-72 LAB CA(LOINC) 8.6 - 10.6 mg/dL CALCIUM 8.9 Performed By: #### BMP #### [facility] [address] [facility] [place] [address] FERRITIN Collected: 02/10/2018 Status: F Source: [facility] 5:02 HOSPITALS REPOSITORY TYPE CODE TESTS RESULT OUT OF REFERENCE UNITS RANGE LAB CARLOS(LOINC 8 - 150 ug/L ) High FERRITIN 503 Performed By: #### CARLOS #### [facility] [address] [facility] [place] [address] IRON + TIBC Collected: 02/10/2018 Status: F Source: [facility] 5:02 HOSPITALS REPOSITORY TYPE CODE TESTS RESULT OUT OF REFERENCE UNITS RANGE LAB IRON(LOINC 35 - 150 ug/dL ) Low IRON 18 LAB TIBC(LOINC 240 - 445 ug/dL ) Low TIBC 152 LAB %SAT(LOINC 25 - 45 % ) Low % SATURATION 12 Performed By: #### IRONT #### [facility] [address] [facility] [place] [address] DISCHARGE PLANNING Observed: 02/09/2018 Status: UNK Source: UNIVERSITY NOTE 4:11 PM HOSPITALS REPOSITORY Patient Learning: Factors that Impact Ability to Learnnone(1) Other Learner: Learnersignificant other; family(1) Factors that Impact Ability to Learnnone(2) Other Factors: Functional Screen: In the recent/past 2-4 weeks, patient or family have noticedno issues that require a rehabilitation consult at this time(2) Discharge Planning: Discharge Planning: Nursing Note: Discharge Planning - Admission Date/Time: 02/09/18 1500 Admitted to [facility] from PACU. Pt identity verified using name & by self. Pt lives with spouse, feels safe & has support. Prior to admission: independent. Anticipated DC Disposition: home. (E) DC Planning initiated (P) DC Planning ongoing. RN Signature: Shaista Doran RN 02/12/18 2080 neonatal icu coordinator note: asked for [place] on generic Lovenox with insurance the out of pocket cost is $238. They may send the pt home on oxygen but I told them a walking pulse ox test needs to be done. Whit Ma RN Configuration Analyst 02/12/18 7750 neonatal icu coordinator note: I contacted to clarify if pt needs Home care or oxygen for discharge and she does not need it. Whit Ma RN Configuration Analyst Nursing Note: Discharge Planning Discharge Date/Time: 02/12/18 1820 Reviewed with pt, , and daughter DC instructions, diet, activity, s/s to report to MD, FU appt with MD, prescriptions/new medications, PI Sheets verbalized understanding. Skills Taught: Demonstrated ability to catheter care and lovenox teaching Supplies Given: leg bag, night time cath bag and alcohol swabs Pt will call MD with any questions or concerns. See EMR for complete DC instructions. (E) DC home via private car. (P) DC Planning complete. RN Signature: Sofia Manley RN Final Disposition/Discharge: Disposition/Discharge Information: Discharge/Transfer Information: Discharge/Transfer Date/[id number] 18:56 Discharged Accompanied Byspouse; family member Discharge Modewheelchair Transportation Methodprivate car Valuables/Medications/Belongings Returnedyes Security Envelope Returnedyes Final DispositionHome Electronic Signatures: Whit Ma (KENN) (Signed 12-Feb-2018 15:39) Authored: Discharge Planning Note Sofia Manley (RN) (Signed 12-Feb-2018 18:58) Authored: Discharge Planning Note, Final Disposition/Discharge Shaista Doran (RN) (Signed 09-Feb-2018 16:12) Authored: Discharge Planning Note Last Updated: 12-Feb-2018 18:58 by Sofia Manley (RN) References: 1. Data Referenced From 5. Education 02/09/2018 04:00 PM 2. Data Referenced From Admission Risk Screen - Adult 02/09/2018 04:00 PM PATIENT PROFILE - Observed: 02/09/2018 Status: UNK Source: UNIVERSITY ADULT V2 4:05 PM HOSPITALS REPOSITORY Profile: Initial Info: How to be AddressedJudy(1) Spoken Language PreferredEnglish (1) Are you currently using the Personal Electronic Health Record or Pllop.it (1) Stated Reason for Admissionsurgery [facility] Medications Brought to Hospitalno General Health: Weight in kg83.9 kilogram(s) Weight in nzt771.9 pound(s) Height in cm162.5 centimeter(s) BMI (kg/m2)31.772 square meter Weight Methodactual (measured) Scale Typebed Height Methodstated Blood Avoidance/Restrictionsnone(1) Previous Transfusion Reactionyes(1) Transfusion Reactionchills(1) RSP Based Care: How would you like to participate in your Leilani/A What is the number one concern for you during this hospitalizationN/A What is the most important thing we can do to support you during this hospitalizationN/A Is there anything we need to know to best care for Tucker/A Substance: Current or Former Substance Use never: Cigarette/Tobacco(1), Alcohol(1), Street Drugs(1) Health Mgmt: Symptoms/Conditions Managed at Homemusculoskeletal Musculoskeletal Symptoms/Conditionsback pain Musculoskeletal Managementmanaged Relationship/Environ: Primary Source of Support/Comfortspouse Lives Withspouse Living Arrangementshouse Resource/Environmental Concernsnone Anticipated Transition [facility] Anticipated at Transitionnone Significant IndicatorsComplete Information Review: Allergies, Home Meds and Significant Events have been Reviewed and Verified with Patient/Familyyes ALLERGY, INTOLERANCE, ADVERSE EVENT: Allergies: sulfamethoxazole: Drug, Other, Itching, Active sulfa drugs: Drug Category, Unknown, Active Tape - Adhesive, Bandaids, Paper: Environment, Unknown, Active Electronic Signatures: Shaista Doran (RN) (Signed 09-Feb-2018 16:11) Authored: Profile, Additional Information Last Updated: 09-Feb-2018 16:11 by Shaista Doran (RN) References: 1. Data Referenced From Patient Profile - Preop v2 02/09/2018 11:39 AM ADMISSION RISK SCREEN Observed: 02/09/2018 Status: UNK Source: UNIVERSITY - ADULT 4:00 PM HOSPITALS REPOSITORY Allergies: Allergies: sulfamethoxazole: Other, Itching sulfa drugs: Unknown Tape - Adhesive, Bandaids, Paper: Unknown Patient Verification: New W ID Band Applied in my Departmentyes Patient Identity Verified Bypatient ID Band FULL Name, include Middle, spelling matches patient's ID used for verificationyes ID Band Matches Patient ID used for Verficationyes ID Band MRN Matches EMR MRNyes Advance Directive: Advance Directive Medicalyes (1) Advance Directive typeLiving Will, Durable Power of [place] [employer] for Healthcare(1) Living Will AvailabilityLiving Will not available now Living Will [id number] Durable Power of [place] [employer] Operator AvailabilityDPOA not available now Durable Power of [place] [employer] Operator [id number] Durable Power of [employer] [place] [employer] contact (name and number)[place] Screen: Type of Assessmentadmission Moderate Risk Factorspatient care equipment (scds, ivs, chest tubes, romeo, etc) High Risk Factorsgait instability Risk for Injury Associated with Fallnone Fall Risk Conclusionhigh falls risk with low risk for associated injury [place] Safety InterventionsWDL *orient to call system *instruct to call for assistance before getting out of bed *non-slip footwear when patient is out of bed *call brown in reach *personal items and telephone in reach *physically safe environment (no spills or clutter) *bed in lowest position with wheels locked *appropriate side rails in place *room/bathroom lighting operational, light cord in reach *appropriate signage on door Fall and Injury Risk Interventionssupervised toileting (mandatory for all high risk patients), exit (bed/chair) alarms (mandatory for all high risk patients), monitor med side effects, consult Pharmacy, educate patient/family for risk for injury (fractures and bleeding) Family Violence Screen: Are you or have you been threatened or abused physically, emotionally, or sexually by anyoneno Do you feel UNSAFE going back to the place where you are livingno Clinical assessment: Are there any apparent signs of injuries/behaviors that could be related to abuse/neglectno Social Service Consult for abuse/neglect needed this visitno Functional screen: Functional Screen: In the recent/past 2-4 weeks, patient or family have noticedno issues that require a rehabilitation consult at this time Learning Assessment (Patient): Patient is Able to be Assessed for Learningyes Factors Influencing Readiness to Learnacuteness of illness; anxiety Factors that Impact Ability to Learnnone Devices/Methods Used to Communicateglasses Learning Preferencesindividual instruction Cultural Considerationsnone Developmental Considerationsnone Yazidi Considerationsnone Learning Assessment (Other Learner): Other learner availableyes... Learnersignificant other; family Factors Influencing Readiness to Learnacuteness of illness Factors that Impact Ability to Learnnone Devices/Methods Used to Communicatenone Learning Preferencesindividual instruction Cultural Considerationsnone Developmental Considerationsnone Yazidi Considerationsnone Suicide/Depression Screen: During the past month, have you often been bothered by feeling down, depressed or hopelessno (1) During the past month, have you often had little interest or pleasure in doing thingsno (1) Have you had any thoughts of harming yourselfno (1) Have you had any thoughts of harming anyone elseno (1) Adult Nutrition Screen: Have you recently lost weight without tryingyes; 2-13 lb Have you been eating poorly because of a decreased appetiteyes MST Score2 RiskMST = 2 or more At Risk. Eating poorly and/or recent weight loss Nutrition Consult needed this visitno Can Patient Participate in Room Serviceyes Patient requires Paper Dishes/Plastic Utensilsno Pain Screen: Pain Scalenumerical 0-10 (1) Pain Scale Educationteaching provided (1) Current Pain Level0 = None Acceptable Pain Level2 = Mild Expression of Pain (nonverbal)none Chronic Painno (1) Spiritual Screen: Are there any cultural, spiritual, christianity practices/values/needs that are important for us to knowno CAGE: Is this an injured patient at a Trauma Center ([facility] / [facility]): no Vaccinations: Vaccination - Influenza Vaccination Screen: Is it flu season (between and )Yes Screening for identified contraindications to influenza vaccination patient/caregiver refusal Vaccination - Pneumonia Vaccination Screen: Patient has received a previous pneumonia vaccine:no/unknown... Pneumonia vaccine NOT indicated due to:patient/caregiver refusal at this time Jose: Skin - Jose Scale: Jose: Sensory Perception (response to environment)(4) no impairment Jose: Moisture (degree skin exposed to moisture)(4) rarely moist Jose: Activity (ability to walk)(3) walks occasionally Jose: Mobility (amount/control of body movement)(4) no limitation Jose: Nutrition (quality of food intake)(3) adequate Jose: Friction and Shear(3) no apparent problem Jose: Score21 Significant Indicatiors: Significant Indicators: Complete Pressure Injury: Pressure Injury Present on Admissionyes Pressure Injury: Image has been removed. _ Pressure Injury Comments stage 2 bilateral buttocks Pressure Injury Photo Takenyes Image Comments Picture in Chart Electronic Signatures: Joanna Alcazar (RN) (Signed 10-Feb-2018 02:36) Authored: Pressure Injury Shaista Doran) (Signed 09-Feb-2018 16:05) Authored: Admission Risk Screens, Vaccinations, Jose, Pressure Injury Last Updated: 10-Feb-2018 02:36 by Joanna Alcazar (KENN) References: 1. Data Referenced From Patient Profile - Preop v2 02/09/2018 11:39 AM HISTORY AND PHYSICAL Observed: 02/09/2018 Status: COMPLETED Source: UNIVERSITY - SURGERY > 30 DAYS 12:27 PM HOSPITALS REPOSITORY History of Present Illness: History Present Illness: Reason for surgery: bladder cancer HPI: hx of bladder cancer s/p chemo and rads Allergies: Allergies: sulfamethoxazole: Other, Itching sulfa drugs: Unknown Tape - Adhesive, Bandaids, Paper: Unknown Home Medication Review: Home Medications Reviewed: yes Impression/Procedure: Impression and Planned Procedure: cystectomy, ileal conduit, blpnd Vital Signs: Temperature C: 36.6 degrees C Temperature F: 97.8 degrees F Heart Rate: 90 beats per minute Respiratory Rate: 18 breath per minute Blood Pressure Systolic: 113 mm/Hg Blood Pressure Diastolic: 57 mm/Hg Physical Exam: Constitutional: PHYSICAL EXAM General: in no acute distress, non-toxic appearing : no CVA tenderness Head: normocephalic, atraumatic, symmetric Neck: normal range of motion, no thyromegaly Respiratory: non labored breathing Cardiovascular: regular rate and rhythm Abdomen: soft, non-tender, non-distended Extremities: no cyanosis or clubbing Skin: no obvious lesions or rashes Neurologic: cranial nerves intact, normal balance and gait Lymphatics: no peripheral edema Psych: appropriate mood and behavior Respiratory/Thorax: see above Cardiovascular: see above Signatures/Attestation/Certification: Attending Provider Inpatient Certification StatementI certify this patients need for inpatient care based on the above documentation including; the order to admit as inpatient, the anticipated length of stay, diagnosis, problem list and plan of care, and discharge plan. Electronic Signatures: Marcus England (Resident)) (Signed 09-Feb-2018 12:29) Authored: History of Present Illness, Allergies, Home Medication Review, Impression/Procedure, Physical Exam, Signatures/Attestation/Certification Wayne Aguilar) (Signed 09-Feb-2018 14:06) Authored: Signatures/Attestation/Certification Co-Signer: History of Present Illness, Allergies, Home Medication Review, Impression/Procedure, Physical Exam, Signatures/Attestation/Certification Last Updated: 09-Feb-2018 14:06 by Wayne Aguilar) PREOP CHECKLIST Observed: 02/09/2018 Status: UNK Source: [facility] 11:50 AM HOSPITALS REPOSITORY Preop Checklist: Preop Checklist: Arrival [id number] Procedure Typeradical cystectomy NPO [id number] 00:00 ID Band Onyes Allergy Bandyes Consent Signedpending H&P Completepending Anesthesia Assessment Completedyes SCD's Appliedsent to OR Valuables Securedplaced in locker Cardiovascular Assessment: Apicalregular Radial Pulsespalpable Pedal Pulsespalpable Extremitieswarm Respiratory Assessment: Respirationsunlabored regular Air Exchangeequal, good Breath Soundsclear Neurological Assessment: Level of Consciousnessalert, oriented Mobilitymoves all extremities Able to Express Selfyes Age Appropriateyes Emotional Statuscalm Preop Education: Surgical Site Infection Preventionyes Pain Scales and Managementyes Language / Communication: Language / CommunicationEnglish Electronic Signatures: Whit Simpson) (Signed 09-Feb-2018 11:52) Authored: Preop Checklist Last Updated: 09-Feb-2018 11:52 by Whit Simpson (KENN) PATIENT PROFILE - Observed: 02/09/2018 Status: UNK Source: [facility] PREOP V2 11:39 AM HOSPITALS REPOSITORY Profile: Initial Info: How to be AddressedJudy Spoken Language PreferredEnglish Are you currently using the Personal Electronic Health Record or MYUHCAREno Are you interested in learning more about MYUHCARE for the management of your healthnot at this time Stated Reason for Admissionbladder removed Primary Contact Name and NumberJomiki- [phone] Patient Belongingsnone Medications Brought to Hospitalno General Health: Weight in kg83.9 kilogram(s) Weight in inh333.9 pound(s) Weight Methodstated Height in cm162.5 centimeter(s) Height in feet5 feet Height in inches4 inch(es) Height Methodstated BMI (kg/m2)31.772 square meter Patient or Family Member Reaction to Anesthesiano previous reaction Blood Avoidance/Restrictionsnone Previous Transfusion Reactionyes Transfusion Reactionchills Health Mgmt: Symptoms/Conditions Managed at Homecancer; endocrine; cardiovascular Cancer Symptoms/Conditionsbladder Cardiovascular Symptoms/Conditionshypertension Barriers to Managing Healthnone Endocrine Symptoms/Conditionsthyroid disease Relationship/Environ: Lives Withspouse(1) Living Arrangementshouse(1) Resource/Environmental Concernsnone Anticipated Transition [facility] Anticipated at Transitionnone Substance: Current or Former Substance Use never: Cigarette/Tobacco, e-Cigarette/Vaping, Alcohol, Street Drugs Risk Screens: Advance Directive Medicalyes Advance Directive typeLiving Will, Durable Power of [place] [employer] for Healthcare Living Will Availabilityplaced in chart Living Will Placed on [id number] Durable Power of [place] [employer] Operator Availabilityplaced in chart Durable Power of [employer]ting [employer] Operator Placed on [id number] During the past month, have you often been bothered by feeling down, depressed or hopelessno During the past month, have you often had little interest or pleasure in doing thingsno Have you had any thoughts of harming yourselfno Have you had any thoughts of harming anyone elseno Patient is Able to be Assessed for Learningyes Factors Influencing Readiness to Learnacuteness of illness; interest in learning Factors that Impact Ability to Learnnone Devices/Methods Used to Communicatenone Learning Preferencesindividual instruction; written material Cultural Considerationsnone Developmental Considerationsnone Yazidi Considerationsnone Other learner availableno [place] RiskPatient location auto qualifies him/her for HIGH RISK. Are there any cultural, spiritual, christianity practices/values/needs that are important for us to knowno Pain Scalenumerical 0-10 Pain Scale Educationteaching provided Current Pain Level0 = None Acceptable Pain Level2 = Mild Chronic Painno Information Review: Allergies, Home Meds and Significant Events have been Reviewed and Verified with Patient/Familyyes Allergy, Intolerance, Adverse Event: Allergies: sulfamethoxazole: Drug, Other, Itching, Active sulfa drugs: Drug Category, Unknown, Active Tape - Adhesive, Bandaids, Paper: Environment, Unknown, Active Electronic Signatures: Whit Simpson (RN) (Signed 09-Feb-2018 11:40) Authored: Profile, Additional Information Last Updated: 09-Feb-2018 11:40 by Whit Simpson (RN) References: 1. Data Referenced From Patient Profile - Adult v2 01/06/2018 3:54 AM URINALYSIS Collected: 01/31/2018 Status: F Source: [facility]OPE 3:35 [facility] REPOSITORY TYPE CODE TESTS RESULT OUT OF RANGE REFERENCE UNITS LAB COLU(LOIN STRAW,YELLOW C) COLOR YELLOW LAB APPRU(KRISTAN CLEAR NC) APPEARANCE HAZY LAB SPGRU(KRISTAN 1.005 - 1.035 NC) SPECIFIC GRAVITY 1.010 LAB DANELLE(LOINC 5.0 - 8.0 ) pH 7.0 LAB PROTU(KRISTAN NEGATIVE mg/dL NC) PROTEIN Abnormal 100 (2+) LAB GLUCU(KRISTAN NEGATIVE mg/dL NC) GLUCOSE NEGATIVE LAB BLDU(LOIN NEGATIVE C) BLOOD Abnormal MODERATE (2+) LAB KETU(LOIN NEGATIVE mg/dL C) KETONES NEGATIVE LAB BILIU(KRISTAN NEGATIVE NC) BILIRUBIN NEGATIVE LAB UROU2(KRISTAN 0.0 - 1.9 mg/dL NC) UROBILINOGEN <2.0 LAB NITRU(KRISTAN NEGATIVE NC) NITRITE Abnormal POSITIVE LAB LEUKU(KRISTAN NEGATIVE NC) LEUKOCYTE Abnormal ESTERASE LARGE (3+) Performed By: #### UA #### [facility] [address] [place] [address] UA MICROSCOPIC Collected: 01/31/2018 Status: F Source: [facility] 3:35 PM [facility] REPOSITORY TYPE CODE TESTS RESULT OUT OF RANGE REFERENCE UNITS LAB WBCUR(LOIN 0-5 /HPF C) WBC Abnormal 70 LAB WBCLU(LOIN /HPF C) WBC CLUMPS RARE LAB RBCUR(LOIN 0-5 /HPF C) RBC Abnormal 10 LAB EPSQE(LOIN /HPF C) SQUAMOUS EPITH. CELLS 6 LAB EPTRU(LOIN /HPF C) TRANSITIONAL <1 EPITH.CELLS LAB BACUR(LOIN /HPF C) BACTERIA Abnormal 1+ LAB MUCOU(LOIN /LPF C) MUCUS 4+ Performed By: #### UAMIC #### [facility] [address] [place] [address] TYPE + SCREEN Collected: 01/31/2018 Status: F Source: [facility]OPE 3:35 PM HOSPITALS REPOSITORY TYPE CODE TESTS RESULT OUT OF REFERENCE UNITS RANGE LAB ABORH(LOINC ) ABO TYPE O LAB RH(LOINC) RH TYPE POS LAB ABSC(LOINC) ANTIBODY NEG SCREEN Performed By: #### T+S #### [facility] [address] [place] [address] URINE Observed: 01/31/2018 Status: F Source: [facility] CULTURE,BACTERIAL 3:35 HOSPITALS REPOSITORY PATIENT: CLOVER HERNANDEZ LOCATION: [facility]ON#: [id number] : 40 AGE: SEX: F ORDERED BY: WAYNE AGUILAR SOURCE: URINE COLLECTED: 01/31/18 15:35 ANTIBIOTICS AT [facility].: RECEIVED : 01/31/18 19:07 SITE: Clean Catch/Voided R E S U L T S URINE CULTURE,BACTERIAL FINAL 02/02/18 09:21 ISOLATE1 : Pseudomonas aeruginosa >100,000 CFU/ML Organism Ps aerug Antibiotic BP INTRP Aztreonam S Ceftazidime S Ciprofloxacin I Cefepime S Gentamicin I Levofloxacin I Piperc/Tazobact S Tobramycin S S=SUSCEPTIBLE I=INTERMEDIATE R=RESISTANT SDD=SUSCEPTIBLE DOSE DEPENDENT NS=NONSUSCEPTIBLE X=REPORTED IN ERROR Performed By: #### URINC #### [facility] [address] [place] [address] TUMOR BOARD NOTE- Observed: 01/19/2018 Status: UNK Source: [facility] 11:44 AM HOSPITALS REPOSITORY Note: Tumor Board Note CLOVER HERNANDEZ was presented at Tumor Board Conference on 17-Jan-[address] Wayne Aguilar. Presented from [facility]. 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 Recommendations: Med Onc (Possible adjuvant therapy). Surgery (Refer to Dr. Ha Sims to discuss cystectomy). Path demonstrates inv, poorly diff carcinoma, high grade, invading detrusor muscle. Pathology Results: Surgical Pathology [Jan 11 2018 11:59AM] ([id number]) Specimens: SUPERFICAL BLADDER TUMOR /DEEP BLADDER TUMOR /Received in formalin, labeled with the patient's name and hospital number/Received in formalin, labeled with the patient's name and hospital number Name CLOVER HERNANDEZ Pathologist: Lukasz Okeefe MD Date of Procedure: 01/05/2018 Date Received: 01/05/2018 Date Reported 01/11/2018 Submitting Physician: WAYNE AGUILAR MD, MPH Location: [facility] [place] Other External # FINAL DIAGNOSIS A. TISSUE DESIGNATED SUPERFICIAL BLADDER TUMOR, TRANSURETHRAL RESECTION: --SPECIMEN CONSISTS OF CALCIFIED AMORPHOUS DEBRIS, INFLAMMATORY EXUDATE, AND DETACHED UNORIENTED SHEETS AND STRIPS OF EPITHELIUM WITH SQUAMOUS DIFFERENTIATION. A SINGLE SMALL FRAGMENT OF BLADDER MUCOSA IS PRESENT, SHOWING SQUAMOUS METAPLASIA. B. TISSUE DESIGNATED DEEP BLADDER TUMOR, TRANSURETHRAL RESECTION: --INVASIVE POORLY DIFFERENTIATED CARCINOMA, HIGH GRADE. SEE NOTE. Note: Tumor invades detrusor muscle (muscularis propria). Electronically Signed Out By Lukasz Okeefe MD/PHILIP By the signature on this report, the individual or group listed as making the Final Interpretation/Diagnosis certifies that they have reviewed this case. Clinical History: Bladder cancer Specimens Submitted As: A: SUPERFICAL BLADDER TUMOR B: DEEP BLADDER TUMOR Gross Description: A: Received in formalin, labeled with the patient's name and hospital number and A, are multiple irregular fragments of soft, light gan, tissue aggregating to 3.0 x 2.3 x 0.7 cm and weighing 2.3 grams. The specimen is submitted in toto in 2 cassettes. LMP B: Received in formalin, labeled with the patient's name and hospital number and B, are multiple irregular fragments of soft, light gan, tissue aggregating to 2.5 x 2.0 x 1.0 cm and weighing 0.9 grams. The specimen is submitted in toto in 2 cassettes. LMP lmp/01/06/2018 Disclaimer SCC tumor board recommendations represent the consensus opinion of physicians present at a weekly patient care conference. The treating SCC physician is not always present, and many of the physicians formulating the recommendation have not personally seen or examined the patient under discussion. It is understood that the treating SCC physician considers the expertise of the Tumor Board Recommendation in formulating his/her plan for the patient. However, in many situations, based on individualized patient considerations, a different plan is determined by the treating physician to be the optimal medical management. Electronic Signatures: Grace Seay (COOR) (Signed 19-Jan-2018 11:48) Authored: Tumor Board, Disclaimer Last Updated: 19-Jan-2018 11:48 by Grace Seay (COOR) CT UROGRAM Observed: 01/18/2018 Status: F Source: [facility] 8:34 AM [facility] REPOSITORY Exam Date/Time: 01/18/2018 09:40 EDT Reason for Exam: C67.9 BLADDER CA Report STUDY: CT Urogram; 01/18/2018 9:40 am INDICATION: C67.9 BLADDER CA. COMPARISON: 12/05/2017 ACCESSION NUMBER(S): [id number] ORDERING CLINICIAN: Wayne Aguilar TECHNIQUE: CT of the abdomen and pelvis was performed. TRIPLE PHASE TECHNIQUE: Contiguous axial images of the abdomen and pelvis were obtained at 3mm slice thickness before, 110sec and 10min after intravenous contrast administration. 3D volume rendering as well as multiplanar reformats in coronal and sagittal reconstructions at 3 mm slice thickness were performed. 150 ml of contrast Omnipaque 350 were administered intravenously without immediate complication. FINDINGS: LOWER CHEST: Lung bases are clear. ABDOMEN: KIDNEYS AND URETERS: There is normal symmetric enhancement of the bilateral kidneys. There is no urolithiasis. There has been interval development of a mild bilateral hydroureteronephrosis to the level of the ureterovesicular junction. There are few bilateral renal cysts measuring up to 2 cm in the upper pole of the left kidney.. BLADDER: There is redemonstration of extensive anterior bladder wall thickening, mildly asymmetric to the left. Along the anterior bladder wall there is an area of low attenuation with internal calcification. There is extension into the perivesical fat and involvement of the anterior abdominal wall. (Axial image 187). There is there is increased prevascular retroperitoneal fat stranding in the pelvis.. LIVER: There is a stable 15 mm segment 7 low-density lesion which demonstrates peripheral nodular enhancement and fills in on the delayed images consistent with hemangioma. There is mild focal fatty infiltration along the falciform ligament. BILE DUCTS: Exam Date/Time: 01/18/2018 09:40 EDT Report No biliary ductal dilation. GALLBLADDER: Cholelithiasis. PANCREAS: Within normal limits SPLEEN: Within normal limits. ADRENAL GLANDS: Within normal limits. REPRODUCTIVE ORGANS: Status post hysterectomy. BOWEL: Bowel loops are normal in caliber without evidence of obstruction. The appendix is normal. VESSELS: There is no aneurysmal dilatation of the abdominal aorta. There are mild scattered atherosclerotic calcifications of abdominal aorta and branch vessels. The IVC is within normal limits. PERITONEUM/RETROPERITONEUM/LYMPH NODES: No ascites or free air, no fluid collection. The retroperitoneum appears unremarkable. No abdominopelvic lymphadenopathy is present. ABDOMINAL WALL: Within normal limits. BONE AND SOFT TISSUE: Multilevel degenerative changes are noted in the spine. Status post posterior lumbar fusion at L3-L5. Degenerative changes are also noted in the bilateral hips. No suspicious osseous lesion. IMPRESSION: 1. Redemonstration of extensive anterior bladder wall thickening with extravascular extension and involvement of the anterior abdominal wall consistent with known malignancy. 2. Interval development of mild bilateral hydroureteronephrosis possibly related to structures at the ureterovesical junction. 3. Otherwise no findings to suggest intra-abdominal or intrapelvic metastatic disease. FINAL REPORT Dictated: 01/18/2018 11:01 am Tristin Andrews MD Signed (Electronic Signature): 01/18/2018 11:01 am Signed by: Tristin Andrews MD Technologist: BIGG OPERATIVE REPORT - Observed: 01/17/2018 Status: F Source: [facility] 12:30 PM [facility] Medical Records Department [address] [place] [address] Operative Report - Endoscopy MR#: [id number] Acct: [id number] Name: CLOVER HERNANDEZ Rep #: [id number] : 1940 77 From: Marta Covarrubias MD PCP: Yrn Allen MD Status: REG [facility] Patient Name: Clover Hernandez Procedure Date: 01/17/2018 11:29 AM Date of : 1940 Age: 77 Procedure: Colonoscopy Indications: Screening for colorectal malignant neoplasm Providers: Marta Covarrubias MD Referring MD: Marta Covarrubias MD Medicines: Monitored Anesthesia Care Patient Profile: Last Colonoscopy: none. The patient's first colonoscopy is today. Complications: No immediate complications. Procedure: Pre-Anesthesia Assessment: - Prior to the procedure, a History and Physical was performed, and patient medications and allergies were reviewed. The patient's tolerance of previous anesthesia was also reviewed. The risks and benefits of the procedure and the sedation options and risks were discussed with the patient. All questions were answered, and informed consent was obtained. Prior Anticoagulants: The patient has taken no previous anticoagulant or antiplatelet agents. ASA Grade Assessment: II - A patient with mild systemic disease. After reviewing the risks and benefits, the patient was deemed in satisfactory condition to undergo the procedure. After I obtained informed consent, the scope was passed under direct vision. Throughout the procedure, the patient's blood pressure, pulse, and oxygen saturations were monitored continuously. The pediatric colonoscope was introduced through the anus and advanced to the cecum, identified by the appendiceal orifice, IC valve and transillumination. The colonoscopy was somewhat difficult due to significant looping. Successful completion of the procedure was aided by applying abdominal pressure. The patient tolerated the procedure well. The quality of the bowel preparation was good. Scope In: 11:39:33 AM Scope Withdrawal Time 0 hours 18 minutes 57 seconds Scope Out: 12:17:28 PM Total Procedure Duration Time 0 hours 37 minutes 55 seconds Findings: A less than 5 mm polyp was found in the ascending colon. The polyp was sessile. The polyp was removed with a cold biopsy forceps. Resection and retrieval were complete. A 4 to 7 mm polyp was found in the descending colon. The polyp was semi-sessile. The polyp was removed with a hot snare. Resection and retrieval were complete. Multiple small-mouthed diverticula were found in the sigmoid colon and ascending colon. Hemorrhoids were found on perianal exam. Impression: - One less than 5 mm polyp in the ascending colon, removed with a cold biopsy forceps. Resected and retrieved. - One 4 to 7 mm polyp in the descending colon, removed with a hot snare. Resected and retrieved. - Diverticulosis in the sigmoid colon and in the ascending colon. - Hemorrhoids found on perianal exam. Recommendation: - Discharge patient to home. - High fiber diet. - Continue present medications. - Await pathology results. - Repeat colonoscopy in 3 - 5 years for surveillance based on pathology results. Procedure Code(s): --- Professional --- 47047, Colonoscopy, flexible; with removal of tumor(s), polyp(s), or other lesion(s) by snare technique 48528, 59, Colonoscopy, flexible; with biopsy, single or multiple Diagnosis Code(s): --- Professional --- Z12.11, Encounter for screening for malignant neoplasm of colon D12.2, Benign neoplasm of ascending colon D12.4, Benign neoplasm of descending colon K64.9, Unspecified hemorrhoids K57.30, Diverticulosis of large intestine without perforation or abscess without bleeding CPT copyright 2017 [employer]. All rights reserved. The codes documented in this report are preliminary and upon cake decorator review may be revised to meet current compliance requirements. MD Marta Kearns MD 01/17/2018 12:30:49 PM This report has been signed electronically. Number of Addenda: 0 Note Initiated On: 01/17/2018 11:29 AM 01/17/18 1230 Date Marta Covarrubias MD Cosigner Signature: Date (if indicated) CC: Yrn Allen MD; Marta Covarrubias MD Date Dictated: 01/17/18 112 Date Transcribed: Plant Etiologist: ANTONIO Signed COLON BIOPSY (CHOOSE Observed: 01/17/2018 Status: F Source: [facility]) 12:00 AM [facility] Patient: CLOVER HERNANDEZ : 1940 (77/F) Acct Num: [id number] Phys: Satish STRONG,Marta Unit Num: [id number] Loc: EN Specimen: [id number] Received: 01/17/18 - 1449 Spec Type: COLON BX TISSUES 1 TISSUES: A. Ascending colon B. Descending colon GROSS DESCRIPTION A - Received in fixative is one container labeled with the patient's name and designated ascending colon polyp biopsy. The specimen consists of one irregular fragment of light gan soft tissue that measures 0.3 x 0.3 x 0.1 cm. The specimen is totally submitted in one cassette. B - Received in fixative is one container labeled with the patient's name and designated descending colon polyp. The specimen consists of a piece of gan- pink polyp measuring 0.5 x 0.5 x 0.3 cm. The specimen is totally submitted in one cassette. / SJ:anai 01/17/18 TC:1 CPT: 21476 x2 HEADER OPERATION: Colonoscopy (MAC) PRE-OP DIAGNOSIS: Screening TISSUE SUBMITTED: A - Ascending colon polyp biopsy, B - Descending colon polyp MICROSCOPIC DESCRIPTION Slides are reviewed. MICROSCOPIC DIAGNOSIS A. Ascending colon polyp, biopsy: Tubular adenoma. B. Descending colon polyp, biopsy: Tubular adenoma. SJ:anai 01/18/18 Signed Gio Silva 01/18/18 <signature on file> Performed By: #### PCOLBX #### [facility] [address] [place], [address] OFFICE VISIT (UROLOGY) Observed: 01/13/2018 Status: UNK Source: [facility] 10:31 AM [facility]PITALS REPOSITORY Chief Complaint remove catheter History of Present Illness 77 year old female presents to the clinic for a trial of void after TURBT with dr. Aguilar on 01/05/18. She finshed a course of aumgentin a couple of days ago. Urine has remained about the same - denies blood. Background history- was referred to Dr. Aguilar from [facility] for a possible bladder tumor recurrence. Approximately, one year ago, she received chemoradiation for muscle-invasive bladder cancer with squamous differentiation. has been constipated. Taking myrbetriq and vesicare prior to recent surgery Review of Systems Constitutional: no fever, no chills and not feeling poorly. Eyes: no eyesight problems. ENT: no hearing loss, no nosebleeds and no sore throat. Cardiovascular: no chest pain, no palpitations and no lower extremity edema. Respiratory: no shortness of breath, no wheezing, no cough and no shortness of breath during exertion. Gastrointestinal: nausea, but no abdominal pain, no constipation, no heartburn, no diarrhea, no vomiting and no blood in stools. Genitourinary: no dysuria, no incontinence, no pelvic pain, no vaginal discharge and normal micturition. Musculoskeletal: no arthralgias and no gait abnormality. Integumentary: no skin lesions, no change in a mole and no skin wound. Neurological: no confusion, no dizziness, no fainting and no difficulty walking. Psychiatric: anxiety and depression, but not suicidal. Active Problems Acute UTI (599.0) (N39.0) Urothelial carcinoma of bladder (188.9) (C67.9) Allergies sulfa Itching; skin peeling; Recorded By: Elma Boogie; 12/20/2017 9:04:40 AM Current Meds Colace 100 MG Oral Capsule; Therapy: (Recorded:13Jan2018) to Recorded Dispense: 0 Days ; #: Sufficient CAPS; Refill: 0; MARTHA = N; Record; Last Updated By: Светлана Harrison; 01/13/2018 9:50:19 AM Levothyroxine Sodium 100 MCG Oral Tablet; Therapy: (Recorded:13Jan2018) to Recorded Dispense: 0 Days ; #: Sufficient TABS; Refill: 0; MARTHA = N; Record; Last Updated By: Светлана Harrison; 01/13/2018 9:50:19 AM Myrbetriq 50 MG Oral Tablet Extended Release 24 Hour; Therapy: (Recorded:13Jan2018) to Recorded Dispense: 0 Days ; #: Sufficient TB24; Refill: 0; MARTHA = N; Record; Last Updated By: Светлана Harrison; 01/13/2018 9:50:19 AM OxyCODONE HCl - 5 MG Oral Capsule; Therapy: (Recorded:13Jan2018) to Recorded Dispense: 0 Days ; #: Sufficient CAPS; Refill: 0; MARTHA = N; Record; Last Updated By: Светлана Harrison; 01/13/2018 9:50:19 AM TraMADol HCl - 50 MG Oral Tablet; Therapy: (Recorded:13Jan2018) to Recorded Dispense: 0 Days ; #: Sufficient TABS; Refill: 0; MARTHA = N; Record; Last Updated By: Светлана Harrison; 01/13/2018 9:50:19 AM VESIcare 10 MG Oral Tablet; Therapy: (Recorded:13Jan2018) to Recorded Dispense: 0 Days ; #: Sufficient TABS; Refill: 0; MARTHA = N; Record; Last Updated By: Светлана Harrison; 01/13/2018 9:50:19 AM Vitals Vital Signs Recorded: 13Jan2018 09:31AM Heart Rate86 Dyepepei857 Agxearcgj31 Physical Exam Alert and oriented x 3 sclera clear Moist mucous membranes No acute distress Normal respirations No focal neurological deficits Normal ambulation Results/Data IO Trial [id number] 10:30AMSamara Hallman Test NameResultFlagReference IO Amount NS instilled in vnehmrq20 mlm IO Amount left in bladder after voiding0 mlm IO PassedYes Diagnoses/Problems Acute UTI (599.0) (N39.0) Urothelial carcinoma of bladder (188.9) (C67.9) Orders Acute UTI Start: Amoxicillin-Pot Clavulanate 500-125 MG Oral Tablet (Augmentin); TAKE 1 TABLET Every twelve hours Rx By: Samara Hallman; Dispense: 7 Days ; #:14 Tablet; Refill: 0;For: Acute UTI; MARTHA = N; Verified Transmission to [employer] [facility] #[facility]; Last Updated By: System, [email or web address]; 01/13/2018 10:18:27 AM Urothelial carcinoma of bladder IO Trial Void; Status:Resulted - Requires Verification; Done: 13Jan2018 10:30AM Performed:In Office; Due:13Apr2018;Ordered; For:Urothelial carcinoma of bladder; Ordered By:Samara Hallman; Patient Discussion/Summary 77 year old female Status post TURBT with Dr. Aguilar on Will be getting a colonoscopy next week Scheduled for a CT scan at [facility] Plan for a cystectomy recommendations: 1) Elma will let you know when the CT scan is scheduled for 2) Dr. Aguilar will be coordinating surgery date for you and demand planning analyst will give you a call 3) Augmentin 500 mg sent through to pharmacy - take twice daily x 7 days Urine will be sent for a culture. 4) Stop the Vesicare. End of Encounter Meds Amoxicillin-Pot Clavulanate 500-125 MG Oral Tablet (Augmentin); TAKE 1 TABLET Every twelve hours; Therapy: 13Jan2018 to (Evaluate:20Jan2018) Requested for: 13Jan2018; Last Rx:13Jan2018 Ordered Colace 100 MG Oral Capsule; Therapy: (Recorded:13Jan2018) to Recorded Levothyroxine Sodium 100 MCG Oral Tablet; Therapy: (Recorded:13Jan2018) to Recorded Myrbetriq 50 MG Oral Tablet Extended Release 24 Hour; Therapy: (Recorded:13Jan2018) to Recorded OxyCODONE HCl - 5 MG Oral Capsule; Therapy: (Recorded:13Jan2018) to Recorded TraMADol HCl - 50 MG Oral Tablet; Therapy: (Recorded:13Jan2018) to Recorded VESIcare 10 MG Oral Tablet; Therapy: (Recorded:13Jan2018) to Recorded Signatures Electronically signed by : RHIANNA Stephens; Jan 13 2018 10:31AM EST (Author) SURGERY VISIT REPORT Observed: 01/09/2018 Status: F Source: [facility] 3:11 PM [facility] [address] [place] [address] OFFICE VISIT Date of Service: 01/09/18 MR#: [id number] Acct: [id number] Name: CLOVER HERNANDEZ Rep #: [id number] : 1940 Provider: Marta Covarrubias MD Age/Sex: 77/F Location: [facility] Status: Signed Intake Vital Signs01/09/18 Height 5 ft 5 in 01/09/18 Weight: 185 lb 01/09/18 Body Mass Index (BMI) 30.7 Intake Visit Reasons: NEED C-SCOPE Station Worker Required: No Is patient in pain?: Yes (abdomen) Allergies Sulfa (Sulfonamide Antibiotics) Allergy (Intermediate, Verified 01/09/18 14:27) Rash adhesive tape Adverse Reaction (Mild, Verified 01/09/18 14:27) Rash bee venom protein (honey bee) Adverse Reaction (Verified 01/09/18 14:27) Swelling Medications Hydrochlorothiazide 25 mg PO DAILY 11/22/15 [History Confirmed 01/09/18] traMADol [Ultram] 50 mg PO BID 11/22/15 [History Confirmed 01/09/18] Calcium Carbonate [Calcium] 600 mg PO DAILY 05/14/16 [History Confirmed 01/09/18] Cranberry Fruit Extract [Cranberry] 8,400 mg PO DAILY 05/14/16 [History Confirmed 01/09/18] Cyanocobalamin [Vitamin B12] 1,000 mcg PO DAILY@0800 05/14/16 [History Confirmed 01/09/18] Levothyroxine [Synthroid] 100 mcg PO DAILY 05/14/16 [History Confirmed 01/09/18] Multivitamins,Therapeutic [Multivitamin] 1 tab PO DAILY 05/14/16 [History Confirmed 01/09/18] Lidocaine/Prilocaine [Lidocaine-Prilocaine Cream] 30 gm TP PRN PRN 06/22/16 [History Confirmed 01/09/18] Ibuprofen [Advil] 200 mg PO BID PRN 07/06/16 [History Confirmed 01/09/18] Ginseng 100 mg PO DAILY 08/10/16 [History Confirmed 01/09/18] Potassium (Otc) [Potassium OTC] 99 mg PO DAILY 05/26/17 [History Confirmed 01/09/18] Solifenacin Succinate [Vesicare] 10 mg PO DAILY 11/24/17 [History Confirmed 01/09/18] [facility] Medical History Encounter for adjustment or management of vascular access device (Acute) Bladder carcinoma (Resolved) Bladder cancer (Acute) History of bladder cancer (Chronic) Hematuria, microscopic (Acute) History of hysterectomy (Acute) Hypothyroidism (Acute) Incontinence (Acute) Recurrent UTI (Acute) UTI (urinary tract infection) (Acute) Urinary frequency (Acute) Hypertension (Chronic) Surgical History S/P cystoscopy (Acute) s/p port placement (Acute) History of back surgery (Acute) History of renal stent (Acute) History of tonsillectomy (Acute) Family History Mother Hypertension Arthritis Father Metastatic cancer Social History Smoking Status: Former smoker alcohol intake: current alcohol intake frequency: holidays/special occasions only HPI HPI HPI: CLOVER HERNANDEZ, is a 77 F who presents to the office today for screening colonoscopy. Patient's has a known history of bladder cancer. She did have a cystoscopy done by Dr. Aguilar at who is planning on scheduling a CAT scan and also requested a screening colonoscopy prior to surgery to remove the bladder per patient's family. Patient has never had a colonoscopy, denies any family history of colon cancer. States she has bowel movements about once every 3 days but she does need to manually disimpact due to the hard stool. Denies any nausea or vomiting or any upper abdominal pain only has occasional lower abdominal pain with her bladder spasms. Patient has tried stool softener in the past however per the patient's family she only took them for a couple days and said they did not work. ROS General General: Yes weight change, fatigue and weakness; no colon cancer or breast cancer Gastro Gastrointestinal: No abdominal pain, No nausea or vomiting, No diarrhea, Yes constipation, No blood in stool, No acid reflux, Yes hemorrhoids, No ulcers, No gallbladder problem, No black,tarry stools Neuro Neurologic: Yes weakness Exam Const General: cooperative, comfortable, no acute distress HENMT Head: atraumatic Chest Other: Right upper chest port in place incision well-healed no signs of infection GI Inspection: non-distended Palpation: soft, no guarding, nontender Assessment AND Plan Problems 1. Encounter for screening colonoscopy Z12.11 2. Bladder carcinoma C67.9 Plan I have discussed the above with the patient. I have offered the patient colonoscopy for evaluation. I have explained the risks/benefits of the procedure and described the procedure. I have discussed the risks with the patient, including but not limited to: infection, bleeding, perforation of the GI tract requiring emergency surgery, inability to complete the procedure, injury to any internal organs, complications of anesthesia, etc. - the patient understands and agrees to proceed. I have answered all the patient's questions to the patient's satisfaction and the patient has no further questions. The patient has been given instructions for the colon cleansing preparation. 2 days of clears, magnesium citrate the first day and MiraLAX Dulcolax split second day. Marta Covarrubias M.D. Pager: [phone] [facility] [address] [place] [address], [address] [place] [address] Office: [phone] Orders Orders: Plan Detail Follow Up Will schedule colonoscopy (Plan for November 17) Coding Level of Care Code Off vis,new,level 3 Diagnoses Encounter for screening colonoscopy Z12.11 Bladder carcinoma C67.9 01/09/18 1511 <Electronically signed by Marta Covarrubias MD> Date Marta Covarrubias MD Cosigner Signature: Date (if applicable) CC: Murtaza Mcgill MD; Yrn Allen MD CONSULT-ONCOLOGY Observed: 01/06/2018 Status: COMPLETED Source: [facility] 3:25 PM HOSPITALS REPOSITORY Service: Service: Oncology Consult: Consult requested by (Attending Name): Dr. Wayne Aguilar Reason: Recurrent Bladder cancer History of Present Illness: Admission Reason: Elective TURBT HPI: 77 yr old female with PMH of Hypothyroidism, HTN and Bladder cancer diagnosed in 04/2016- s/p chemoRT was on surveillance with recurrent bladder cancer. Limited details available( No notes or imaging in system) and unable to reach Primary onc. Patient initially had urinary urgency as well as overflow incontinence in 03/2016. Was treated for recurrent UTI. Subsequently found to have atypical cells in urine and CT concerning for bladder mass. Had TURBT and was found to have muscle invasive bladder cancer with squamous differentiation. She got possibly 4 cycles of Cisplatin with XRT as she refused cystectomy at that time. Her first surveillance scan was in 10/11 per patient and was reported cancer free. Subsequently was doing well till a month ago when she noticed again urinary urgency and worsening incontinence. Two episodes of mild hematuria. No abdominal pain,fever, chills. No loss of appetite or weight. No back pain. No bowel incontinence or blood in stools. Found to have UTI with rare bacteria and was referred to ID. Was started on Augmentin. She subsequently had rpt UA which showed atypical cells and per Outpt Urology notes CT abd/pelvis concerning for tumor recurrence. Patient was admitted for elective TURBT. She is currently s/p TURBT on 01/05/18. Per operative report Necrotic tumor in upper bladder and left uretheral orifice not visualised. Tumor was not completely resected as plan for radical cystectomy. Path pending. Oncology consulted for further recommendations. Today- Patient has mild lower abdominal soreness. Ongoing intermittent bladder spasms. No fever, chills or hematuria. Has chronic b/l leg weakness since her surgery for Lumbar spinal stenosis s/p laminectomy and fixation in 2004. Uses walker for ambulation. Limited mobility within home. Denies CP, palpitations or SOB with walking. Had h/o falls-2/2 legs giving away. Last approximately 2 months ago. 14 point ROS otherwise negative. PMH: HTN- was recently taken off Lisinopril and HCTZ for hyponatremia. Hypothyroidism Bladder cancer as above. PSH: Lumbar spinal stenosis s/p laminectomy in 2004 TURBT in 05/14 Family Hx: Father had bladder cancer at 78 yrs of age-had ileal conduit No other h/o malignancy Social hx: Smoker in her teens. Quit since then. Occasional alcohol use. Denies Illicit drug use. Lives with her . Allergies: sulfa drugs: Unknown Objective: Objective Information: T PRBPSpO2 [id number]% Date/Time01/06 15: 15: 15: 15: 15:36 Range(36C - 36.7C ) (74 - 85 ) (16 - 19 ) (95 - 137 )/ (45 - 64 ) (93% - 99% ) Physical Exam: Constitutional: AAOX3. Not in distress Eyes: B/l DAMON.EOMI ENMT: No oral ulcers. Head/Neck: No JVD/thyromegaly Respiratory/Thorax: B/l AE equal. No added sounds. Cardiovascular: S1s2+. No murmur/rub/gallop Gastrointestinal: Soft, Non tender. BS+ Extremities: No pedal edema Neurological: AAOx3. power 4/5 b/l LE Lymphatic: No cervical or axillary LAD Psychological: Cooperative Skin: No rash/petechiae Medications: Medications: Continuous Medications 1. Lactated Ringers Infusion: 1000 mL IntraVenous <Continuous> Scheduled Medications 1. Docusate: 100 mg Oral 2 Times a Day 2. Heparin SubCutaneous: 5000 unit(s) SubCutaneous Every 8 Hours 3. Iopamidol 76% (ISOVUE 370) -Radiology Contrast): 125.85 mL IntraVenous Push Once 4. Levothyroxine: 100 microgram(s) Oral Daily 5. Magnesium Hydroxide Oral Liquid CONCENTRATE: 10 mL Oral Every 24 Hours 6. Polyethylene Glycol: 17 gram(s) Oral Daily PRN Medications 1. Acetaminophen: 650 mg Oral Every 4 Hours 2. Ondansetron Injectable: 4 mg IntraVenous Push Every 6 Hours 3. oxyCODONE Immediate Release: 5 mg Oral Every 4 Hours 4. oxyCODONE Immediate Release: 10 mg Oral Every 4 Hours 5. Sennosides: 1 tablet(s) Oral 2 Times a Day Recent Lab Results: Results: I have reviewed these laboratory results: Complete Blood Count 06-Jan-2018 08:35:00 ResultValue White Blood Cell Count 10.1 Nucleated Erythrocyte Count 0.0 Red Blood Cell Count 3.41 L HGB 9.9 L HCT 32.7 L MCV 96 MCHC 30.3 L PLT 276 RDW-CV 17.1 H Basic Metabolic Panel 06-Jan-2018 08:35:00 ResultValue Glucose, Serum 93 NA 134 L K 4.3 CL 99 Bicarbonate, Serum 26 Anion Gap, Serum 13 BUN 13 CREAT 0.84 GFR-Non >60 GFR- >60 Calcium, Serum 8.8 Assessment: 77 yr old female with PMH of HTN, Hypothyroidism, Recurrent UTIs with muscle invasive Bladder ca with squamous differentiation diagnosed in 04/2016 s/p TURBT and chemoradiation with cisplatin. Per patient had CT scan in 09/2016 and was cancer free since then. Not sure when she was staged last. Admitted for elective TURBT for recurrence of her bladder cancer. Had TURBT on 01/05/18- Per operative report tumor necrotic and not resected completely. Path pending. Plan for cystectomy. Patient ECOG PFS 2. Recommend: Staging CT chest, abdomen and Pelvis prior to cystectomy. If has metastatic disease will consider palliative chemotherapy vs Immunotherapy. patient also verbalised interest in clinical trial available here at [facility]. Patient following with Dr. Murtaza Mcgill (med onc) at [place]. Unable to reach him but per his office she has a follow up appointment with him on 02/23/18 at [address] she will call our oncology office to schedule follow up with to discuss her treatment options. Signature/Cosignature/Attestation: Attending AttestationI saw and evaluated the patient. I personally obtained the owusu and critical portions of the history and physical exam or was physically present for owusu and critical portions performed by the resident/fellow. I reviewed the resident/fellows documentation and discussed the patient with the resident/fellow. I agree with the resident/fellows medical decision making as documented in the residents note. I personally evaluated the patient (as noted in the above attestation) on 06-Jan-2018 Comments/ Additional Findings In addition, chart was reviewed, family history was reviewed and not pertinent to this admission. A 12 point review of systems was obtained and negative except as stated in HPI. Imaging was reviewed and agree with radiologist finding. Agree with [facility] salvage cystectomy Electronic Signatures: Rudi Torres) (Signed 23-Jan-2018 10:43) Authored: Signature/Cosignature/Attestation Co-Signer: Service, History of Present Illness, Allergies, Objective, Assessment/Recommendations, Signature/Cosignature/Attestation Kari Foley (Fellow)) (Signed 06-Jan-2018 18:15) Authored: Service, History of Present Illness, Allergies, Objective, Assessment/Recommendations, Signature/Cosignature/Attestation Last Updated: 23-Jan-2018 10:43 by Rudi Torres) CONSULT-MEDICINE Observed: 01/06/2018 Status: COMPLETED Source: [facility] 11:52 AM [facility] REPOSITORY Service: Service: Medicine Consult: Consult requested by (Attending Name): Dr. Aguilar Reason: pre op evaluation History of Present Illness: Admission Reason: recurrent bladder cancer HPI: 77 yo F with PMH of HTN, hypothyroidism, and bladder cancer was admitted for recurrence of bladder cancer. She is currently pod #1 TURBT. Pt was evaluated at the pre op clinic on 12/27/17 for the TURBT on 01/05/18. Medicine was consulted for pre operative evaluation for cystectomy. Patient is currently undergoing further testing to see if the cancer has metastasized. Patient is also pending evaluation by GI for constipation. Cystectomy most likely in 1-2 weeks as per urology team. Patient is feeling well this morning. Denies any change since the surgery. Patient notes that she was taking HCTZ, which was stopped prior to surgery due to hyponatremia. PMH HTN bladder cancer s/p chemo depression hypothyroidism anemia osteoarthritis spinal stenosis -lumbar PSH hysterectomy salphingooophorectomy spine surgery - laminectomy cystoscopy TURBT Anesthesia Hx no complications SH former smoker occasional drinker denies illicit drug use FH father - bladder cancer MEDS amoxicillin calcium cranberry ginseng hydrochlorothiazide stopped prior to surgery and has not been resumed ibuprofen levothyroxine 100 mcg levsin myrbetriq potassium gluconate probiotics tramadol vesicare vitamin b12 Allergies: sulfa drugs: Unknown Objective: Objective Information: T PRBPSpO2 [id number]% Date/Time01/06 11: 11: 11: 11: 11:46 Range(36C - 36.7C ) (74 - 85 ) (16 - 18 ) (95 - 137 )/ (45 - 64 ) (93% - 99% ) Pain at Rest reported at 01/06 2:17: 4 Physical Exam: Constitutional: obese, NAD, laying comfortably in bed Head/Neck: normocephalic, atraumatic Respiratory/Thorax: CTAB, no wheezes, rales, or rhonchi Cardiovascular: RRR, no murmurs, gallops, or rubs Gastrointestinal: obese, soft, non distended, no tenderness Extremities: no peripheral edema noted Neurological: alert and oriented x3, intact senses, motor, response and reflexes, normal strength, no focal deficit Psychological: Appropriate mood and behavior Skin: pink, dry, warm Medications: Medications: Continuous Medications 1. Lactated Ringers Infusion: 1000 mL IntraVenous <Continuous> Scheduled Medications 1. Docusate: 100 mg Oral 2 Times a Day 2. Heparin SubCutaneous: 5000 unit(s) SubCutaneous Every 8 Hours 3. Iopamidol 76% (ISOVUE 370) -Radiology Contrast): 125.85 mL IntraVenous Push Once 4. Levothyroxine: 100 microgram(s) Oral Daily 5. Magnesium Hydroxide Oral Liquid CONCENTRATE: 10 mL Oral Every 24 Hours 6. Polyethylene Glycol: 17 gram(s) Oral Daily PRN Medications 1. Acetaminophen: 650 mg Oral Every 4 Hours 2. Ondansetron Injectable: 4 mg IntraVenous Push Every 6 Hours 3. oxyCODONE Immediate Release: 5 mg Oral Every 4 Hours 4. oxyCODONE Immediate Release: 10 mg Oral Every 4 Hours 5. Sennosides: 1 tablet(s) Oral 2 Times a Day Recent Lab Results: Results: I have reviewed these laboratory results: Complete Blood Count 06-Jan-2018 08:35:00 ResultValue White Blood Cell Count 10.1 Nucleated Erythrocyte Count 0.0 Red Blood Cell Count 3.41 L HGB 9.9 L HCT 32.7 L MCV 96 MCHC 30.3 L PLT 276 RDW-CV 17.1 H Basic Metabolic Panel 06-Jan-2018 08:35:00 ResultValue Glucose, Serum 93 NA 134 L K 4.3 CL 99 Bicarbonate, Serum 26 Anion Gap, Serum 13 BUN 13 CREAT 0.84 GFR-Non >60 GFR- >60 Calcium, Serum 8.8 Assessment: 77 yo F with PMH of HTN, hypothyroidism, and bladder cancer was admitted for recurrence of bladder cancer. She is currently pod #1 TURBT. Pt was evaluated at the pre op clinic on 12/27/17 for the TURBT on 01/05/18. Medicine was consulted for pre operative evaluation for cystectomy. Patient has known MET <4 poor activity status. Stop Bang score of 2 - low risk for LIZA. RSRI score of 0 with 0.4% MACE. Patient does not have any significant changes since the last surgery. Her H/H is stable and her hyponatremia is improving at this time. Patient is stable to undergo surgery at this time. Thank you for the consult. Patient was seen and discussed with Dr. Zavaleta. Please page [phone] for further questions. Will sign off. Jeanie Cruz DO CA-1/PGY-2 Department of Anesthesiology and Perioperative Medicine Signature/Cosignature/Attestation: Provider/Team Contact Info-Pager [phone] Attending AttestationI saw and evaluated the patient. I personally obtained the owusu and critical portions of the history and physical exam or was physically present for owusu and critical portions performed by the resident/fellow. I reviewed the resident/fellows documentation and discussed the patient with the resident/fellow. I agree with the resident/fellows medical decision making as documented in the resident/fellows note with the exception/addition of the following: I personally evaluated the patient (as noted in the above attestation) on 06-Jan-2018 Comments/ Additional Findings was seen and examined today on rounds with the housestaff. Her was present . I agree with the recommendations in the above note. Electronic Signatures: Jeanie Cruz ( (Resident)) (Signed 06-Jan-2018 12:07) Authored: Service, History of Present Illness, Allergies, Objective, Assessment/Recommendations, Signature/Cosignature/Attestation Tarun Zavaleta) (Signed 06-Jan-2018 17:20) Authored: Signature/Cosignature/Attestation Last Updated: 06-Jan-2018 17:20 by Tarun Zavaleta) CONSULT-GASTROENTEROLOGY Observed: Status: COMPLETED Source: [facility] 01/06/2018 9:44 AM HOSPITALS REPOSITORY Service: Service: Gastroenterology Consult: Consult requested by (Attending Name): Lizzie Reason: constipation History of Present Illness: Admission Reason: scheduled admit for TURBT HPI: Mrs. 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 GI consulted for constipation. History obtained from patient and chart. Per pt, she has a long-standing history of constipation for years that precedes her bladder cancer diagnosis and chemotherapy/radiation. BMs occur 2-3x/day regularly, however are hard and require manual expression to evacuate her bowels. She occasionally has blood with BMs that she attributes to her hemorrhoids. Denies any bowel incontinence. Denies any abdominal pain, nausea or vomiting. Appetite is moderate, endorses a couple pounds of weight loss. Never had a colonoscopy. No family history of CRC. She has tried taking a stool softener before (colace daily) and miralax daily in the past but these regimens did not work. She is currently taking nothing at home for constipation, takes tramadol for pain. Reports that she is arranging for her first colonoscopy closer to home ([place]) with a general surgeon there. On review of [facility] records, pt had a CT on 12/05 at [place] that noted a normal colon, stomach, and small bowel. Last TSH 0.97 in September 2017. On arrival, HDS. No labs or imaging has been obtained this admission. She was started on both oxycodone oral and tramadol (has taken one of each since admission). Bowel regimen on 01/05 was docusate twice a day and senna 1 twice a day. Milk of mag 10 mg daily and miralax 17 mg daily was added today, pt has yet to receive either dose. Admitted extended observation and pending CT chest + CT urogram to assess for metastatic disease. Primary team discharging patient today. Prev endoscopic history: Never Pmhx/Psurghx: T2Nx urothelial carcinoma of the bladder with squamous differentiation dx in 2017 s/p chemotherapy and radiation with subsequent remissions c/b recurrence most recently s/p TURBT on 01/05 hemorrhoids hypothyroidism hysterectomy Meds: vesicare tramadol levothyroxine amoxicillin Fhx: negative for GI malignancies or IBD Shx: denies alcohol, tobacco, or illicit drug use All: sulfa ROS: 15 point ROS performed and is otherwise negative for complaint except as noted above. Review Family/Social History and ROS: Constitutional: POSITIVE: Weight Loss Eyes: NEGATIVE: Drainage ENMT: NEGATIVE: Mouth Pain Respiratory: NEGATIVE: Hemoptysis Cardiac: NEGATIVE: Palpitations Gastrointestinal: POSITIVE: Constipation Genitourinary: POSITIVE: Flank Pain Musculoskeletal: NEGATIVE: Swelling Neurological: NEGATIVE: Headache Psychiatric: NEGATIVE: Anxiety Skin: NEGATIVE: Rash Endocrine: NEGATIVE: Cold Intolerance Hematologic/Lymph: NEGATIVE: Bruising Allergic/Immunologic: NEGATIVE: Itching Allergies: sulfa drugs: Unknown Objective: Objective Information: T PRBPSpO2 [id number]/4598% Date/Time01/06 7: 7: 7: 7: 7:15 Range(36C - 36.7C ) (74 - 85 ) (16 - 18 ) (95 - 112 )/ (45 - 50 ) (98% - 99% ) Physical Exam: Constitutional: Gen: aaox3, NAD Head/Neck: ATNC Eyes: anicteric sclera ENMT: MMM Pulm: CTA in the ant lung stone b/l, normal respiratory efforts, +mediport CV: RRR, S1 and S2 present GI: soft, nontender, nondistended, no rebound or guarding, +BS Ext: 2+ distal pulses, 1+ PE in the right extremitiy Neuro: no gross focal deficits Skin: nonjaundiced, no lesions appreciated Medications: Medications: Continuous Medications 1. Lactated Ringers Infusion: 1000 mL IntraVenous <Continuous> Scheduled Medications 1. Docusate: 100 mg Oral 2 Times a Day 2. Heparin SubCutaneous: 5000 unit(s) SubCutaneous Every 8 Hours 3. Iopamidol 76% (ISOVUE 370) -Radiology Contrast): 125.85 mL IntraVenous Push Once 4. Levothyroxine: 100 microgram(s) Oral Daily 5. Magnesium Hydroxide Oral Liquid CONCENTRATE: 10 mL Oral Every 24 Hours 6. Polyethylene Glycol: 17 gram(s) Oral Daily PRN Medications 1. Acetaminophen: 650 mg Oral Every 4 Hours 2. Ondansetron Injectable: 4 mg IntraVenous Push Every 6 Hours 3. oxyCODONE Immediate Release: 5 mg Oral Every 4 Hours 4. oxyCODONE Immediate Release: 10 mg Oral Every 4 Hours 5. Sennosides: 1 tablet(s) Oral 2 Times a Day Recent Lab Results: Results: I have reviewed these laboratory results: Complete Blood Count 06-Jan-2018 08:35:00 ResultValue White Blood Cell Count 10.1 Nucleated Erythrocyte Count 0.0 Red Blood Cell Count 3.41 L HGB 9.9 L HCT 32.7 L MCV 96 MCHC 30.3 L PLT 276 RDW-CV 17.1 H Basic Metabolic Panel 06-Jan-2018 08:35:00 ResultValue Glucose, Serum 93 NA 134 L K 4.3 CL 99 Bicarbonate, Serum 26 Anion Gap, Serum 13 BUN 13 CREAT 0.84 GFR-Non >60 GFR- >60 Calcium, Serum 8.8 Assessment: Mrs. 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 GI consulted for long-standing constipation that has been present for years often requiring manual pressure for evacuation. Never had a colonoscopy. No family history of CRC. Currently HDS with benign exam. Given the patient's history of requiring manual pressure for bowel evacuation, this raises the clinical suspicion for possible pelvic floor dysfunction, which unfortunately does not respond to laxatives. Anorectal manometry on an elective outpatient basis would be the next step in evaluating and establishing this diagnosis. After discussion with the patient and family, they would like to pursue this work-up closer to home in [place] and after her colonoscopy and tentative surgery. Recs: --recommend anorectal manometry to evaluate for possible pelvic floor dysfunction; this can be done on an elective outpatient basis; family would like pursue this work-up closer to home in [place]; unclear if available there --please arrange for GI f/u on discharge; pt/family are arranging to have colonoscopy done at [place] by a general surgeon --laxatives unlikely to be of benefit --recs communicated to primary team - primary team already planning on discharging patient to home today GI will no longer actively follow. Please do not hesitate to page [phone] with any questions or concerns between the hours of 7am-5pm on weekdays. On weekends, after-hours and holidays, please page [phone] to reach the GI fellow on-call with any urgent questions. Patient is seen and examined with Dr. Torres Signature/Cosignature/Attestation: Attending AttestationI saw and evaluated the patient. I personally obtained the owusu and critical portions of the history and physical exam or was physically present for owusu and critical portions performed by the resident/fellow. I reviewed the resident/fellows documentation and discussed the patient with the resident/fellow. I agree with the resident/fellows medical decision making as documented in the resident/fellows note with the exception/addition of the following: I personally evaluated the patient (as noted in the above attestation) on 06-Jan-2018 Comments/ Additional Findings See comments above. Electronic Signatures: Roxana Hargrove) (Signed 06-Jan-2018 17:49) Authored: Service, History of Present Illness, Review Family/Social History and ROS, Allergies, Objective, Assessment/Recommendations, Signature/Cosignature/Attestation Felix Torres) (Signed 07-Jan-2018 07:28) Authored: History of Present Illness, Assessment/Recommendations, Signature/Cosignature/Attestation Co-Signer: Assessment/Recommendations, Signature/Cosignature/Attestation Last Updated: 07-Jan-2018 07:28 by Felix Torres) CBC Collected: 01/06/2018 Status: F Source: [facility] 8:35 AM [facility]ALS REPOSITORY TYPE CODE TESTS RESULT OUT OF REFERENCE UNITS RANGE LAB WBCR(LOINC 4.4 - 11.3 x10E9/L ) WBC 10.1 LAB NRBC(LOINC 0.0-0.0 /100 WBC ) NUCLEATED RBC 0.0 LAB RBCCT(LOIN 4.00 - 5.20 x10E12/L C) Low RBC 3.41 LAB HGB(LOINC) 12.0 - 16.0 g/dL Low HGB 9.9 LAB HCT(LOINC) 36.0 - 46.0 % Low HCT 32.7 LAB MCV(LOINC) 80 - 100 fL MCV 96 LAB MCHC2(LOIN 32.0 - 36.0 g/dL C) Low MCHC 30.3 LAB PLTCT(LOIN 150 - 450 x10E9/L C) PLT 276 LAB RDWCV(LOIN 11.5 - 14.5 % C) High RDW-CV 17.1 Performed By: #### CBC #### [facility] [address] [place] [address] BASIC METABOLIC PANEL Collected: 01/06/2018 Status: F Source: [facility] 8:35 AM [facility] REPOSITORY TYPE CODE TESTS RESULT OUT OF REFERENCE UNITS RANGE LAB GLU(LOINC) 74 - 99 mg/dL GLUCOSE 93 LAB SOD(LOINC) 136 - 145 mmol/L Low SODIUM 134 LAB K(LOINC) 3.5 - 5.3 mmol/L POTASSIUM 4.3 LAB CHLOR(LOIN 98 - 107 mmol/L C) CHLORIDE 99 LAB BIC(LOINC) 21 - 32 mmol/L BICARBONATE 26 LAB ANGAP(LOIN 10 - 20 mmol/L C) ANION GAP 13 LAB UREA(LOINC 6 - 23 mg/dL ) UREA NITROGEN 13 LAB CREA(LOINC 0.50 - 1.05 mg/dL ) CREATININE 0.84 LAB GFRFN(LOIN >60 mL/min/1.7 C) 3m2 GFR-NON AM. >60 LAB GFRAA(LOIN >60 mL/min/1.7 C) 3m2 GFR- AM. >60 Result Comment: CALCULATIONS OF ESTIMATED GFR ARE PERFORMED USING THE MDRD STUDY EQUATION FOR THE IDMS-TRACEABLE CREATININE METHODS. CLIN CHEM 2007;53:766-72 LAB CA(LOINC) 8.6 - 10.6 mg/dL CALCIUM 8.8 Performed By: #### BMP #### [facility] [address] [place] [address] DISCHARGE PLANNING Observed: 01/06/2018 Status: UNK Source: UNIVERSITY NOTE 3:48 AM [facility]OS[facility]ITALS REPOSITORY Discharge Needs Assessment: Discharge Planning Assessment [id number] Patient Learning: Factors that Impact Ability to Learnnone(1) Other Learner: Learnerspouse(1) Factors that Impact Ability to Learnnone(2) Other Factors: Functional Screen: In the recent/past 2-4 weeks, patient or family have noticedno issues that require a rehabilitation consult at this time(2) Discharge Needs: Anticipated Discharge Facility/Level of Care NeedsTo Other Institution-Plan Readmit Discharge Planning: Discharge Planning: Nursing Note: Discharge Planning - Admission Date/Time:01/06/18 0349 Admitted to [facility] from PACU. Pt identity verified using name & by patient. Pt lives with Talat, feels safe & has support from daughter Fransisca Yadav per . Prior to admission: independent with walker. Has fallen twice this year w/o injuries. Lives in ranch home with 4 steps to enter home Consults placed: Anticipated DC Disposition: home with transportation by dtr. (E) DC Planning initiated (P) DC Planning ongoing. RN Signature: Melody Kennedy RN 01/06/18 1339 neonatal icu coordinator note: Met with pt and her Talat whom she lives with in [place]. Her emergency contact is her daughter Tessa Barry: . Pharmacy of choice is [facility] in [place] and the PCP is Dr. Yrn Allen. She has a walker and a w/c but has fallen as above. Has not currently been recieving home care. Whit Ma, KENN Configuration Analyst Electronic Signatures: Melody Kennedy (NANI) (Signed 06-Jan-2018 04:00) Authored: Discharge Planning Note Whit Ma (RN) (Signed 06-Jan-2018 15:52) Authored: Discharge Planning Note Last Updated: 06-Jan-2018 15:52 by Whit Ma (KENN) References: 1. Data Referenced From 5. Education 01/06/2018 3:44 AM 2. Data Referenced From Admission Risk Screen - Adult 01/06/2018 3:44 AM DISCHARGE PROFILE2 Observed: 01/05/2018 Status: UNK Source: [facility] 7:41 PM [facility]OS[facility]ITALS REPOSITORY Discharge Orders: Anticipated Discharge Date: Anticipated Discharge [id number] Anticipated Discharge Time14:00 Problem List: Additional Dx: Bladder cancer: Catalog Name: Malignant neoplasm of bladder, unspecified Hospital Providers: Provider RoleProvider Name Wayne Merritt Urology: Urology Discharge Instructions: TURBT/Cystoscopy with bladder biopsy. - DESCRIPTION OF PROCEDURE. - TURBT and cystoscopy with bladder biopsy are minimally invasive procedures that involve placing a telescope through the urethra and into the bladder in order to remove a mass or suspicious lesion. A catheter MAY have been placed at the end of the procedure to aid in the passage of urine because of thinning of the bladder at the resection site and/or bleeding and you may be sent home with this in place. - ACTIVITY. - Today: Light to moderate activity. - Tomorrow: Normal activity as tolerated. - Avoid heavy lifting or straining for 2 weeks as this can lead to increased blood in the urine. - Do not drive or operate heavy machinery while taking narcotic medication or if you have discomfort that impairs your ability to make sudden movements. You may return to work tomorrow. - DIET - You may resume a normal diet and make sure to drink plenty of fluids. - SHOWERING AND BATHING. - It is OK to shower and/or bathe immediately following the procedure. - SIGNS and SYMPTOMS - EXPECTED. - Blood in the urine with passage of small clots. - Urine may clear up and turn red a few days later. - Burning with urination for a few days. - Discomfort during urination may occur. - Bladder spasms may occur in your lower abdomen at anytime. - Frequency and urgency will occur and improve over time. - WORRISOME - NOTIFY YOUR PHYSICIAN OR RESIDENT TIMBER APPRAISER. - Fever greater than 101 F or 38.3 C, chills, nausea, vomiting, or feeling ill. - Bright red blood in your urine that is persistent. - Pain not controlled by your prescriptions. - Inability to urinate. - If catheter present- Clogging or clotting off of catheter, no urine coming through catheter tubing. Acetaminophen / Oxycodone: A narcotic pain medication. Docusate: Decreases constipation. - PATIENT INSTRUCTIONS. - CATHETER CARE - Your catheter is an important part of helping you heal from this surgery. It must remain in place until instructed by your surgeon. You will be provided two different types of bags to hold your urine. - 1. The small leg bag should be used during the day. It will be strapped above the knee to your thigh beneath clothing. Do not place it below the knee as it can cause the catheter to pull out. Drain bag when full. You may trim excess tubing. - 2. The large bag is meant to be used at night while sleeping. This bag holds more urine and does not need to be emptied as often. Make sure it drapes off the side of the bed to drain properly. The bag should always be below your bladder. Appointments: - PROVIDER/LOCATION. Dr Wayne Aguilar. Call the Main number to schedule an appointment at [phone]. Call as soon as possible to schedule an appointment. We would like to see you in 2 weeks. For any questions, concerns, or need to reschedule appointments, please call our Main Office at [phone]. Provider FINAL REVIEW of Orders: Final Review: Final Review of Medication Reconciliation and Orders Completedby Physician Reviewing ProviderJessi Munson MD (Resident) at 05-Jan-2018 19:47:11 Appointments: Follow-Up Appointment 01: Physician/Dept/ServiceDr. Murtaza Mcgill (medical oncology) Reason for Referralevaluation for possible chemotherapy for bladder cancer Commentsplease call and make an appointment as soon as possible (cancel the appointment on 02/23/18, and replace it with an appointment as soon as possible after getting the imaging studies done between 01/14/18 and 01/19/18) Electronic Signatures: Jessi Munson (Resident)) (Signed 05-Jan-2018 19:47) Authored: Discharge Orders, Urology, Provider FINAL REVIEW of Orders, Gold Form - Small Business Representative Summary Stu Haas (Resident)) (Signed 06-Jan-2018 17:17) Authored: Appointments Last Updated: 06-Jan-2018 17:17 by Stu Haas (Resident)) HISTORY AND PHYSICAL Observed: 01/05/2018 Status: COMPLETED Source: [facility] - SURGICAL UPDATE < 5:39 PM HOSPITALS REPOSITORY 30 DAYS History & Physical Reviewed: I have reviewed the History and Physical dated: 20-Dec-2017 History and Physical reviewed and relevant findings noted. Patient examined to review pertinent physical findings.: No significant changes Home Medications Reviewed: no changes noted Allergies Reviewed: no changes noted This patient has been seen and discussed with the attending physician responsible for performing the procedure: yes Signatures/Attestation/Certification: Attending Provider Inpatient Certification StatementI certify this patients need for inpatient care based on the above documentation including; the order to admit as inpatient, the anticipated length of stay, diagnosis, problem list and plan of care, and discharge plan. Electronic Signatures: Razia Francis (Resident)) (Signed 05-Jan-2018 17:40) Authored: History & Physical Reviewed, Signatures/Attestation/Certification Wayne Aguilar) (Signed 06-Jan-2018 03:59) Authored: Signatures/Attestation/Certification Co-Signer: History & Physical Reviewed, Signatures/Attestation/Certification Last Updated: 06-Jan-2018 03:59 by Wayne Aguilar) ABO/RH GROUP TEST Collected: 01/05/2018 Status: F Source: [facility] 4:38 PM [facility] REPOSITORY TYPE CODE TESTS RESULT OUT OF RANGE REFERENCE UNITS LAB ABORH(LOINC ) ABO TYPE O LAB RH(LOINC) RH TYPE POS Performed By: #### VERAB #### [facility] [address] [address] PREOP CHECKLIST Observed: 01/05/2018 Status: UNK Source: [facility] 4:27 PM HOSPITALS REPOSITORY Preop Checklist: Preop Checklist: Arrival [id number] Arrival Time16:00 Procedure TypeTURBT NPO [id number] 07:30 ID Band Onyes Allergy Bandyes Consent Signedpending H&P Completepending Anesthesia Assessment Completedpending EKG Performednot ordered Chest X-Ray Performednot ordered Chlorhexadine Bath Givennot applicable Soap and water bath with hair shampoo the night before surgerynot applicable SCD's Appliedsent to OR MICHEAL Hose Appliednot ordered Denturesnot applicable Prostheticsnot applicable Hearing Aidsnot applicable Valuables Securedplaced in locker Glasses / Contactssent with family Bowel Prepno Cardiovascular Assessment: Apicalregular Radial Pulsespalpable Pedal Pulsespalpable Extremitieswarm Respiratory Assessment: Respirationsunlabored regular Air Exchangeequal, good Breath Soundsclear Neurological Assessment: Level of Consciousnessoriented, alert Mobilitymoves all extremities Able to Express Selfyes Age Appropriateyes Emotional Statuscalm Preop Education: Surgical Site Infection Preventionyes Pain Scales and Managementyes Language / Communication: Language / CommunicationEnglish Electronic Signatures: Nohemi Vazquez (RN) (Signed 05-Jan-2018 16:29) Authored: Preop Checklist Last Updated: 05-Jan-2018 16:29 by Nohemi Vazquez (RN) OPERATIVE REPORT Observed: 01/05/2018 Status: UNK Source: [facility] 12:00 [place] [address] Patient Name: JUDITH. Ingris HERNANDEZ : 1940 Date of Service: 01/05/2018 Patient Location: C600 [id number] Patient Type: O Surgeon: Wayne Aguilar MD, MPH Report Type: Operative Reports PREOPERATIVE DIAGNOSIS: Bladder cancer. POSTOPERATIVE DIAGNOSIS: Bladder cancer. OPERATION/PROCEDURE: 1. Cystoscopy. 2. Transurethral resection of bladder tumor, large. Tumor size 5 cm. 3. Exam under anesthesia. SURGEON: Wayne Aguilar MD, MPH RESIDENTIAL PROPERTY TAX APPRAISER(S): Supa Francis MD ANESTHESIA: General. IV FLUIDS: Per anesthesia records. DRAINS AND CATHETERS: 20-Moldovan Romeo. COMPLICATIONS: None. URINE OUTPUT: Not measured. ESTIMATED BLOOD LOSS: Less than 5 cc. SPECIMEN: Bladder tumor, superficial and deep. BRIEF HISTORY: This is a 77-year-old female with a history of T2 bladder cancer who previously underwent chemoradiation for treatment of her bladder cancer. She does have squamous cell differentiation on previous pathology. She presents now with recurrence of her bladder tumor. She is here today for transurethral resection for restaging of her bladder tumor. The risks, benefits, and alterantives of the procedure were discussed. Informed consent was obtained. OPERATIVE PROCEDURE: The patient was taken to the operating room, placed on the operating table. Time-out was performed. All were in agreement. Appropriate antibiotics were administered. Anesthesia was induced. She was then repositioned in a dorsal lithotomy position. Her perineum was prepped and draped in the usual standard sterile fashion. We then proceeded to insert a 21-Moldovan cystoscope and performed a pancystoscopy of the bladder which revealed tumors encompassing essentially of the entire bladder. The right ureter was identified. We were unable to definitively identify the left ureteral orifice. There was a lot of complication and necrotic tissue of this tumor as well. The cystoscope was then removed, and the resectoscope was inserted. We then proceeded to resect the right lateral wall ensuring to take both superficial and deep muscle specimens which were sent separately to Pathology. The bladder was then emptied, and adequate hemostasis was achieved. Full resection was not performed as if this is truly a recurrence of her disease, she would need a cystectomy. Once adequate hemostasis was achieved, the cystoscope was removed. A 20-Moldovan Romeo was then inserted with return of clear irrigants. It was then placed to a drainage bag. After this, a bimanual exam was then performed which demonstrated T3 disease and the bladder was mobile. This completed the case. The patient was then awoken from anesthesia and taken to PACU in stable condition. FOLLOWUP: She will be admitted overnight for urogram as well as medical clearance and planning for her potential surgery. aWyne Aguilar MD, MPH Rehab Tech of Urologic Oncology and Urology Pager: [phone] E-mail: Supa Francis MD for Wayne Aguilar MD, MPH EST TT: 01/06/2018 03:14 AM EST DICTATION NUMBER: [id number] [facility] JOB NUMBER: [id number] CC: Wayne Aguilar MD, MPH, Yrn Allen MD, Edited by Wayne Aguilar 01/10/2018 01:26:[address] Electronically Signed by Dr. Wayne Aguilar 01/10/2018 01:26:48 PM [facility] SURGICAL PATHOLOGY Observed: 01/05/2018 Status: F Source: UNIVERSITY DEPARTMENT 12:00 AM HOSPITALS REPOSITORY Name CLOVER HERNANDEZ Pathologist: Lukasz Okeefe MD Date of Procedure: 01/05/2018 Date Received: 01/05/2018 Date Reported 01/11/2018 Submitting Physician: WAYNE AGUILAR MD, MPH Location: C600 Other External # FINAL DIAGNOSIS A. TISSUE DESIGNATED SUPERFICIAL BLADDER TUMOR, TRANSURETHRAL RESECTION: --SPECIMEN CONSISTS OF CALCIFIED AMORPHOUS DEBRIS, INFLAMMATORY EXUDATE, AND DETACHED UNORIENTED SHEETS AND STRIPS OF EPITHELIUM WITH SQUAMOUS DIFFERENTIATION. A SINGLE SMALL FRAGMENT OF BLADDER MUCOSA IS PRESENT, SHOWING SQUAMOUS METAPLASIA. B. TISSUE DESIGNATED DEEP BLADDER TUMOR, TRANSURETHRAL RESECTION: --INVASIVE POORLY DIFFERENTIATED CARCINOMA, HIGH GRADE. SEE NOTE. Note: Tumor invades detrusor muscle (muscularis propria). Electronically Signed Out By Lukasz Okeefe MD/GTM By the signature on this report, the individual or group listed as making the Final Interpretation/Diagnosis certifies that they have reviewed this case. Clinical History: Bladder cancer Specimens Submitted As: A: SUPERFICAL BLADDER TUMOR B: DEEP BLADDER TUMOR Gross Description: A: Received in formalin, labeled with the patient's name and hospital number and A, are multiple irregular fragments of soft, light gan, tissue aggregating to 3.0 x 2.3 x 0.7 cm and weighing 2.3 grams. The specimen is submitted in toto in 2 cassettes. LMP B: Received in formalin, labeled with the patient's name and hospital number and B, are multiple irregular fragments of soft, light gan, tissue aggregating to 2.5 x 2.0 x 1.0 cm and weighing 0.9 grams. The specimen is submitted in toto in 2 cassettes. LMP lmp/01/06/2018 Performed By: #### [facility] #### [facility] Surgical Pathology Department [address] [facility] [address] PATIENT PROFILE - Observed: 01/04/2018 Status: UNK Source: [facility] PRE V2 5:56 PM HOSPITALS REPOSITORY Profile: Initial Info: How to be AddressedJudy Spoken Language PreferredEnglish Are you currently using the Personal Electronic Health Record or [email or web address] Are you interested in learning more about [employer] for the management of your healthnot at this time Stated Reason for Admissionbladder tumor Primary Contact Name and NumberJoanne- [phone] Patient Belongingsnone Medications Brought to Hospitalno General Health: Weight in kg83.9 kilogram(s) Weight in htp120 pound(s) Weight Methodstated Height in cm162.5 centimeter(s) Height in feet5 feet Height in inches4 inch(es) Height Methodstated BMI (kg/m2)31.772 square meter Patient or Family Member Reaction to Anesthesiano previous reaction Blood Avoidance/Restrictionsnone Previous Transfusion Reactionyes Transfusion Reactionchills Health Mgmt: Symptoms/Conditions Managed at Homecancer; endocrine; cardiovascular Cancer Symptoms/Conditionsbladder Cardiovascular Symptoms/Conditionshypertension Barriers to Managing Healthnone Endocrine Symptoms/Conditionsthyroid disease Relationship/Environ: Lives Withspouse Living Arrangementshouse Resource/Environmental Concernsnone Anticipated Transition [place] [facility] Anticipated at Transitionnone Substance: Current or Former Substance Use never: Cigarette/Tobacco, e-Cigarette/Vaping, Alcohol, Street Drugs Risk Screens: Advance Directive Medicalyes Advance Directive typeLiving Will, Durable Power of [place] [employer] for Healthcare Living Will Availabilityplaced in chart Living Will Placed on [id number] Durable Power of [place] [employer] Operator Availabilityplaced in chart Durable Power of [place] [employer] Operator Placed on [id number] During the past month, have you often been bothered by feeling down, depressed or hopelessno During the past month, have you often had little interest or pleasure in doing thingsno Have you had any thoughts of harming yourselfno Have you had any thoughts of harming anyone elseno Patient is Able to be Assessed for Learningyes Factors Influencing Readiness to Learnacuteness of illness; interest in learning Factors that Impact Ability to Learnnone Devices/Methods Used to Communicatenone Learning Preferencesindividual instruction; written material Cultural Considerationsnone Developmental Considerationsnone Yazidi Considerationsnone Other learner availableno [place] RiskPatient location auto qualifies him/her for HIGH RISK. Are there any cultural, spiritual, christianity practices/values/needs that are important for us to knowno Pain Scalenumerical 0-10 Pain Scale Educationteaching provided Current Pain Level0 = None Acceptable Pain Level2 = Mild Chronic Painno Information Review: Allergies, Home Meds and Significant Events have been Reviewed and Verified with Patient/Familyyes Allergy, Intolerance, Adverse Event: Allergies: sulfa drugs: Drug Category, Unknown, Active Significant Events: 04-Jan-2018 former smoker: Past Medical History, Active 04-Jan-2018 tonsillectomy: Past Medical History, Active 04-Jan-2018 urinary incontinence: Past Medical History, Active 04-Jan-2018 peripheral edema: Past Medical History, Active 04-Jan-2018 chronic back pain: Past Medical History, Active 04-Jan-2018 HTN: Past Medical History, Active 04-Jan-2018 hypothyroid: Past Medical History, Active 04-Jan-2018 bladder mass: Past Medical History, Active Electronic Signatures: Nohemi Vazquez (RN) (Signed 05-Jan-2018 16:21) Authored: Profile, Additional Information Angela Costa) (Signed 04-Jan-2018 18:04) Authored: Profile, Additional Information Last Updated: 05-Jan-2018 16:21 by Nohemi Vazquez (RN) ABO/RH GROUP TEST Collected: 01/03/2018 Status: CANCELLED Source: [facility] 2:58 PM HOSPITALS REPOSITORY Order Comment: TEST ABO/RH GROUP TEST WAS CANCELLED, 01/04/2018 19:55 NO SPECIMEN RECEIVED IN LAB. TYPE CODE TESTS RESULT OUT OF REFERENCE UNITS RANGE LAB ABORH(LOINC ) ABO TYPE Canceled LAB RH(LOINC) RH TYPE Canceled Performed By: #### VERAB #### [facility] [address] [place] [address] BASIC METABOLIC Collected: 01/02/2018 Status: F Source: [facility] PROFILE (BMP) 10:45 AM [facility] [place] TYPE CODE TESTS RESULT OUT OF RANGE REFERENCE UNITS LAB L501.0100 74-106 mg/dL High GLU 117 Result Comment: Fasting Glucose result from 100 to 125 mg/dL suggests IMPAIRED HOMEOSTASIS per A.D.A. criteria. Please note revised GLUCOSE reference range effective 2017. LAB L501.1000 7-18 mg/dL Normal BUN 10 LAB L501.1100 0.55-1.02 mg/dL Normal CREAT,SERUM 0.83 Result Comment: The validity of the calculated GFR AND GFRAA in patients over 70 years has not been determined. Clinical correlation is essential. LAB L501.1110 >60 mL/min Normal EST GFR 71 Result Comment: Non- GFR Calc LAB L501.1115 >60 mL/min Normal EST GFR - AA 86 Result Comment: GFR Calc LAB L501.1300 10-20 RATIO Normal BUN/CRE 12.1 LAB L501.2200 8.5-10.1 mg/dL CA Normal 9.5 LAB L501.5300 136-145 mmol/L NA Normal 136 LAB L501.5600 3.5-5.1 mmol/L K Normal 3.9 LAB L501.5900 98-107 mmol/L CL Normal 98 LAB L501.6100 21.0-32.0 mmol/L Normal CO2 30.0 LAB L501.6200 5-15 Normal GAP 8 Performed By: #### L500.2500 #### [facility] [address] [place], [address] CBC Collected: 12/27/2017 Status: F Source: [facility] 3:13 PM [facility] REPOSITORY TYPE CODE TESTS RESULT OUT OF REFERENCE UNITS RANGE LAB WBCR(LOINC 4.4 - 11.3 x10E9/L ) WBC 8.8 LAB NRBC(LOINC 0.0-0.0 /100 WBC ) NUCLEATED RBC 0.0 LAB RBCCT(LOIN 4.00 - 5.20 x10E12/L C) Low RBC 3.78 LAB HGB(LOINC) 12.0 - 16.0 g/dL Low HGB 10.8 LAB HCT(LOINC) 36.0 - 46.0 % Low HCT 33.9 LAB MCV(LOINC) 80 - 100 fL MCV 90 LAB MCHC2(LOIN 32.0 - 36.0 g/dL C) Low MCHC 31.9 LAB PLTCT(LOIN 150 - 450 x10E9/L C) PLT 278 LAB RDWCV(LOIN 11.5 - 14.5 % C) High RDW-CV 15.9 Performed By: #### CBC #### [facility] [address] [place] [address] COAGULATION SCREEN Collected: 12/27/2017 Status: F Source: [facility] 3:13 PM [facility] REPOSITORY TYPE CODE TESTS RESULT OUT OF REFERENCE UNITS RANGE LAB PT(LOINC) 9.8 - 12.7 sec PROTHROMBIN TIME 12.4 LAB INR(LOINC) 0.9 - 1.1 PT, INR 1.1 LAB APTT(LOINC 25 - 36 sec ) APTT 29 Result Comment: THE APTT IS NO LONGER USED FOR MONITORING UNFRACTIONATED HEPARIN THERAPY. FOR MONITORING HEPARIN THERAPY, USE THE HEPARIN ASSAY. Performed By: #### COAGS #### [facility] [address] [place] [address] BASIC METABOLIC PANEL Collected: 12/27/2017 Status: F Source: [facility]OPE 3:13 PM HOSPITALS REPOSITORY TYPE CODE TESTS RESULT OUT OF REFERENCE UNITS RANGE LAB GLU(LOINC) 74 - 99 mg/dL GLUCOSE High 108 LAB SOD(LOINC) 136 - 145 mmol/L Low SODIUM 129 LAB K(LOINC) 3.5 - 5.3 mmol/L POTASSIUM 3.5 LAB CHLOR(LOIN 98 - 107 mmol/L C) Low CHLORIDE 88 LAB BIC(LOINC) 21 - 32 mmol/L BICARBONATE High 33 LAB ANGAP(LOIN 10 - 20 mmol/L C) ANION GAP 12 LAB UREA(LOINC 6 - 23 mg/dL ) UREA NITROGEN 13 LAB CREA(LOINC 0.50 - 1.05 mg/dL ) CREATININE 0.72 LAB GFRFN(LOIN >60 mL/min/1.7 C) 3m2 GFR-NON AM. >60 LAB GFRAA(LOIN >60 mL/min/1.7 C) 3m2 GFR- AM. >60 Result Comment: CALCULATIONS OF ESTIMATED GFR ARE PERFORMED USING THE MDRD STUDY EQUATION FOR THE IDMS-TRACEABLE CREATININE METHODS. CLIN CHEM 2007;53:766-72 LAB CA(LOINC) 8.6 - 10.6 mg/dL CALCIUM 9.4 Performed By: #### BMP #### [facility] [address] [address] TYPE + SCREEN Collected: 12/27/2017 Status: F Source: [facility] 3:13 [facility] REPOSITORY TYPE CODE TESTS RESULT OUT OF REFERENCE UNITS RANGE LAB ABORH(LOINC ) ABO TYPE O LAB RH(LOINC) RH TYPE POS LAB ABSC(LOINC) ANTIBODY NEG SCREEN Performed By: #### T+S #### [facility] [address] [address] OFFICE VISIT (UROLOGY) Observed: 12/20/2017 Status: UNK Source: [facility]OPE 12:07 PM HOSPITALS REPOSITORY Chief Complaint #1 Possible bladder tumor recurrence #2 Status post chemoradiation with clinical T2Nx urothelial carcinoma of the bladder with squamous differentiation in 2017 #3 Negative metastatic work-up History of Present Illness This is s a pleasant 77 year old patient who was kindly referred to me by Dr. Ayla Alonzo from [facility] for a possible bladder tumor recurrence. Approximately, one year ago, she received sam moradiation for muscle-invasive bladder cancer with squamous differentiation. She was disease free. However, she recently had a positive urine cytology and CT scan concerning for a bladder tumor. Review of Systems Constitutional: no fever, no chills, not feeling poorly, not feeling tired, no recent weight gain and no recent weight loss. Eyes: no eye pain, eyes not red, no eyesight problems, no purulent discharge from the eyes, no dryness of the eyes and no itching of the eyes. ENT: no earache, no hearing loss, no nosebleeds, no nasal discharge, no sore throat and no hoarseness. Cardiovascular: the heart rate was not slow, the heart rate was not fast, no chest pain, no palpitations, no intermittent leg claudication and no lower extremity edema. Respiratory: no shortness of breath, no wheezing, no cough, no shortness of breath during exertion, no orthopnea and no postural nocturnal dyspnea. Gastrointestinal: no abdominal pain, no constipation, no heartburn, no nausea, no diarrhea, no vomiting and no blood in stools. Genitourinary: no dysuria, no incontinence, no pelvic pain, no dysmenorrhea, no vaginal discharge, no unexplained vaginal bleeding and normal micturition. Musculoskeletal: joint stiffness, limb pain and back pain, but no arthralgias, no myalgias, no gait abnormality, no joint swelling and no limb swelling. Integumentary: no rashes, no skin lesions, no change in a mole, no itching, no skin wound, no breast pain and no breast lump. Neurological: dizziness, but no headache, no confusion, no convulsions, no numbness, no fainting, no tingling, no limb weakness and no difficulty walking. Psychiatric: not suicidal, no sleep disturbances, no anxiety, no depression, no personality change and no emotional problems. Endocrine: hot flashes, but no proptosis and no deepening of the voice. no feelings of weakness Hematologic/Lymphatic: no swollen glands, no swollen glands in the neck, no tendency for easy bleeding and no tendency for easy bruising. Active Problems Acute UTI (599.0) (N39.0) Allergies sulfa Itching; skin peeling; Recorded By: Elam Boogie; 12/20/2017 9:04:40 AM Vitals Vital Signs Recorded: 20Dec2017 08:30AM Heart Rate70 Htdtzhip686 Wuizuvpnd38 Qmlhzm620 lb Physical Exam General: Healthy Chest: Normal respiratory effort Abdomen: Soft, non-tender, benign Extremities: Warm and well perfused Orders Acute UTI Cult, Urine; Source:Urine; Status:Active - Retrospective By Protocol Authorization; Requested for:20Dec2017; Perform:Lab Services - Lab To Draw (Non-Blood Test); Due:20Mar2018; Last Updated By:Elma Boogie; 12/20/2017 9:15:19 AM;Ordered; For:Acute UTI; Ordered By:Wayne Aguilar; Site : CLEAN CATCH VOIDED (URINE) Patient Discussion/Summary Impression #1 Possible bladder tumor recurrence #2 Status post chemoradiation with clinical T2Nx urothelial carcinoma of the bladder with squamous differentiation in 2017 #3 Negative metastatic work-up Thank you for allowing me to see your patient, Dr. Alonzo. I met with the patient and the family. I recommended a cystoscopy with TURBT first to confirm a tissue diagnosis, if this seems reasonable to y ou. I reviewed the risks and benefits of surgery. Among the risks discussed but not limited to are bleeding, infection, risk of anesthesia, and injury to adjacent organs. The patient agreed to the procedure and made an informed decision to proceed. Plan Schedule surgery in December with PAT Thank you for allowing me to participate in this patients care. Please do not hesitate to contact me if there are any questions or I can be of any assistance. Wayne Aguilar MD, MPH Rehab Tech of Urologic Oncology and Urology Director of Robotic Surgery Director of Kidney and Bladder Cancer Pager: [phone] E-mail: [email or web address] Signatures Electronically signed by : Wayne Aguilar MD; Dec 20 2017 12:07PM EST (Author) URINE Observed: 12/20/2017 Status: F Source: UNIVERSITY CULTURE,BACTERIAL 9:15 AM HOSPITALS REPOSITORY PATIENT: CLOVER HERNANDEZ [place] [facility] [place] [id number] : 40 AGE: SEX: F ORDERED BY: WAYNE AGUILAR SOURCE: URINE COLLECTED: 12/20/17 09:15 ANTIBIOTICS AT MAYA.: RECEIVED : 12/20/17 22:52 SITE: Clean Catch/Voided R E S U L T S URINE CULTURE,BACTERIAL FINAL 12/21/17 17:16 NO GROWTH Performed By: #### URINC #### [facility] [address] [place] [address] CREATININE FINGERSTICK Collected: 12/05/2017 Status: F Source: [place] 5:59 PM [facility] [place] TYPE CODE TESTS RESULT OUT OF REFERENCE UNITS RANGE LAB L9100.0210 0.55-1.02 mg/dL High CREATININE WB 1.1 LAB L9100.0220 >60 mL/min Low EGFR WB 51.0000 Performed By: #### L9100.0200 #### [facility] Point of Care [address] [place] [address] ABDOMEN/PELVIS WITH Observed: 12/05/2017 Status: F Source: [facility] CONTRAST 5:27 PM [facility] [place] [facility] Imaging Services [address] [place] [address] Abdomen/Pelvis WITH Contrast MR#: [id number] Acct: [id number] Name: CLOVER HERNANDEZ Rep #: [id number] : 1940 F 77 From: Ha Vanegas MD PCP: Yrn Allen MD Status: REG CLI Study: Abdomen/Pelvis WITH Contrast Date of Exam: 12/05/17 Exam# [id number] Ordering Dr: Juan Alonzo MD STUDY: CT ABDOMEN AND PELVIS WITH CONTRAST REASON FOR EXAM: Female, 77 years old. Bladder cancer RADIATION DOSAGE (If Supplied By Facility): CTDIvol = ( 19.15 ) mGy, DLP = ( 2632.46 ) mGycm TECHNIQUE: Transaxial images were obtained from the dome of the diaphragm to the symphysis pubis with oral contrast. 100ML ml of Isovue 300 contrast was administered. Sagittal and coronal images were reconstructed. Individualized dose optimization techniques were used for this CT. COMPARISON: 09/20/2016 FINDINGS: The visualized lung bases are unremarkable. The visualized portions of the heart are within normal limits. Hypoattenuated lesion in the right posterior hepatic segment with peripheral puddling enhancement, unchanged compared to prior imaging. Calcified stones within a minimally distended gallbladder. No pericholecystic inflammation. Biliary ducts are unremarkable. Normal spleen. Normal pancreas. Normal bilateral adrenal glands. Hypoattenuated lesions within both kidneys measuring near water density. Normal ureters. Normal visualized stomach. Normal small intestine. Normal colon. The appendix is visualized and appears normal. Mild atherosclerotic calcification of the abdominal vasculature. Normal inferior vena cava. Normal retroperitoneum. Marked irregularity of the anterior urinary bladder wall with centralized calcification and pericystic inflammation, worsened from prior imaging. Uterus is surgically absent. Normal abdominal wall. Normal osseous structures. CT/Abdomen/Pelvis WITH Contrast IMPRESSION: 1. Marked irregular thickening of the anterior urinary bladder wall with internal calcification and surrounding ablation, consistent with patient's known history of bladder cancer. 2. Cholelithiasis with no CT evidence of acute cholecystitis. 3. Simple appearing bilateral renal cysts 4. Right posterior hepatic segment hemangioma Electronically Signed: Ha Vanegas MD at 1:52 EDT Tel , Service support , CC: Juan Alonzo MD; Yrn Allen MD Plant Etiologist: Signed CHEST WITH CONTRAST Observed: 12/05/2017 Status: F Source: [place] 5:27 PM [facility] Imaging Services [address] [place] [address] Chest WITH Contrast MR#: [id number] Acct: [id number] Name: CLOVER HERNANDEZ Rep #: [id number] : 1940 F 77 From: Ha Vanegas MD PCP: Yrn Allen MD Status: REG CLI Study: Chest WITH Contrast Date of Exam: 12/05/17 Exam# [id number] Ordering Dr: Juan Alonzo MD STUDY: CT CHEST WITH CONTRAST REASON FOR EXAM: Female, 77 years old. History of bladder cancer RADIATION DOSAGE (If Supplied By Facility): CTDIvol = ( 19.15 ) mGy, DLP = ( 2632.46 ) mGycm TECHNIQUE: Transaxial imaging was performed following intravenous administration of 100ML ml of Isovue 300 contrast material. Individualized dose optimization techniques were used for this CT. COMPARISON: None. FINDINGS: The lungs are normal. There is no demonstrated pleural abnormality. Normal heart and pericardium. Normal mediastinum. Normal hilar regions. Normal enhanced pulmonary arteries. Normal aorta arch and descending thoracic aorta. Normal osseous structures. There is no demonstrated abnormality of the visualized upper abdomen. CT/Chest WITH Contrast IMPRESSION: Normal enhanced CT Chest examination. Electronically Signed: Ha Vanegas MD at 2:35 EDT Tel , Service support , CC: Juan Alonzo MD; Yrn Allen MD Plant Etiologist: Signed ONCOLOGY VISIT REPORT Observed: 11/28/2017 Status: F Source: [place] 11:42 AM [facility] [address] [place] [address] OFFICE VISIT Date of Service: 11/25/17 1204 MR#: [id number] Acct: [id number] Name: CLOVER HERNANDEZ Rep #: [id number] : 1940 From: Murtaza Mcgill MD Age/Sex: 77/F Location: ONC Status: Signed Subjective - Date of Service Date of Service:: 11/24/17 - Chief Complaint F/u for Bladder cancer. - History of Present Illness Ms. Clover Hernandez is a pleasant 77 year old woman who presented with frequency urinary tract infections. She underwent cystoscopy, which revealed a bladder mass. Subsequently, she underwent CT scan of the abdomen and pelvis on 04/24/2016, which again showed a bladder mass with no lymphadenopathy. CXR 05/14/16 was negative for metastatic disease. She underwent TURBT 05/21/16. Biopsy proved positive for invasive bladder cancer with squamous differentiation involving the muscularis propria, stage II (T2, N0, M0). The patient elected treatment with the goal of bladder preservation and began concomitant chemoradiation with cisplatin weekly on 06/16/16 . Cycle 5 cisplatin due 07/14/16 held d/t thrombocytopenia and cellulitis of the lower legs. Finished with cycle 5 on 08/11/16. CT a/p on 09/21/2015 showed contracted thick wall bladder. She had cystoscopy and bladder biopsy on 10/29/2016 which showed no malignant cells. She has had chronic UTI and has been taking antibiotics. She is on observation and comes in follow up. - Past Medical/Social History Past Medical History Past Medical History: Hypertension Other Past Medical History: HYPOTHYROIDISM FREQUENCY OF URINATION HEMATURIA, MICROSCOPIC INCONTINENCE, UNSPECIFIED UTI Cancer: Bladder cancer Past Surgical History Surgical: Back,Hysterectomy,Tonsillectomy Other Surgical History: stent placed left kidney 11/11 Family History Paternal Past Medical History: Unknown Paternal History of Cancer Metastatic cancer Maternal Past Medical History: Arthritis,Hypertension Social History Social History: No changes Smoking Status Former smoker Review of Systems Constitutional:: Denies: Fever, Sweats Cardiovascular:: Denies: Chest pain, Palpitations, Dyspnea on exertion, Orthopnea, PND, Shortness of breath Respiratory: Denies: Cough, Hemoptysis, Shortness of Breath, Wheezing Gastrointestinal:: Denies: Abdominal pain, Nausea, Vomiting, Diarrhea, Constipation, Hematochezia Genitourinary: Reports: Incontinence, Pelvic pain. Denies: Hematuria Musculoskeletal:: Reports: Arthritis Skin: Denies: Rash, Skin Changes, Wounds Neurological:: Denies: Headache, Dizziness, Visual changes, Tinnitus, Hearing loss Psychiatric: Denies: Anxiety, Depression, Homicidal Ideations, Suicidal Ideations Vital Signs Height 5 ft 5 in Weight: 85.275 kg Weight in Pounds 188.0 lbs Pulse Ox 98 - Physical Exam General: Alert, Oriented x3, No apparent distress, - - [place] HEENT: Atraumatic, PERRLA, EOMI, Normocephalic Oropharynx:: Dry mucosa Neck:: Supple, Trachea midline. Negative for: JVD, bilateral Cardiac:: Regular rate, Regular rhythm, Normal S1, Normal S2. Negative for: Murmur Lungs: Clear to auscultation, Excusion symmetrical. Negative for: Rhonchi, Wheezes Abdomen:: Bowel sounds x 4, Soft, Non-tender, Non-distended. Negative for: Hepatosplenomegaly Neurological: Cranial nerves II-XII grossly intact, Unsteady Gait - walks with walker. Lymphatics:: Negative for: Cervical lymphadenopathy, Supraclavicular lymphadenopathy, Axillary lymphadenopathy Diagnostic Data: 11/17/2017 Urine cytology reviewed. DIAGNOSIS CYTOLOGY Urine for cytology (cytospin): Atypical urothelial cells with squamoid differentiation highly suspicious for urothelial carcinoma. AM:rg 11/18/17 Assessment and Plan Bladder cancer stage II S/P chemoradiation therapy for bladder preservation. Urine cytology on 11/17/2017 shows abnormal cell suspicious of malignant. Chronic UTI on antibiotics. Plan is to follow with Urology for further evaluation. RTC 3 months with UA. Medications: Prescriptions This Visit Medication Instructions Recorded Ibuprofen [Advil] 200 mg PO BID PRN 07/06/16 Primary Care Provider: Merle Primary Care Phys Referring Provider: Juan Alonzo - Problem List (1) Bladder carcinoma Status: Resolved (2) History of bladder cancer Status: Chronic Code Visit Office Visits / Consults: [id number] OV L4 Est 11/28/17 1142 <Electronically signed by Murtaza Mcgill MD> Date Murtaza Mcgill MD Cosigner Signature: Date (if applicable) CC: Observed: 11/24/2017 Status: F Source: [place] CULTURE, URINE 4:41 PM [facility] Urine Culture ORGANISM 1: Klebsiella pneumoniae sp pneum [place] Count >100,000 Klebsiella pneumoniae sp pneum: REACTION Amoxacillin/Clavulanic Acid $ 16 I Ampicillin $ >=32 R Ampicillin/Sulbactam $ >=32 R Cefazolin $ >=64 R Cefepime $ <=1 S Ceftriaxone $ <=1 S Ciprofloxacin $ <=0.25 S ESBL - Ertapenim $$$ <=0.5 S Gentamicin $ <=1 S Imipenem *NF <=0.25 S Levofloxacin $ <=0.12 S Nitrofurantoin $ 64 I Piperacillin/Tazobactam $$ >=128 R Tobramycin $ <=1 S Trimethoprim/Sulfametho $ <=20 S (NF) indicates non-formulary drug at [facility]. Approval by Infectious Disease Specialist required before non-formulary drugs may be ordered and/or dispensed. Performed By: #### M100.0650 #### [facility] [address] [place], [address] CYTOLOGY, BODY FLUID / Collected: 11/17/2017 Status: F Source: [place] CSF 10:01 AM [facility] Order Comment: Reason for Laboratory Test URINE Specimen Source: URINE TYPE CODE TESTS RESULT OUT OF RANGE REFERENCE UNITS LAB L350.1000 SEE Normal PATHOLOGY CYTOLOGY,BF REPORT /CSF Result Comment: Specimen submitted to Anatomical Pathology Department for testing. Performed By: #### L350.1000 #### [facility] [address] [place], [address] CYTOSPIN ON FLUID Observed: 11/17/2017 Status: F Source: [place] 12:00 AM [facility] Patient: CLOVER HERNANDEZ : 1940 (77/F) Acct Num: [id number] Phys: Murtaza Mcgill MD Unit Num: [id number] Loc: ONC Specimen: [id number] Received: 11/17/17 - 1212 Spec Type: CYSPIN FL TISSUES TISSUES: Urine COMMENT Reference is made to the patient s urinary bladder TUR from 05/25/16 ([id number]) in which invasive high-grade urothelial carcinoma with squamous features was identified. CYTOLOGY GROSS Received is 20 ml of slightly cloudy yellow fluid labeled with the patient's name and and designated per the requisition as urine. Submitted for cytology preparation. / 11/17/17 TC:? CPT: 26728 CYTOLOGY STUDY Slides are reviewed. DIAGNOSIS CYTOLOGY Urine for cytology (cytospin): Atypical urothelial cells with squamoid differentiation highly suspicious for urothelial carcinoma. AM:anai 11/18/17 HEADER OPERATION: Not noted PRE-OP DIAGNOSIS: History bladder CA TISSUE SUBMITTED: Urine for cytology Signed Faisal Dante 11/18/17 <signature on file> Performed By: #### PCYSPIN #### [facility] [place], [address] CBC W/DIFF, AUTOMATED Collected: 10/21/2017 Status: F Source: [place] 10:27 AM [facility] TYPE CODE TESTS RESULT OUT OF RANGE REFERENCE UNITS LAB L100.1000 4.4-11.0 K/mm3 Normal WBC 7.1 LAB L100.1200 4.2-5.4 M/mm3 Low RBC 3.92 LAB L100.1300 12.0-15.0 g/dl Low HGB 11.9 LAB L100.1400 37-47 % Normal HCT 37.1 LAB L100.1500 81-99 fL Normal MCV 94.6 LAB L100.1600 27.0-32.0 pg Normal MCH 30.4 LAB L100.1700 32-36 g/gl Normal MCHC 32.1 LAB L100.1810 11.6-14.6 % Normal RDW CV 14.6 LAB L100.1820 35.1-43.9 fl High RDW SD 48.4 LAB L100.1900 150-450 K/mm3 Normal PLT 246 LAB L100.2000 6.2-12.0 fl Normal MPV 9.4 LAB L100.2100 47-70 % High NEUT% 79.1 LAB L100.2200 19-41 % Low LY% 9.1 LAB L100.2300 0-10 % Normal MONO% 8.4 LAB L100.2400 0-5 % Normal EO% 2.7 LAB L100.2500 0-1 % Normal BASO% 0.3 LAB L100.2550 0.0-0.9 % Normal IM GRAN % 0.400 Result Comment: IG% - Immature Granulocytes (promyelocytes, myelocytes and metamyelocytes) > 1% indicates that a LEFT SHIFT is Present. LAB L100.2620 2.0-7.7 X10 3/uL Normal Absolute Neut 5.7 LAB L100.2720 0.83-4.51 X10 3/ul Low Absolute Lymph 0.65 Performed By: #### L100.0100 #### [facility] [address] [place], [address] BASIC METABOLIC Collected: 10/21/2017 Status: F Source: [place] PROFILE (BMP) 10:27 AM [facility] TYPE CODE TESTS RESULT OUT OF RANGE REFERENCE UNITS LAB L501.0100 74-106 mg/dL Normal GLU 98 Result Comment: Please note revised GLUCOSE reference range effective 2017. LAB L501.1000 7-18 mg/dL Normal BUN 13 LAB L501.1100 0.55-1.02 mg/dL Normal CREAT,SERUM 0.92 Result Comment: The validity of the calculated GFR AND GFRAA in patients over 70 years has not been determined. Clinical correlation is essential. LAB L501.1110 >60 mL/min Normal EST GFR 63 Result Comment: Non- GFR Calc LAB L501.1115 >60 mL/min Normal EST GFR - AA 76 Result Comment: GFR Calc LAB L501.1300 10-20 RATIO Normal BUN/CRE 14.1 LAB L501.2200 8.5-10.1 mg/dL CA Normal 9.8 LAB L501.5300 136-145 mmol/L NA Normal 139 LAB L501.5600 3.5-5.1 mmol/L K Normal 3.7 LAB L501.5900 98-107 mmol/L CL Normal 99 LAB L501.6100 21.0-32.0 mmol/L High CO2 33.0 LAB L501.6200 5-15 Normal GAP 7 Performed By: #### L500.2500, L501.9520, L506.0400 #### [facility] [address] [place], [address] THYROID STIM HORMONE Collected: 10/21/2017 Status: F Source: [place] (TSH) 10:27 AM [facility] TYPE CODE TESTS RESULT OUT OF RANGE REFERENCE UNITS LAB L501.9520 0.358-3.74 uIU/mL Normal TSH 0.97 Performed By: #### L500.2500, L501.9520, L506.0400 #### [facility] [address] [place], [address] T4 FREE DIRECT Collected: 10/21/2017 Status: F Source: [place] 10:27 AM [facility] TYPE CODE TESTS RESULT OUT OF REFERENCE UNITS RANGE LAB L506.0400 0.76-1.46 ng/dL High T4 FREE 1.52 DIRECT Performed By: #### L500.2500, L501.9520, L506.0400 #### [facility] [address] [place], [address] DOWNTIME REPORT Observed: 09/15/2017 Status: F Source: [place] 12:11 PM [facility] Medical Records Department [address] [place] [address] Downtime Report MR#: [id number] Acct: [id number] Name: CLOVER HERNANDEZ Rep #: [id number] : 1940 76 From: Ry Sethi PCP: Care Physician, No Primary Status: REG RCR This patient was seen during an EMR downtime August 29, 2017 - September 05, 2017. This patient may have a combination of paper and electronic documentation or all paper documentation. All documentation is viewable within the e-chart portion of [employer] for each patient visit. Observed: 09/15/2017 Status: F Source: [place] CULTURE, URINE 10:00 AM [facility] Urine Culture Below infection level. ORGANISM 1: Yeast Like Organism [place] Count <1000 Performed By: #### M100.0650 #### [facility] [facility] [place], [address] Observed: 06/30/2017 Status: F Source: [place] CULTURE, URINE 1:38 PM [facility] Urine Culture There are no CLSI standards for interpretation of this Drug/Organism combination. ORGANISM 1: Aerococcus viridans. [place] Count 80,000-100,000 Performed By: #### M100.0650 #### [facility] [address] [place], [address] CBC W/DIFF, AUTOMATED Collected: 04/19/2017 Status: F Source: [place] 2:11 PM [facility] TYPE CODE TESTS RESULT OUT OF RANGE REFERENCE UNITS LAB L100.1000 4.4-11.0 K/mm3 Normal WBC 5.9 LAB L100.1200 4.2-5.4 M/mm3 Normal RBC 4.40 LAB L100.1300 12.0-15.0 g/dl Normal HGB 13.5 LAB L100.1400 37-47 % Normal HCT 40.7 LAB L100.1500 81-99 fL Normal MCV 92.5 LAB L100.1600 27.0-32.0 pg Normal MCH 30.7 LAB L100.1700 32-36 g/gl Normal MCHC 33.2 LAB L100.1810 11.6-14.6 % Normal RDW CV 14.6 LAB L100.1820 35.1-43.9 fl High RDW SD 49.0 LAB L100.1900 150-450 K/mm3 Normal PLT 181 LAB L100.2000 6.2-12.0 fl Normal MPV 9.5 LAB L100.2100 47-70 % High NEUT% 74.3 LAB L100.2200 19-41 % Low LY% 14.3 LAB L100.2300 0-10 % Normal MONO% 7.5 LAB L100.2400 0-5 % Normal EO% 3.1 LAB L100.2500 0-1 % Normal BASO% 0.3 LAB L100.2550 0.0-0.9 % Normal IM GRAN % 0.500 Result Comment: IG% - Immature Granulocytes (promyelocytes, myelocytes and metamyelocytes) > 1% indicates that a LEFT SHIFT is Present. LAB L100.2620 2.0-7.7 X10 3/uL Normal Absolute Neut 4.4 LAB L100.2720 0.83-4.51 X10 3/ul Normal Absolute Lymph 0.84 Performed By: #### L100.0100 #### [facility] [address] [place], [place], [address] BASIC METABOLIC Collected: 04/19/2017 Status: F Source: [place] PROFILE (BMP) 2:11 PM [facility] TYPE CODE TESTS RESULT OUT OF RANGE REFERENCE UNITS LAB L501.0100 70-110 mg/dL Normal GLU 110 Result Comment: Fasting Glucose result from 110 to <126 mg/dL suggests IMPAIRED HOMEOSTASIS per A.D.A. criteria. LAB L501.1000 7-18 mg/dL Normal BUN 13 LAB L501.1100 0.55-1.02 mg/dL Normal CREAT,SERUM 0.99 Result Comment: The validity of the calculated GFR AND GFRAA in patients over 70 years has not been determined. Clinical correlation is essential. LAB L501.1110 >60 mL/min Low EST GFR 58 Result Comment: Non- GFR Calc LAB L501.1115 >60 mL/min Normal EST GFR - AA 70 Result Comment: GFR Calc LAB L501.1300 10-20 RATIO Normal BUN/CRE 13.1 LAB L501.2200 8.5-10.1 mg/dL CA Normal 10.1 LAB L501.5300 136-145 mmol/L NA Normal 136 LAB L501.5600 3.5-5.1 mmol/L Low K 3.2 LAB L501.5900 98-107 mmol/L CL Normal 98 LAB L501.6100 21.0-32.0 mmol/L Normal CO2 29.0 LAB L501.6200 5-15 Normal GAP 9 Performed By: #### L500.2500, L501.9520, L506.0400 #### [facility] [address] [place], [place], [address] THYROID STIM HORMONE Collected: 04/19/2017 Status: F Source: [place] (TSH) 2:11 PM [facility] TYPE CODE TESTS RESULT OUT OF RANGE REFERENCE UNITS LAB L501.9520 0.358-3.74 uIU/mL Normal TSH 1.31 Performed By: #### L500.2500, L501.9520, L506.0400 #### [facility] [address] [place], [address] T4 FREE DIRECT Collected: 04/19/2017 Status: F Source: [place] 2:11 PM [facility] TYPE CODE TESTS RESULT OUT OF RANGE REFERENCE UNITS LAB L506.0400 0.76-1.46 ng/dL Normal T4 FREE 1.28 DIRECT Performed By: #### L500.2500, L501.9520, L506.0400 #### [facility] [address] [place], [address] Observed: 04/19/2017 Status: F Source: [place] CULTURE, URINE 11:40 AM [facility] Urine Culture #1 There are no CLSI standards for interpretation of this Drug/Organism combination. #2 Below infection level. ORGANISM 1: Aerococcus viridans. [place] Count >100,000 ORGANISM 2: Mixed Gram Positive Organisms [place] Count <1000 Performed By: #### M100.0650 #### [facility] [address] [place], [address] Observed: 03/15/2017 Status: F Source: [place] CULTURE, URINE 2:00 PM [facility] Urine Culture There are no CLSI standards for interpretation of this Drug/Organism combination. ORGANISM 1: Aerococcus urinae [place] Count >100,000 Performed By: #### M100.0650 #### [facility] [address] [place], [address] ALLERGIES ALLERGIES DATE TYPE / CODE NAME / CODE REACTION SEVERITY SOURCE 02/24/2018 Drug Sulfa Rash [place] [facility] Allergy/416 (Sulfonamide Hospital 857216(SN Antibiotics)/F0 Repository [address]) 10209857(RXNORM ) 02/24/2018 Drug adhesive Rash [place] [facility] Allergy/416 tape/[id number] Hospital 756295(SNOM (RXNORM) Repository ED CT) 02/24/2018 Drug bee venom Swelling Unknown [facility] Allergy/416 protein ([facility] 890476(SNOM bee)/[id number] Repository ED CT) (RXNORM) Drug/441650 sulfa drugs Rash Moderate Holiness 003([facility] CT) System Repository ENCOUNTERS ENCOUNTERS ADMIT/DISCHARGE ACCOUNT NUMBER ADMITTING ENCOUNTER LOCATION SOURCE CLASS 02/26/2018/02/29/20 [id number] Lizeth, Inpatient [place] [facility] ding:[id number] Repository : LB051Vry: 1 02/26/2018 [id number] Agg[place], Ambulatory BMSBuilding: [place] Hauser BMS.[facility] Repository 02/26/2018 [id number] [place], Ambulatory BMSBuilding: [place] Murtaza BMS.[facility] Repository 02/24/2018 [id number] Agyepong, Ambulatory BMSBuilding: [place] Murtaza BMS.[facility] Repository 02/24/2018 [id number] Agyepong, Ambulatory BMSBuilding: [place] Murtaza BMS.[facility] Repository 02/24/2018 [id number] Agyepong, Ambulatory BMSBuilding: [place] Murtaza BMS.[facility] Repository 02/23/2018 [id number] Ambulatory BMSBuilding: [place] BMS.[facility] Repository 02/23/2018 [id number] Ambulatory [facility] ding:OMD Repository 02/09/2018/02/13/[id number] Lizzie Inpatient UHCBuilding: [place] [address] Wayne Mariscal P228Mjfr: Hospitals S9199Wxy: Repository [id number] 01/31/2018 [id number] Ambulatory [facility] Repository 01/18/2018/01/19/20 [id number] Wayne Aguilar [address] ding:[facility] Repository 01/18/2018 [id number] Ambulatory [address] [place] [address] Repository 01/17/2018/01/18/20 [id number] Ambulatory [address] ding:ENRoom: Repository AC11 01/17/2018/01/18/20 [id number] Ambulatory BMSBuilding: [place] 18 BMS.CF.[facility] Repository 01/13/2018 [id number] Ambulatory [address] [place] [address] Repository 01/09/2018/01/10/20 [id number] Ambulatory BMSBuilding: [place] 18 BMS.[facility] Repository 01/05/2018/01/07/[id number] Lizzie Ambulatory UHCBuilding: [place] [address] Wayne Quinones N994Htme: Hospitals Q6152Aef: Repository [id number] 01/02/2018 [id number] Ambulatory [facility] ding:LAB.FUT Repository URE 12/27/2017 [id number] Ambulatory [facility] Repository 12/20/2017 [id number] Ambulatory [address] [place] [address] Repository 12/05/2017 [id number] Ambulatory [facility] ding:CT Repository 11/24/2017 [id number] [facility] ding:LAB Repository 11/24/2017 [id number] Ambulatory BMSBuilding: [place] BMS.CF.[facility] Repository 10/21/2017 [id number] Ambulatory [facility] ding:BFHLAB Repository 09/15/2017 [id number] Ambulatory [facility] ding:LABSPEC Repository 06/30/2017 [id number] Ambulatory [facility] ding:LAB.FUT Repository URE 05/26/2017 [id number] Ambulatory BMSBuilding: [place] BMS.[facility] Repository 04/19/2017 [id number] Ambulatory [facility] ding:BFHLAB Repository 04/19/2017 [id number] Ambulatory [facility] ding:LAB.FUT Repository URE 03/15/2017 [id number] [facility] ding:LABSPEC Repository PAYERS PAYERS ENCOUNTER GUARANTOR PAYER SUBSCRIBER SOURCE 02/26/2018 CLOVER Amado Primary CLOVER F [place] [id number] Insurance:MEDICARE PETRICDOB: [facility] PART A [facility] [address] [id number] Repository [address]Roe: [phone] [id number] [phone] () Date:2018-02-24 02/26/2018 Secondary CLOVER F [place] Insurance:ANTHEMPolic PETRICDOB: Community y Number: [id number] [id number] Repository Date:[id number] [address] [address]TV: 02/26/2018 Tertiary NOT GIVENUNK [place] Insurance:SELF PAY [facility] Number: Effective Repository Date:2018-02-24 02/26/2018 CLOVER Amado Primary CLOVER F [place] [id number] Insurance:MEDICARE PETRICDOB: [facility] PART A [facility] [id number] Number: Repository [id number]: [phone] [id number] [phone] () Date:2018-02-24 02/26/2018 Secondary CLOVER F Sparkman Insurance:ANTHEMPolic PETRICDOB: Community y Number: [id number] Hospital [id number] Repository Date:9728-90-68Ix [address] [place] [address] 02739CC: 02/26/2018 Tertiary NOT GIVENUNK Dayna Insurance:SELF PAY [facility] Number: Effective Repository Date:2018-02-26 02/26/2018 CLOVER F Primary CLOVER F Dayna [id number] Insurance:MEDICARE PETRICDOB: Community [facility] PART A [facility] [address] [id number] Number: Repository 617[address]Yfu: 419 [id number] [phone] () Date:2018-02-24 02/26/2018 Secondary CLOVER F Dayna Insurance:ANTHEMPolic PETRICDOB: Community y Number: [id number] Indian Dental [id number] Repository Date:0035-03-94Dt [address] [place] [address] 17754MV: 02/26/2018 Tertiary NOT GIVENUNK Sparkman Insurance:SELF PAY [facility] Number: Effective Repository Date:2018-02-26 02/24/2018 CLOVER F Primary CLOVER F Dayna [id number] Insurance:MEDICARE PETRICDOB: Community [facility] PART A [facility] [address] [id number] Number: Repository 384[address]Phs: 419 [id number] [phone] () Date:2018-02-24 02/24/2018 Secondary CLOVER F Dayna Insurance:ANTHEMPolic PETRICDOB: Community y Number: [id number] Indian Dental [id number] Repository Date:4806-91-53Uk [address]Ofljobx [place] [address]QZ: 02/24/2018 Tertiary NOT GIVENUNK Dayna Insurance:SELF PAY [facility] Number: Effective Repository Date:2018-02-24 02/24/2018 CLOVER F Primary CLOVER F Dayna [id number] Insurance:MEDICARE PETRICDOB: Community [facility] PART [facility] olic [id number] Number: Repository 126[address]Xay: 419 [id number] [phone] (HP) Date:2018-02-24 02/24/2018 Secondary CLOVER F Dayna Insurance:ANTHEMPolic PETRICDOB: Community y Number: [id number] Hospital [id number] Repository Date:1750-52-59Uz [address] [place] [address] 64252AX: 02/24/2018 Tertiary NOT GIVENUNK Sparkman Insurance:SELF PAY [facility] Number: Effective Repository Date:2018-02-24 02/24/2018 CLOVER F Primary CLOVER F Sparkman [id number] Insurance:MEDICARE PETRICDOB: [facility] PART A [facility] [address] [id number], [place] Number: Repository 213[address]Irv: 419 [id number] [phone] (HP) Date:2018-02-24 02/24/2018 Secondary CLOVER F Dayna Insurance:ANTHEMPolic PETRICDOB: Community y Number: [id number] Hospital [id number] Repository Date:2037-87-50Sj [address] [place] [address] 57734ZR: 02/24/2018 Tertiary NOT GIVENUNK Sparkman Insurance:SELF PAY [facility] Number: Effective Repository Date:2018-02-24 02/23/2018 CLOVER F Primary CLOVER F Dayna [id number] Insurance:MEDICARE PETRICDOB: [facility] PART A [facility] [address] [id number] Number: Repository 157[address]Oap: 419 [id number] [phone] (HP) Date:2005-10-26 02/23/2018 Secondary CLOVER F Sparkman Insurance:ANTHEMPolic PETRICDOB: Community y Number: [id number] Hospital [id number] Repository Date:4871-62-71Iz [address]Eltiyav, [place] [address]OW: 02/23/2018 Tertiary NOT GIVENUNK Sparkman Insurance:SELF PAY [facility] Number: Effective Repository Date:2018-02-23 02/23/2018 [facility] [id number] Insurance:MEDICARE PETRICDOB: Community [facility] PART A BPolicy [id number], [place] Number: Repository [address]Nhf: 419 [id number] [phone] () Date:2005-10-26 02/23/2018 Secondary [facility] Insurance:ANTHEMPolic PETRICDOB: Community y Number: [id number] Indian Dental [id number] Repository Date:8395-23-97An [address]Oqqtmea, [place] [address]GL: 02/23/2018 Tertiary NOT GIVENUNK Dayna Insurance:SELF PAY [facility] Hospital Number: Effective Repository Date:2016-06-22 02/09/2018 [facility] PETRICDOB: Insurance:MedicarePol PETRICDOB: Hospitals icy Number: [id number] Repository [address] [facility] [id number] [address] [place] Date:4524-39-57Qmgh [place], [place] [id number]: Name:Johnna Kerr [id number]: () () 02/09/2018 [facility] Insurance:MedicarePol PETRICDOB: Hospitals icy Number: [id number] Repository [id number] [address] Date:5516-10-49Rchm [place], [place] Name:Johnna Fried [id number]: () 02/09/2018 On license of [facility] Insurance:AnthemPolic PETRICDOB: Hospitals y Number: [id number] Repository [id number] [address] Date:Plan Name:[place], [place] [phone]: (HP) 01/31/2018 [facility] PETRICDOB: Insurance:MedicarePol PETRICDOB: Hospitals icy Number: [id number] Repository [address] [id number] [address] [place], [place] Date:3826-97-55Anan [place], [place] [id number]: Name:Johnna Kerr [id number]: (HP) (HP) 01/31/2018 [facility] Insurance:MedicarePol PETRICDOB: Hospitals icy Number: [id number] Repository [id number] [address] Date:5952-37-29Fwkc [place], [place] Name:Johnna Fried [id number]: (HP) 01/31/2018 On license of [facility] Insurance:AnthemPolic PETRICDOB: Hospitals y Number: [id number] Repository [id number] [address] Date:Plan Name:Health [place], [place] [phone]: () 01/18/2018 [facility] PETRICDOB: Insurance:MedicarePol PETRICDOB: [facility] icy Number: Effective [id number] System [address] Date:2018-01-[address] Repository [place], [place] 8346-71-74[place] [address]Zzd: Name:CD:[id number] [facility] [address]Qaj: [id number], [place] () [id number]: (800) () 000-0000 () 01/18/2018 [facility] Insurance:ANTHEMPolic PETRICDOB: [facility] y Number: Effective [id number] System Date:2018-01-[address] Repository 2554-49-32Qtdh [place], [place] Name:Hai LOCKETT [address]Dgx: 465[address]FQPKSQQ, [place] [address]GG: (106) (HP) 000-0000 () 01/18/2018 [facility] PETRICDOB: Insurance:MedicarePol PETRICDOB: Hospitals icy Number: [id number] Repository [address] [id number] [address] [place] [place] Date:5985-24-32Jwkx [place], [place] [id number]: Name:Johnna Kerr [id number]: () (HP) 01/18/2018 [facility] Insurance:MedicarePol PETRICDOB: Hospitals icy Number: [id number] Repository [id number] [address] Date:4638-73-79Nmnl [place] Name:Johnna Fried [id number]: (HP) 01/18/2018 On license of [facility] Insurance:AnthemPolic PETRICDOB: Hospitals y Number: [id number] Repository [id number] [address] Date:Plan Name:[place], [place] [id number]: (HP) 01/18/2018 On license of [facility] Insurance:AnthemPolic PETRICDOB: Hospitals y Number: [id number] Repository [id number] [address] Date:Plan Name:[place], [place] [phone]: (HP) 01/17/2018 [facility] [id number] Insurance:MEDICARE PETRICDOB: Community [facility] PART A BPolicy [id number], [place] Number: Repository [address]Akr: (156) [id number] [phone] (HP) Date:2018-01-09 01/17/2018 Secondary CLOVER F Dayna Insurance:ANTHEMPolic PETRICDOB: Community y Number: [id number] Hospital [id number] Repository Date:7648-93-66Px [address] [place] [address] 78371SI: 01/17/2018 Tertiary NOT GIVENUNK Dayna Insurance:SELF PAY Community [facility] Number: Effective Repository Date:2018-01-09 01/17/2018 CLOVER F Primary CLOVER F Dayna [id number] Insurance:MEDICARE PETRICDOB: Community [facility] PART A BPolicy [id number], [place] Number: Repository [address]Nsu: 419 [id number] [phone] (HP) Date:2018-01-09 01/17/2018 Secondary CLOVER F Dayna Insurance:ANTHEMPolic PETRICDOB: Community y Number: [id number] Hospital [id number] Repository Date:0837-10-39Bu [address] [place] [address] 58125RW: 01/17/2018 Tertiary NOT GIVENUNK Dayna Insurance:SELF PAY [facility] Number: Effective Repository Date:2018-01-17 01/13/2018 CLOVER F Primary CLOVER F [facility] PETRICDOB: Insurance:MedicarePol PETRICDOB: Hospitals icy Number: [id number] Repository [facility] [id number] [address] [place] [address], [place] Date:7506-18-60IybiMultiCare [facility], [address]Nuv: (419) Name:[place] [address]Esq: [phone] (HP) (HP) 01/13/2018 Secondary CLOVER F [employer] Insurance:MedicarePol PETRICDOB: Hospitals icy Number: [id number] Repository [id number] 2 [facility] Date:6580-61-65FhspMultiCare [facility], Name:[place] [address]Ycc: (HP) 01/13/2018 Tertiary CLOVER F [facility] Insurance:AnthemPolic PETRICDOB: Hospitals y Number: [id number] Repository [id number] [address] Date:Plan Name:[place], [place] [address]Lqd: (HP) 01/09/2018 Clover F Primary Clover F Sparkman [id number] Insurance:MEDICARE PetricDOB: Community [facility] [address] PART A BPolicy [id number] [place], [place] Number: Repository [id number]: ([phone] [id number] [phone] (HP) Date:2018-01-06 01/09/2018 Secondary Clover F Sparkman Insurance:ANTHEMPolic PetricDOB: Community y Number: [id number] Indian Dental [id number] Repository Date:5666-93-56Ld [address] [address]FU: 01/09/2018 [facility] Insurance:SELF PAY Community [facility] Number: Effective Repository Date:2018-01-09 01/05/2018 CLOVER F Primary [facility] University PETRICDOB: Insurance:MedicarePol PETRICDOB: Hospitals icy Number: [id number] Repository [facility] [id number] 2 [place], [place] Date:0708-71-21Khvi [facility], [address]Uve: 419) Name:John[place] [address]Yll: [phone] (HP) (HP) 01/05/2018 Secondary [facility] Insurance:MedicarePol PETRICDOB: Hospitals icy Number: [id number] Repository [id number] [address] Date:3256-58-54FqyyMultiCare [facility], Name:[place] [address]Hcc: (HP) 01/05/2018 Tertiary [facility] Insurance:AnthemPolic PETRICDOB: Hospitals y Number: [id number] Repository [id number] [address] Date:Plan Name:[place], [place] [address]Hkb: (HP) 01/02/2018 Clover F Primary Clover F Sparkman [id number] Insurance:MEDICARE PetricDOB: Community [facility] [address] PART A BPolicy [id number] [place], [place] Number: Repository [address]Qwc: 419 [id number] [phone] (HP) Date:2017-12-29 01/02/2018 Secondary Clover F Sparkman Insurance:ANTHEMPolic PetricDOB: Community y Number: [id number] Hospital [id number] Repository Date:4622-27-25Hz[address] [address]QW: 01/02/2018 Tertiary NOT GIVENUNK Dayna Insurance:SELF PAY [facility] Number: Effective Repository Date:2017-12-29 12/27/2017 [facility] PetricDOB: Insurance:MedicarePol PetricDOB: Hospitals icy Number: [id number] [facility]ository [facility] [id number] [address], [place] Date:8671-05-29Rdop [place], [place] [address]Oop: 419) Name:Johnna Kerr [address]Nlr: (HP) [phone] (HP) 12/27/2017 [facility] Insurance:MedicarePol PetricDOB: Hospitals icy Number: [id number] Repository [id number] [address] Date:8494-58-59Neww [place], [place] Name:Johnna Fried [address]Hzw: (HP) 12/27/2017 Tertiary [facility] Insurance:AnthemPolic PetricDOB: Hospitals y Number: [id number] Repository [id number] [address] Date:Plan Name:[place], [place] [address]Mni: (HP) 12/20/2017 [facility] PetricDOB: Insurance:MedicarePol PetricDOB: Hospitals icy Number: [id number] Repository [facility] [id number] [address], [place] Date:5580-96-04Qlmi [place], [place] [address]Jcf: 419 Name:Johnna Kerr [id number]: (HP) [phone] (HP) 12/20/2017 Secondary Clover F [facility] Insurance:MedicarePol PetricDOB: Hospitals icy Number: [id number] Repository [id number] [address] Date:0960-94-63Xnde [place], [place] Name:Johnna Fried [id number]: (HP) 12/20/2017 [facility]iary [facility]:AnthemPolic PetricDOB: Hospitals y Number: [id number] Repository [id number] [address] Date:Plan Name:[place], [place] [address]Psn: (HP) 12/05/2017 Clover F Primary Clover F Sparkman [id number] Insurance:MEDICARE PetricDOB: Community [facility] [address] PART A [facility] [id number] [place] Number: Repository [id number]: 419 [id number] [phone] (HP) Date:2017-11-24 12/05/2017 Secondary Clover F Dayna Insurance:ANTHEMPolic PetricDOB: Community y Number: [id number] Hospital [id number] Repository Date:2241-54-92Mz[address] [address]LI: 12/05/2017 Tertiary NOT GIVENUNK Dayna Insurance:SELF PAY Community [facility] Number: Effective Repository Date:2017-11-24 11/24/2017 Clover F Primary Clover F Dayna [id number] Insurance:MEDICARE PetricDOB: Community [facility] PART A [facility] [address] [id number] [place] Number: Repository [id number]: ([phone]) [id number] [phone] (HP) Date:2017-11-24 11/24/2017 Secondary Clover F Dayna Insurance:ANTHEMPolic PetricDOB: Community y Number: [id number] Hospital [id number] Repository Date:3751-42-78Vi [address]Irhtfzp, [place] [address]KL: 11/24/2017 Tertiary NOT GIVENUNK Sparkman Insurance:SELF PAY [facility] Number: Effective Repository Date:2017-11-24 11/24/2017 Clover F Primary Clover F Sparkman [id number] Insurance:MEDICARE PetricDOB: Community [facility] PART A olicy [id number] [place] Number: Repository [id number]: [phone]) [id number] [phone] () Date:2005-10-26 11/24/2017 Secondary Clover F Dayna Insurance:ANTHEMPolic PetricDOB: Community y Number: [id number] [id number] Repository Date:9868-24-43[address]Rxmuqrf, [place] [address]WO: 11/24/2017 Tertiary NOT GIVENUNK Sparkman Insurance:SELF PAY [facility] Number: Effective Repository Date:2017-11-24 10/21/2017 Clover F Primary Clover F Dayna [id number] Insurance:MEDICARE PetricDOB: Community [address] PART A olic [id number] [place], [place] Number: Repository [id number]: [phone]) [id number] [phone] () Date:2017-10-21 10/21/2017 Secondary Clover F Dayna Insurance:ANTHEMPolic PetricDOB: Community y Number: [id number] Hospital [id number] Repository Date:9860-68-53Bk [address]Kryhyrf, [place] [address]BK: 10/21/2017 Tertiary NOT GIVENUNK Dayna Insurance:SELF PAY Community [facility] Number: Effective Repository Date:2017-10-21 09/15/2017 Clover F Primary Clover F Dayna [id number] Insurance:MEDICARE PetricDOB: Community [address] PART A [facility] [address] [id number] [facility] [place] Number[place] Repository [address]Auo: 419 [id number] [phone] () Date:2017-09-15 09/15/2017 Secondary Clover F Sparkman Insurance:ANTHEMPolic PetricDOB: Community y Number: [id number] Hospital [id number] Repository Date:8729-14-80Nt [address]Jzpdxxf [place] [address]WN: 09/15/2017 Tertiary NOT GIVENUNK Sparkman Insurance:SELF PAY [facility] Number: Effective Repository Date:2017-09-15 06/30/2017 Clover F Primary Clover F Sparkman [id number] Insurance:MEDICARE PetricDOB: Community [address] PART A [facility] [address] [id number] [facility]iatric [facility] Number: Repository [address]Hbl: 419 [id number] [phone] () Date:2017-06-30 06/30/2017 Secondary Clover F Sparkman Insurance:ANTHEMPolic PetricDOB: Community y Number: [id number] Hospital [id number] Repository Date:7007-19-27Ga [address]Pwestqm [place] [address]EA: 06/30/2017 Tertiary NOT GIVENUNK Dayna Insurance:SELF PAY [facility] Number: Effective Repository Date:2017-06-30 05/26/2017 Clover F Primary Clover F Dayna [id number] Insurance:MEDICARE PetricDOB: Community [address] PART A [facility] [address] [id number] [facility]iatric [facility] Number: Repository [address]Rit: 419 [id number] [phone] () Date:2005-10-26 05/26/2017 Secondary Clover F Dayna Insurance:ANTHEMPolic PetricDOB: Community y Number: [id number] Hospital [id number] Repository Date:8732-64-99Fh [address]Wicgcxt, [place] [address]QD: 05/26/2017 Tertiary NOT GIVENUNK Sparkman Insurance:SELF PAY Community [facility] Number: Effective Repository Date:2017-05-26 04/19/2017 Clover F Primary Clover F Dayna [id number] Insurance:MEDICARE PetricDOB: Community [address] PART A [facility] [address] [id number] [facility]iatric [facility] Number: Repository [address]Jme: 419 [id number] [phone] (HP) Date:2017-04-19 04/19/2017 Secondary Clover F Dayna Insurance:ANTHEMPolic PetricDOB: Community y Number: [id number] Indian Dental [id number] Repository Date:3751-52-02Aq [address] [place] [address]IR: 04/19/2017 Tertiary NOT GIVENUNK Sparkman Insurance:SELF PAY [facility] Number: Effective Repository Date:2017-04-19 04/19/2017 Clover F Primary Clover F Sparkman [id number] Insurance:MEDICARE PetricDOB: Community [address] PART A [facility] [address] [id number] [facility]iatric [facility] Number[place] Repository [address]Trg: 419 [id number] [phone] () Date:2017-04-18 04/19/2017 Secondary Clover F Sparkman Insurance:ANTHEMPolic PetricDOB: Community y Number: [id number] Indian Dental [id number] Repository Date:7212-18-86Iu [address], [place] [address]CE: 04/19/2017 Tertiary NOT GIVENUNK Sparkman Insurance:SELF PAY [facility] Hospital Number: Effective Repository Date:2017-04-18 03/15/2017 Clover F Primary Clover F Sparkman [id number] Insurance:MEDICARE PetricDOB: Community [address] PART A [facility] [id number] [facility]iatric [facility] Number: Repository [address]Iyd: 419 [id number] [phone] (HP) Date:2017-03-15 03/15/2017 Secondary Clover F Dayna Insurance:ANTHEMPolic PetricDOB: Community y Number: [id number] Hospital [id number] Repository Date:3819-48-37Xh [address]Xibxkbq, [place] [address]VP: 03/15/2017 Tertiary NOT GIVENUNK Dayna Insurance:SELF PAY [facility] Number: Effective Repository Date:2017-03-15
== END 2018-02-28 19:45 | disposition hospice, home (50) | DRG 699 ==
LOC: ED 16:36 → MS3 19:55
PROVIDERS: Family Medicine; Admitting Provider Hospitalist; Emergency Provider Emergency Medicine; Family Provider Family Medicine; PCP Family Medicine; Visit Provider Internal Medicine
DX: T83.091A Other mechanical complication of indwelling urethral catheter, initial encounter (principal); I82.403 Acute embolism and thrombosis of unspecified deep veins of lower extremity, bilateral; L89.302 Pressure ulcer of unspecified buttock, stage 2; C67.9 Malignant neoplasm of bladder, unspecified; D50.0 Iron deficiency anemia secondary to blood loss (chronic); N32.0 Bladder-neck obstruction; E03.9 Hypothyroidism, unspecified; N32.89 Other specified disorders of bladder; F32.9 Major depressive disorder, single episode, unspecified; Z51.5 Encounter for palliative care; N31.9 Neuromuscular dysfunction of bladder, unspecified; E87.6 Hypokalemia; Z92.3 Personal history of irradiation; Z87.891 Personal history of nicotine dependence; Z79.01 Long term (current) use of anticoagulants; Z86.718 Personal history of other venous thrombosis and embolism; Z22.39 Carrier of other specified bacterial diseases
CPT/HCPCS: 36415; 36591; 51702; 80048; 81001; 82274; 82728; 83010; 83540; 83550; 85014; 85018; 85025; 85610; 86644; 86850; 86900; 86920; 86922; 87077; 87086; 87088; 87186; 97110; 97162; 97166; 97530; 97535; 97802; 99282; J1756; J7040; J7050; P9016; P9040; A4216